=== PATIENT | female | born 1975 | race African-American/Black ===

== ENCOUNTER 2017-01-31 22:15 | Inpatient (IN) | payer BC ==
[~2017-01-31] VITALS: Ht 167.6 cm; Wt 82.6 kg
[~2017-01-31 22:15] MED LIST: FERR-36 PO; Hydrocodone/Acetaminophen PO
--- NOTE | 2017-01-31 22:29 | PHYS DOC ---
Past Medical History Past Medical History: GERD, Other Additional Past Medical Histor: multiple spontaneous pneumothoraxes Past Surgical History: Other Additional Past Surgical Histo: multiple chest tubes, PARTIAL HYSTERECTOMY Alcohol Use: Rarely Drug Use: None Adult General Chief Complaint Chief Complaint: SHORTNESS OF BREATH HPI HPI Patient is a 41 year old female who presents with 12 hr hx of right moderate chest discomfort with shortness of breath similar to previous collapsed lung. She's had several PTX before and had pleurodesis done by pulmonolgist Dr. Torres in 2013 and multiple VATS prior to this as well. Denies any leg pain or swelling. Review of Systems Review of Systems Constitutional: Denies fever or chills [] Eyes: Denies change in visual acuity, redness, or eye pain [] HENT: Denies nasal congestion or sore throat [] Respiratory: Denies cough or shortness of breath [] Cardiovascular: No additional information not addressed in HPI [] GI: Denies abdominal pain, nausea, vomiting, bloody stools or diarrhea [] : Denies dysuria or hematuria [] Musculoskeletal: Denies back pain or joint pain [] Integument: Denies rash or skin lesions [] Neurologic: Denies headache, focal weakness or sensory changes [] Endocrine: Denies polyuria or polydipsia [] Current Medications Current Medications Allergies Allergies Allergies Coded Allergies Type Severity Reaction Last Updated Verified Penicillins Allergy Intermediate "Swells" 11/04/13 Yes Physical Exam Physical Exam Constitutional: Well developed, well nourished, no acute distress, non-toxic appearance. [] HENT: Normocephalic, atraumatic, bilateral external ears normal, oropharynx moist, no oral exudates, nose normal. [] Eyes: PERRLA, EOMI, conjunctiva normal, no discharge. [] Neck: Normal range of motion, no tenderness, supple, no stridor. [] Cardiovascular:Heart rate regular rhythm, no murmur [] Lungs & Thorax: Bilateral breath sounds clear to auscultation [] Abdomen: Bowel sounds normal, soft, no tenderness, no masses, no pulsatile masses. [] Skin: Warm, dry, no erythema, no rash. [] Back: No tenderness, no CVA tenderness. [] Extremities: No tenderness, no cyanosis, no clubbing, ROM intact, no edema. [] Neurologic: Alert and oriented X 3, normal motor function, normal sensory function, no focal deficits noted. [] Psychologic: Affect normal, judgement normal, mood normal. [] Current Patient Data Vital Signs Vital Signs Date Time Temp Pulse Resp B/P (MAP) Pulse Ox O2 Delivery O2 Flow Rate FiO2 01/31/17 22:50 77 20 152/100 (117) 98 Room Air 01/31/17 22:20 97.8 97.8 Lab Values Laboratory Tests Test 01/31/17 22:35 White Blood Count 6.5 x10^3/uL (4.0-11.0) Red Blood Count 4.66 x10^6/uL (3.50-5.40) Hemoglobin 13.8 g/dL (12.0-15.5) Hematocrit 40.5 % (36.0-47.0) Mean Corpuscular Volume 87 fL (79-100) Mean Corpuscular Hemoglobin 30 pg (25-35) Mean Corpuscular Hemoglobin Concent 34 g/dL (31-37) Red Cell Distribution Width 14.2 % (11.5-14.5) Platelet Count 279 x10^3/uL (140-400) Neutrophils (%) (Auto) 50 % (31-73) Lymphocytes (%) (Auto) 43 % (24-48) Monocytes (%) (Auto) 5 % (0-9) Eosinophils (%) (Auto) 1 % (0-3) Basophils (%) (Auto) 1 % (0-3) Neutrophils # (Auto) 3.3 x10^3uL (1.8-7.7) Lymphocytes # (Auto) 2.8 x10^3/uL (1.0-4.8) Monocytes # (Auto) 0.3 x10^3/uL (0.0-1.1) Eosinophils # (Auto) 0.1 x10^3/uL (0.0-0.7) Basophils # (Auto) 0.0 x10^3/uL (0.0-0.2) Sodium Level 139 mmol/L (136-145) Potassium Level 4.2 mmol/L (3.5-5.1) Chloride Level 103 mmol/L (98-107) Carbon Dioxide Level 25 mmol/L (21-32) Anion Gap 11 (6-14) Blood Urea Nitrogen 11 mg/dL (7-20) Creatinine 0.6 mg/dL (0.6-1.0) Estimated GFR (Cockcroft-Gault) 134.0 BUN/Creatinine Ratio 18 (6-20) Glucose Level 107 mg/dL (70-99) H Calcium Level 9.3 mg/dL (8.5-10.1) Total Bilirubin 0.3 mg/dL (0.2-1.0) Aspartate Amino Transferase (AST) 18 U/L (15-37) Alanine Aminotransferase (ALT) 23 U/L (14-59) Alkaline Phosphatase 49 U/L (46-116) Total Protein 7.9 g/dL (6.4-8.2) Albumin 4.0 g/dL (3.4-5.0) Albumin/Globulin Ratio 1.0 (1.0-1.7) Laboratory Tests 01/31/17 22:35 Laboratory Tests 01/31/17 22:35 EKG EKG EKG [sinus rhythm rate of 76 no [facility]I [facility] normal interpretation by me] Radiology/Procedures Radiology/Procedures Chest x-ray [30-40% pneumothorax on the right] Course & Med Decision Making Course & Med Decision Making Pertinent Labs and Imaging studies reviewed. (See chart for details) The patient is admitted in stable pulse ox 95-96% on room air pulse rate in the 80s. Discussed case with pulmonology who asked that I place a chest tube. Discussed case with Dr. Mallory hospitalist covering for Dr. Camarena; agrees to admit the patient. No CT surgeon promotional marketing analyst tonight. Procedure right thoracostomy tube placement: consent obtained, time out done by me, 1% lido local 15-20 ml, betadine prep w usual sterile prep, 11 blade scalpel used for skin incision, chest cavity penetrated with blunt curved hemostats hunt of air seen/felt, finger sweep done prior to placement of tube no obvious adhesions, 24 FR placed, suture 0-silk placed, thoracic placement confirmed with cxr and gush of air on entrance to chest cavity, tolerated well no complications, blood loss less than 5 cc. lung not fully inflated yet on initial post placement xray. [] Dragon Disclaimer Dragon Disclaimer This electronic medical record was generated, in whole or in part, using a voice recognition dictation system. Departure Departure Impression: Primary Impression: Spontaneous pneumothorax Additional Impression: chest pain associated with spontaneous pneumothorax Disposition: ADMITTED INPATIENT Condition: IMPROVED Referrals: JAMARCUS CAMARENA MD (PCP) Problem Qualifiers AGUS ATWOOD MD Jan 31, 2017 22:29
[2017-01-31] MEDS ORDERED: ONDANSETRON PF 4 MG/2 ML VIAL. IV ONE (23:00)
[2017-01-31] MEDS ORDERED: LIDOCAINE 1% / SOD BICARB 8.4% 20 ML VIAL. IJ ONE (23:00)
[2017-01-31] MEDS ORDERED: HYDROmorphone 2 MG/ML VIAL IV ONE (23:00)
[2017-01-31] MEDS ORDERED: MIDAZOLAM HCL/PF 5 MG/5 ML VIAL. ONE (23:02)
[2017-01-31 23:12] LABS: BASO % 1 % (0-3); EOS % 1 % (0-3); HEMATOCRIT 40.5 % (36.0-47.0); HEMOGLOBIN 13.8 g/dL (12.0-15.5); LYMPH # 2.8 x10^3/uL (1.0-4.8); LYMPH % 43 % (24-48); MEAN CORPUSCULAR HEMOGLOBIN 30 pg (25-35); MEAN CORPUSCULAR HGB CONC 34 g/dL (31-37); MEAN CORPUSCULAR VOLUME 87 fL (79-100); MONO % 5 % (0-9); NEUT % 50 % (31-73); PLATELET COUNT 279 x10^3/uL (140-400); RED BLOOD COUNT 4.66 x10^6/uL (3.50-5.40); RED CELL DISTRIBUTION WIDTH 14.2 % (11.5-14.5); WHITE BLOOD COUNT 6.5 x10^3/uL (4.0-11.0)
[2017-01-31] MEDS ORDERED: ONDANSETRON PF 4 MG/2 ML VIAL. IV PRN (23:15)
[2017-01-31] MEDS ORDERED: fentaNYL PF VIAL 100 MCG/2 ML VIAL IV ONE (23:15)
[2017-01-31] MEDS ORDERED: ACETAMINOPHEN 325 MG TABLET. PO PRN (23:15)
[2017-01-31 23:20] LABS: CALCIUM 9.3 mg/dL (8.5-10.1); CREATININE 0.6 mg/dL (0.6-1.0); POTASSIUM 4.2 mmol/L (3.5-5.1)
[2017-01-31 23:26] LABS: TOTAL BILIRUBIN 0.3 mg/dL (0.2-1.0); TOTAL PROTEIN 7.9 g/dL (6.4-8.2)
[2017-01-31] MEDS: fentaNYL PF VIAL 100 MCG/2 ML VIAL IV PRN (23:30)
[2017-02-01] VITALS (27 sets, daily range): BP systolic 106–166; BP diastolic 5–88
[2017-02-01] MEDS ORDERED: MIDAZOLAM HCL/PF 2 MG/2 ML VIAL. IV ONE ×2
[2017-02-01] MEDS: fentaNYL PF VIAL 100 MCG/2 ML VIAL IV PRN ×5 (00:24→16:26)
[2017-02-01] MEDS ORDERED: FAMO40TA4 PO (01:51)
[2017-02-01] MEDS: KETOROLAC TROMETHAMINE 10 MG TABLET PO PRN ×3 (02:28→21:43)
[2017-02-01] MEDS ORDERED: ACETAMINOPHEN 325 MG TABLET. PO PRN (06:00)
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
[2017-02-01] MEDS: PANTOPRAZOLE 40 MG TABLET.DR. PO SCH (07:52)
--- NOTE | 2017-02-01 08:17 | RAD ---
AP chest radiograph 01/31/2017. Clinical indication: Shortness of breath with history of a pneumothorax on the right. Comparison: CTA chest 05/29/2016, chest radiograph 05/29/2016. Findings: There is a moderate right pneumothorax most prominent in the apex. Cardiac and mediastinal silhouettes are within normal limits. There is mild bibasilar atelectasis. Impression: Moderate right pneumothorax. Evaluation of subsequent radiographs demonstrates placement of a right chest tube.
--- NOTE | 2017-02-01 08:50 | RAD ---
AP chest radiograph January 31, 2017. Clinical indication: Confirm chest tube placement. Comparison: AP chest radiograph January 31, 2017 Findings: Interval placement of a right-sided thoracostomy tube with slight improvement in small to moderate right pneumothorax. Development of subcutaneous emphysema overlying the right hemithorax. Cardiac and mediastinal silhouettes are within normal limits. There is mild bibasilar atelectasis. Impression: Slight improvement in small to moderate right pneumothorax status post right thoracostomy tube placement.
[2017-02-01] MEDS: oxyCODONE IR 5 MG TABLET PO PRN ×3 (09:37→23:04)
--- NOTE | 2017-02-01 11:21 | PDOC ---
Provider Note Provider Note [id number] dyspnea cp ptx ct ct of chest. PARISH AGARWAL MD Feb 01, 2017 11:21
--- NOTE | 2017-02-01 12:00 | CONS ---
DATE OF CONSULTATION: 02/01/2017 I was asked to see this 41-year-old lady for chest pain, shortness of breath, pneumothorax. HISTORY OF PRESENT ILLNESS: She is a lifelong nonsmoker. She has had multiple pneumothoraces. This one is her number 8. Three years ago, she had another one. She underwent talc pleurodesis by Dr. Adams. Before that, she underwent VATS and pleurodesis without success. She fell when she was in [place] earlier this month and she felt pain in chest area. Yesterday, by 3:00 p.m., she had sudden chest pain and shortness of breath. She presented to the Emergency Room, was found to have right pneumothorax. A chest tube was placed by ER physician. She has not felt well for the past few days. She has had more cough and sinus drainage. She has gastroesophageal reflux symptoms. PAST MEDICAL HISTORY: Multiple pneumothoraces as mentioned above, partial hysterectomy. ALLERGIES: No known drug allergies. SOCIAL HISTORY: She does not smoke. FAMILY HISTORY: There is no history of lung disease. MEDICATIONS: Currently, she is on oxycodone, Protonix, Zofran, and fentanyl. REVIEW OF SYSTEMS: As mentioned as above, other systems otherwise negative. PHYSICAL EXAMINATION: GENERAL: This is a well-developed lady. VITAL SIGNS: O2 saturation is 96% on 2 liters of oxygen, respiratory rate 18, heart rate 80, blood pressure of 106/74, temperature 97.9. HEENT: Normocephalic, atraumatic. Pupils equal, round, reactive to light. Throat is clear. Nose is clear. NECK: There is no JVD, lymphadenopathy or thyromegaly. CARDIOVASCULAR: Regular rate and rhythm. PMI is nondisplaced. CHEST: Inspection is normal. LUNGS: There are diminished breath sounds on the left. There is a chest tube on the right side. ABDOMEN: Soft. Bowel sounds are good. There is no mass. EXTREMITIES: There is no edema. LYMPHATICS: There is no lymphadenopathy. NEUROLOGIC: Alert and oriented x 3. SKIN: Warm. I reviewed the following lab data: Chest x-ray done yesterday showed a moderate right pneumothorax. A chest tube was placed. Post chest tube placement, it shows improvement of pneumothorax. This morning, chest x-rays shows chest tube in place. There might be 20% pneumothorax. LABORATORY DATA: WBC 6.5, hemoglobin 13.8, platelets 279, sodium 139, potassium 4.2, chloride 103, CO2 of 25, glucose 107, BUN 11, creatinine 0.6, total bilirubin 0.3, AST 18, ALT 23, alkaline phosphatase 49. IMPRESSION: 1. Dyspnea and chest pain secondary to pneumothorax. 2. Spontaneous pneumothorax. 3. Abnormal chest x-ray. 4. Gastroesophageal reflux disease. PLAN AND RECOMMENDATIONS: 1. Titrate FiO2 to keep O2 saturation 92%. 2. Start bronchodilator. 3. I increased the suction to minus 40. 4. I will do a CT of the chest to have a better look at lung parenchyma and pneumothorax and CT. 5. She may require Thoracic Surgery consultation. 6. Protonix for gastroesophageal reflux disease. 7. Stress ulcer prophylaxis. 8. Start Lovenox for DVT prophylaxis. 9. Monitor respiratory status very closely. 10. Pain control. The findings and recommendations were discussed with the patient and RN. I have answered all of the patient's questions. She understood and agreed to proceed with the plan. Thank you very much for allowing me to participate in care of this very nice lady. PARISH AGARWAL M.D. DR: Marie JOB#: [id number] / [id number] CAMELIA
[2017-02-01] MEDS ORDERED: CONTRAST GIVEN MC PRN (12:15)
[2017-02-01] MEDS ORDERED: IOHEXOL 300 MG/ML 75 ML VIAL IV ONE (12:15)
--- NOTE | 2017-02-01 12:55 | EKG ---
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
--- NOTE | 2017-02-01 15:03 | RAD ---
CTA chest 02/01/2017 Clinical indication: Shortness of breath, pneumothorax and chest pain. Comparison: CTA chest 05/29/2016, chest radiograph 02/01/2017. Technique: Multiple CTA images of the chest were obtained with contrast to standard protocol. Coronal and sagittal reformations were obtained. MIPS were obtained. 70 mL Omnipaque 300 was administered intravenously. PQRS Compliance Statement: One or more of the following individualized dose reduction techniques were utilized for this examination: 1. Automated exposure control 2. Adjustment of the mA and/or kV according to patient size 3. Use of iterative reconstruction technique Findings: CTA chest: Heart size is normal without a pericardial effusion. No central or major segmental pulmonary artery filling defect to suggest pulmonary embolism. Examination is not optimized for evaluation of distal subsegmental pulmonary arterial branches. The thoracic aorta is normal in caliber. No axillary, mediastinal or hilar lymphadenopathy. The right thoracostomy tube courses along the posterior aspect of the right hemithorax posterior to multiple ribs and is not within the pleural space. There is a moderate right pneumothorax with patchy consolidation throughout the right lung, likely atelectasis. There is a trace right pleural effusion. There is an unchanged lentiform calcified structure in the posterior right lower lobe pleura. Stable 4 mm noncalcified nodule in the left lower lobe, unchanged since at least November 17, 2013 compatible with benign noncalcified granuloma or nodular scar. There are no destructive osseous lesions. Limited images of the upper abdomen: Grossly unremarkable. Impression: 1. No CT evidence of pulmonary embolism. 2. Moderate right pneumothorax with right thoracostomy tube malpositioned outside of the pleural space in the posterior right hemithorax. This result was discussed with patient's nurse, Alexus De Luna, by telephone at 3:00 PM 02/01/[address] Elías Shepherd. 3. Patchy consolidation in the right lung, likely atelectasis. 4. Trace right pleural effusion. 5. Stable partially calcified pleural structure posterior right lower lobe, may be sequela of prior infection or inflammation or pleurodesis.
[2017-02-01] MEDS: ENOXAPARIN 40 MG/0.4 ML SYRINGE. SQ SCH (16:00)
[2017-02-01] MEDS: ONDANSETRON PF 4 MG/2 ML VIAL. IV PRN (17:59)
--- NOTE | 2017-02-01 19:54 | PDOC2 ---
CONSULT Date of Consult Date of Consult DATE: 02/01/17 TIME: 19:35 Reason for Consult Reason for Consult: Spontaneous right pneumothorax Referring Physician Referring Physician: Blanquita Milton MD Identification/Chief Complaint Chief Complaint Chest pain and SOB Problems: Source Source: Chart review, Patient History of Present Illness Reason for Visit: The patient is a 41 year old female, who has had recurrent right sided pneumothoraces. She underwent a R VATS pleurodesis 3 years ago. She presented yesterday to the ER with chest pain and SOB. CXR showed an apical PTX. A chest tube was placed by the ER, without resolution of the PTX. Subsequent CT showed that the chest tube was not in the pleural space. There was a persistent mild to moderate apical/anterior PTX. The lateral lung is pleurodesed to the lateral chest wall pleura. I was consulted for further management. Past Medical History Pulmonary: Other Renal/: Other Current Medications Current Medications Current Medications Hydromorphone HCl (Dilaudid) 1 mg 1X ONCE IV ; Start 01/31/17 at 23:00; Stop at 23:02; Status DC Ondansetron HCl (Zofran) 4 mg 1X ONCE IV Last administered on 01/31/17 23:13 ; Start 01/31/17 at 23:00; Stop 01/31/17 at 23:01; Status DC Lidocaine/Sodium Bicarbonate (Buffered Lidocaine 1%) 20 ml 1X ONCE IJ Last administered on 01/31/17 23:25; Start 01/31/17 at 23:00; Stop 01/31/17 at 23:01 ; Status DC Fentanyl Citrate (Fentanyl 2ml Vial) 75 mcg 1X ONCE IV Last administered on 23:13; Start 01/31/17 at 23:15; Stop 01/31/17 at 23:16; Status DC Midazolam HCl (Versed) 5 mg STK-MED ONCE .ROUTE ; Start 01/31/17 at 23:02; Stop 01/31/17 at 23:03; Status DC Ondansetron HCl (Zofran) 4 mg PRN Q8HRS PRN IV NAUSEA/VOMITING; Start 01/31/17 at 23:15; Stop 02/01/17 at 06:01; Status DC Fentanyl Citrate (Fentanyl 2ml Vial) 50 mcg PRN Q1HR PRN IV PAIN Last administered on 02/01/17 02:51; Start 01/31/17 at 23:15; Stop 02/01/17 at 06:01 ; Status DC Acetaminophen (Tylenol) 650 mg PRN Q4HRS PRN PO FEVER; Start 01/31/17 at 23:15 ; Stop 02/01/17 at 06:01; Status DC Midazolam HCl (Versed) 1 mg 1X ONCE IV Last administered on 01/31/17 23:31; Start 02/01/17 at 00:00; Stop 02/01/17 at 00:17; Status DC Midazolam HCl (Versed) 1 mg 1X ONCE IV Last administered on 01/31/17 23:31; Start 02/01/17 at 00:00; Stop 02/01/17 at 00:17; Status DC Ketorolac Tromethamine (Toradol) 10 mg PRN Q8HRS PRN PO MILD PAIN Last administered on 02/01/17 11:40; Start 02/01/17 at 02:00; Stop 02/06/17 at 01:59 Fentanyl Citrate (Fentanyl 2ml Vial) 50 mcg PRN Q1HR PRN IV PAIN Last administered on 02/01/17 16:26; Start 02/01/17 at 06:00 Ondansetron HCl (Zofran) 4 mg PRN Q8HRS PRN IV NAUSEA/VOMITING Last administered on 02/01/17 17:59; Start 02/01/17 at 06:00 Acetaminophen (Tylenol) 650 mg PRN Q4HRS PRN PO FEVER; Start 02/01/17 at 06:00 Pantoprazole Sodium (Protonix) 40 mg DAILYAC PO Last administered on 02/01/17 07:52; Start 02/01/17 at 07:30 Oxycodone HCl (Roxicodone) 10 mg PRN Q4HRS PRN PO PAIN Last administered on 16:07; Start 02/01/17 at 09:15 Enoxaparin Sodium (Lovenox 40mg Syringe) 40 mg DAILY16 SQ ; Start 02/01/17 at 16 :00 Iohexol (Omnipaque 300 Mg/ml) 75 ml 1X ONCE IV Last administered on 02/01/17 12:50; Start 02/01/17 at 12:15; Stop 02/01/17 at 12:16; Status DC Info (Do NOT chart on this entry -- for MONITORING) 1 each PRN DAILY PRN MC SEE COMMENTS; Start 02/01/17 at 12:15; Stop 02/03/17 at 12:14 Active Scripts Active Reported Famotidine 40 Mg Tablet 40 Mg PO HS Allergies Allergies: Coded Allergies: Penicillins (Verified Allergy, Intermediate, "Swells", 11/04/13) ROS General: No: Chills, Night Sweats, Fatigue, Malaise, Appetite PSYCHOLOGICAL ROS: No: Anxiety, Behavioral Disorder, Concentration difficultie , Decreased libido, Depression, Disorientation, Hallucinations, Hostility, Irritablity, Memory difficulties, Mood Swings, Obsessive thoughts, Physical abuse, Sexual abuse, Sleep disturbances, Suicidal ideation Eyes: No Blurry vision, No Decreased vision, No Double vision, No Dry eyes, No Excessive tearing, No Eye Pain, No Itchy Eyes, No Loss of vision, No Photophobia , No Scotomata, No Uses contacts, No Uses glasses HEENT: No: Heacaches, Visual Changes, Hearing change, Nasal congestion, Nasal discharge, Oral lesions, Sinus pain, Sore Throat, Epistaxis, Sneezing, Snoring, Tinnitus, Vertigo, Vocal changes ALLERGY AND IMMUNOLOGY: No: Hives, Insect Bite Sensitivity, Itchy/Watery Eyes, Nasal Congestion, Post Nasal Drip, Seasonal Allergies Hematological and Lymphatic: No: Bleeding Problems, Blood Clots, Blood Transfusions, Brusing, Night Sweats, Pallor, Swollen Lymph Nodes, Other ENDOCRINE: No: Breast Changes, Galactorrhea, Hair Pattern Changes, Hot Flashes , Malaise/lethargy, Mood Swings, Palpitations, Polydipsia/polyuria, Skin Changes , Temperature Intolerance, Unexpected Weight Changes Breast: No New/Changing Breast Lumps, No Nipple changes, No Nipple discharge Respiratory: YES: Pleuritic Pain, Shortness of breath, No: Cough, Hemoptysis, Orthopnea, SOB with excertion, Sputum Changes, Stridor , Tachypnea, Wheezing Cardiovascular: No Chest Pain, No Palpitations, No Orthopnea, No Paroxysmal Noc. Dyspnea, No Edema, No Lt Headedness Gastrointestinal: No Nausea, No Vomiting, No Abdominal Pain, No Diarrhea, No Constipation, No Melena, No Hematochezia Genitourinary: No Dysuria, No Frequency, No Incontinence, No Hematuria, No Retention, No Discharge, No Urgency, No Pain, No Flank Pain Musculoskeletal: No Gait Disturbance, No Joint Pain, No Joint Stiffness, No Joint Swelling, No Muscle Pain, No Muscular Weakness, No Pain In:, No Swelling In: Neurological: No Behavorial Changes, No Bowel/Bladder ControlChng, No Confusion , No Dizziness, No Gait Disturbance, No Headaches, No Impaired Coord/balance, No Memory Loss, No Numbness/Tingling, No Seizures, No Speech Problems, No Tremors, No Visual Changes, No Weakness Skin: No Dry Skin, No Eczema, No Hair Changes, No Lumps, No Mole Changes, No Mottling, No Nail Changes, No Pruritus, No Rash, No Skin Lesion Changes, No Acne Physical Exam General: Alert, Oriented X3, No acute distress HEENT: Atraumatic, PERRLA Lungs: Other (reduced air entry) Heart: Regular rate, Normal S1, Normal S2 Abdomen: Soft, No tenderness Extremities: No edema Skin: No significant lesion Neuro: Normal gait, Normal speech, Strength at 5/5 X4 ext, Normal tone, Sensation intact, Cranial nerves 3-12 NL Psych/Mental Status: Mental status NL MUSCULOSKELETAL: No deformity Vitals VITALS Vital Signs Date Time Temp Pulse Resp B/P (MAP) Pulse Ox O2 Delivery O2 Flow Rate FiO2 02/01/17 18:00 68 18 136/83 (100) 98 Nasal Cannula 4.0 02/01/17 16:00 98.2 98.2 Labs Labs Laboratory Tests Test 01/31/17 22:35 White Blood Count 6.5 x10^3/uL (4.0-11.0) Red Blood Count 4.66 x10^6/uL (3.50-5.40) Hemoglobin 13.8 g/dL (12.0-15.5) Hematocrit 40.5 % (36.0-47.0) Mean Corpuscular Volume 87 fL (79-100) Mean Corpuscular Hemoglobin 30 pg (25-35) Mean Corpuscular Hemoglobin Concent 34 g/dL (31-37) Red Cell Distribution Width 14.2 % (11.5-14.5) Platelet Count 279 x10^3/uL (140-400) Neutrophils (%) (Auto) 50 % (31-73) Lymphocytes (%) (Auto) 43 % (24-48) Monocytes (%) (Auto) 5 % (0-9) Eosinophils (%) (Auto) 1 % (0-3) Basophils (%) (Auto) 1 % (0-3) Neutrophils # (Auto) 3.3 x10^3uL (1.8-7.7) Lymphocytes # (Auto) 2.8 x10^3/uL (1.0-4.8) Monocytes # (Auto) 0.3 x10^3/uL (0.0-1.1) Eosinophils # (Auto) 0.1 x10^3/uL (0.0-0.7) Basophils # (Auto) 0.0 x10^3/uL (0.0-0.2) Sodium Level 139 mmol/L (136-145) Potassium Level 4.2 mmol/L (3.5-5.1) Chloride Level 103 mmol/L (98-107) Carbon Dioxide Level 25 mmol/L (21-32) Anion Gap 11 (6-14) Blood Urea Nitrogen 11 mg/dL (7-20) Creatinine 0.6 mg/dL (0.6-1.0) Estimated GFR (Cockcroft-Gault) 134.0 BUN/Creatinine Ratio 18 (6-20) Glucose Level 107 mg/dL (70-99) Calcium Level 9.3 mg/dL (8.5-10.1) Total Bilirubin 0.3 mg/dL (0.2-1.0) Aspartate Amino Transf (AST/SGOT) 18 U/L (15-37) Alanine Aminotransferase (ALT/SGPT) 23 U/L (14-59) Alkaline Phosphatase 49 U/L (46-116) Total Protein 7.9 g/dL (6.4-8.2) Albumin 4.0 g/dL (3.4-5.0) Albumin/Globulin Ratio 1.0 (1.0-1.7) Laboratory Tests Test 01/31/17 22:35 White Blood Count 6.5 x10^3/uL (4.0-11.0) Red Blood Count 4.66 x10^6/uL (3.50-5.40) Hemoglobin 13.8 g/dL (12.0-15.5) Hematocrit 40.5 % (36.0-47.0) Mean Corpuscular Volume 87 fL (79-100) Mean Corpuscular Hemoglobin 30 pg (25-35) Mean Corpuscular Hemoglobin Concent 34 g/dL (31-37) Red Cell Distribution Width 14.2 % (11.5-14.5) Platelet Count 279 x10^3/uL (140-400) Neutrophils (%) (Auto) 50 % (31-73) Lymphocytes (%) (Auto) 43 % (24-48) Monocytes (%) (Auto) 5 % (0-9) Eosinophils (%) (Auto) 1 % (0-3) Basophils (%) (Auto) 1 % (0-3) Neutrophils # (Auto) 3.3 x10^3uL (1.8-7.7) Lymphocytes # (Auto) 2.8 x10^3/uL (1.0-4.8) Monocytes # (Auto) 0.3 x10^3/uL (0.0-1.1) Eosinophils # (Auto) 0.1 x10^3/uL (0.0-0.7) Basophils # (Auto) 0.0 x10^3/uL (0.0-0.2) Sodium Level 139 mmol/L (136-145) Potassium Level 4.2 mmol/L (3.5-5.1) Chloride Level 103 mmol/L (98-107) Carbon Dioxide Level 25 mmol/L (21-32) Anion Gap 11 (6-14) Blood Urea Nitrogen 11 mg/dL (7-20) Creatinine 0.6 mg/dL (0.6-1.0) Estimated GFR (Cockcroft-Gault) 134.0 BUN/Creatinine Ratio 18 (6-20) Glucose Level 107 mg/dL (70-99) Calcium Level 9.3 mg/dL (8.5-10.1) Total Bilirubin 0.3 mg/dL (0.2-1.0) Aspartate Amino Transf (AST/SGOT) 18 U/L (15-37) Alanine Aminotransferase (ALT/SGPT) 23 U/L (14-59) Alkaline Phosphatase 49 U/L (46-116) Total Protein 7.9 g/dL (6.4-8.2) Albumin 4.0 g/dL (3.4-5.0) Albumin/Globulin Ratio 1.0 (1.0-1.7) Images Images CTA chest: Heart size is normal without a pericardial effusion. No central or major segmental pulmonary artery filling defect to suggest pulmonary embolism. Examination is not optimized for evaluation of distal subsegmental pulmonary arterial branches. The thoracic aorta is normal in caliber. No axillary, mediastinal or hilar lymphadenopathy. The right thoracostomy tube courses along the posterior aspect of the right hemithorax posterior to multiple ribs and is not within the pleural space. There is a moderate right pneumothorax with patchy consolidation throughout the right lung, likely atelectasis. There is a trace right pleural effusion. There is an unchanged lentiform calcified structure in the posterior right lower lobe pleura. Stable 4 mm noncalcified nodule in the left lower lobe, unchanged since at least November 17, 2013 compatible with benign noncalcified granuloma or nodular scar. There are no destructive osseous lesions. Limited images of the upper abdomen: Grossly unremarkable. Assessment/Plan Assessment/Plan 41 year old female, who has had recurrent right sided pneumothoraces for several years. She underwent a R VATS pleurodesis 3 years ago. She presented yesterday to the ER with chest pain and SOB. CXR showed an apical PTX. A chest tube was placed by the ER, without resolution of the PTX. Subsequent CT showed that the chest tube was not in the pleural space. There was a persistent mild to moderate apical/anterior PTX. The lateral lung is pleurodesed to the lateral chest wall pleura. Once a patient has had a pleurodesis, a blind chest tube insertion should never be attempted. This is very dangerous, unless there is complete collapse of the lung, which is very unlikely in the context of a previous pleurodesis. Although the patient presents with a recurrent PTX, despite having undergone a VATS pleurodesis, the pleurodesis is partially successful, considering that the lateral lung is fully expanded and stuck up against the chest wall. This prevents the development of large pneumothoraces and tension PTX. I recommend placement of an apical pleural pigtail tube under CT guidance. This will fully expand the anterior/apical lung. Subsequently, we can attempt a bedside pleurodesis, best using Doxycycline (500mg Doxycycline in 30 mls of normal saline)-(would not use talc with a small pigtail, as it will clog the tube). Remove ER chest tube, which is in the subcutaneous tissue. The IR tube can be safely done tomorrow. The patient is stable. The PTX is also stable, and will not expand considering her pervious partial pleurodesis. No role for redo VATS, with previous partial pleurodesis. This is very dangerous and contraindicated. Patient needs to be educated, that nobody should attempt blind chest tube placement on the right SANDEE STUART MD Feb 01, 2017 19:54
[2017-02-02] VITALS (20 sets, daily range): BP systolic 108–144; BP diastolic 65–93
[2017-02-02 05:39] LABS: BASO % 0 % (0-3); EOS % 1 % (0-3); HEMATOCRIT 35.1 % (36.0-47.0); LYMPH # 2.1 x10^3/uL (1.0-4.8); LYMPH % 40 % (24-48); MEAN CORPUSCULAR HEMOGLOBIN 30 pg (25-35); MEAN CORPUSCULAR HGB CONC 34 g/dL (31-37); MEAN CORPUSCULAR VOLUME 86 fL (79-100); MONO % 7 % (0-9); NEUT % 52 % (31-73); PLATELET COUNT 190 x10^3/uL (140-400); RED BLOOD COUNT 4.07 x10^6/uL (3.50-5.40); RED CELL DISTRIBUTION WIDTH 14.3 % (11.5-14.5); WHITE BLOOD COUNT 5.4 x10^3/uL (4.0-11.0)
[2017-02-02 05:59] LABS: CALCIUM 8.9 mg/dL (8.5-10.1); CREATININE 0.7 mg/dL (0.6-1.0); GFR 112.1; POTASSIUM 4.1 mmol/L (3.5-5.1)
[2017-02-02] MEDS: PANTOPRAZOLE 40 MG TABLET.DR. PO SCH (08:11)
[2017-02-02] MEDS: fentaNYL PF VIAL 100 MCG/2 ML VIAL IV PRN ×4 (08:11→21:25)
--- NOTE | 2017-02-02 08:53 | RAD ---
AP portable chest radiograph 02/01/2017 Clinical History: Right pneumothorax with chest tube. An AP portable erect digital radiograph of the chest was obtained. Comparison study is dated 01/31/2017. The right-sided chest tube has been retracted, laterally and overlies the lateral aspect of the right mid pleural space. The cardiac silhouette is normal in size. The thoracic aorta is mildly tortuous. There is a small sized right pneumothorax which appears slightly decreased in size. Right basilar subsegmental atelectasis is noted. No pleural effusion is seen. The osseous structures are unchanged. Impression: The right-sided chest tube has been retracted, laterally. There is a small right pneumothorax which appears slightly decreased in size.
--- NOTE | 2017-02-02 09:06 | PDOC ---
IM PROGRESS NOTES- Subjective Subjective Chest pain is improving. Objective Vitals Vital Signs Date Time Temp Pulse Resp B/P (MAP) Pulse Ox O2 Delivery O2 Flow Rate FiO2 02/02/17 08:11 22 100 Nasal Cannula 4.0 02/02/17 08:00 68 131/72 (91) 02/02/17 07:00 98.2 98.2 Input & Output Intake and Output 02/02/17 07:00 Intake Total 1430 ml Output Total 500 ml Balance 930 ml Intake Oral 1430 ml Output Urine Total 500 ml # Voids 4 Physical Exam Physical Exam General appearance - alert,well appearing, and in no distress and oriented to person, place, and time Mental Status - alert, oriented to person, place, and time, affect appropriate to mood Head - normal Chest - decreased BS r lung. Heart - S1 and S2 normal Abdomen - soft, nontender, nondistended, no masses or organomegaly Neurological - alert and oriented Musculoskeletal - no muscular tenderness noted Extremities - no pedal edema Skin - warm and dry Labs Laboratory Tests Test 01/31/17 22:35 02/01/17 00:25 02/02/17 05:17 02/02/17 08:05 White Blood Count 6.5 x10^3/uL (4.0-11.0) 5.4 x10^3/uL (4.0-11.0) Red Blood Count 4.66 x10^6/uL (3.50-5.40) 4.07 x10^6/uL (3.50-5.40) Hemoglobin 13.8 g/dL (12.0-15.5) 12.0 g/dL (12.0-15.5) Hematocrit 40.5 % (36.0-47.0) 35.1 % (36.0-47.0) Mean Corpuscular Volume 87 fL (79-100) 86 fL (79-100) Mean Corpuscular Hemoglobin 30 pg (25-35) 30 pg (25-35) Mean Corpuscular Hemoglobin Concent 34 g/dL (31-37) 34 g/dL (31-37) Red Cell Distribution Width 14.2 % (11.5-14.5) 14.3 % (11.5-14.5) Platelet Count 279 x10^3/uL (140-400) 190 x10^3/uL (140-400) Neutrophils (%) (Auto) 50 % (31-73) 52 % (31-73) Lymphocytes (%) (Auto) 43 % (24-48) 40 % (24-48) Monocytes (%) (Auto) 5 % (0-9) 7 % (0-9) Eosinophils (%) (Auto) 1 % (0-3) 1 % (0-3) Basophils (%) (Auto) 1 % (0-3) 0 % (0-3) Neutrophils # (Auto) 3.3 x10^3uL (1.8-7.7) 2.8 x10^3uL (1.8-7.7) Lymphocytes # (Auto) 2.8 x10^3/uL (1.0-4.8) 2.1 x10^3/uL (1.0-4.8) Monocytes # (Auto) 0.3 x10^3/uL (0.0-1.1) 0.4 x10^3/uL (0.0-1.1) Eosinophils # (Auto) 0.1 x10^3/uL (0.0-0.7) 0.1 x10^3/uL (0.0-0.7) Basophils # (Auto) 0.0 x10^3/uL (0.0-0.2) 0.0 x10^3/uL (0.0-0.2) Sodium Level 139 mmol/L (136-145) 139 mmol/L (136-145) Potassium Level 4.2 mmol/L (3.5-5.1) 4.1 mmol/L (3.5-5.1) Chloride Level 103 mmol/L (98-107) 102 mmol/L (98-107) Carbon Dioxide Level 25 mmol/L (21-32) 31 mmol/L (21-32) Anion Gap 11 (6-14) 6 (6-14) Blood Urea Nitrogen 11 mg/dL (7-20) 9 mg/dL (7-20) Creatinine 0.6 mg/dL (0.6-1.0) 0.7 mg/dL (0.6-1.0) Estimated GFR (Cockcroft-Gault) 134.0 112.1 BUN/Creatinine Ratio 18 (6-20) Glucose Level 107 mg/dL (70-99) 102 mg/dL (70-99) Calcium Level 9.3 mg/dL (8.5-10.1) 8.9 mg/dL (8.5-10.1) Total Bilirubin 0.3 mg/dL (0.2-1.0) Aspartate Amino Transf (AST/SGOT) 18 U/L (15-37) Alanine Aminotransferase (ALT/SGPT) 23 U/L (14-59) Alkaline Phosphatase 49 U/L (46-116) Total Protein 7.9 g/dL (6.4-8.2) Albumin 4.0 g/dL (3.4-5.0) Albumin/Globulin Ratio 1.0 (1.0-1.7) Nasal Screen MRSA (PCR) Negative (Negative) Prothrombin Time 13.0 SEC (11.7-14.0) Prothromb Time International Ratio 1.0 (0.8-1.1) Laboratory Tests Test 02/02/17 05:17 02/02/17 08:05 White Blood Count 5.4 x10^3/uL (4.0-11.0) Red Blood Count 4.07 x10^6/uL (3.50-5.40) Hemoglobin 12.0 g/dL (12.0-15.5) Hematocrit 35.1 % (36.0-47.0) Mean Corpuscular Volume 86 fL (79-100) Mean Corpuscular Hemoglobin 30 pg (25-35) Mean Corpuscular Hemoglobin Concent 34 g/dL (31-37) Red Cell Distribution Width 14.3 % (11.5-14.5) Platelet Count 190 x10^3/uL (140-400) Neutrophils (%) (Auto) 52 % (31-73) Lymphocytes (%) (Auto) 40 % (24-48) Monocytes (%) (Auto) 7 % (0-9) Eosinophils (%) (Auto) 1 % (0-3) Basophils (%) (Auto) 0 % (0-3) Neutrophils # (Auto) 2.8 x10^3uL (1.8-7.7) Lymphocytes # (Auto) 2.1 x10^3/uL (1.0-4.8) Monocytes # (Auto) 0.4 x10^3/uL (0.0-1.1) Eosinophils # (Auto) 0.1 x10^3/uL (0.0-0.7) Basophils # (Auto) 0.0 x10^3/uL (0.0-0.2) Sodium Level 139 mmol/L (136-145) Potassium Level 4.1 mmol/L (3.5-5.1) Chloride Level 102 mmol/L (98-107) Carbon Dioxide Level 31 mmol/L (21-32) Anion Gap 6 (6-14) Blood Urea Nitrogen 9 mg/dL (7-20) Creatinine 0.7 mg/dL (0.6-1.0) Estimated GFR (Cockcroft-Gault) 112.1 Glucose Level 102 mg/dL (70-99) Calcium Level 8.9 mg/dL (8.5-10.1) Prothrombin Time 13.0 SEC (11.7-14.0) Prothromb Time International Ratio 1.0 (0.8-1.1) Meds Current Medications Enoxaparin Sodium (Lovenox 40mg Syringe) 40 mg DAILY16 SQ ; Start 02/01/17 at 16 :00 Info (Do NOT chart on this entry -- for MONITORING) 1 each PRN DAILY PRN MC SEE COMMENTS; Start 02/01/17 at 12:15; Stop 02/03/17 at 12:14 Iohexol (Omnipaque 300 Mg/ml) 75 ml 1X ONCE IV Last administered on 02/01/17t 12:50; Start 02/01/17 at 12:15; Stop 02/01/17 at 12:16; Status DC Oxycodone HCl (Roxicodone) 10 mg PRN Q4HRS PRN PO PAIN Last administered on t 23:04; Start 02/01/17 at 09:15 Assessment Assessment Recurrent right Pneumothorax. CTA chest shows that the chest tube is not in the pleural space. Chest tube to be removed and then placed again by IR. Pain is better controlled with Oxycodone. Plan Plan Has lot of pain. Add Oxycodone. The patient was seen and examined by me. Chart reviewed and plan of care formulated. Discussed with, reviewed and agree with BRIM SETTER's notes, plan of care and orders with modifications as necessary. For more details regarding further plans, please refer to the orders. JAMARCUS CRISOSTOMO MD Feb 02, 2017 09:06
--- NOTE | 2017-02-02 09:21 | PDOC ---
PULMONARY PROGRESS NOTES Subjective PT STILL IN PAIN MOSTLY ON LEFT SIDE NO INCREASE SOA Vitals Vital Signs Date Time Temp Pulse Resp B/P (MAP) Pulse Ox O2 Delivery O2 Flow Rate FiO2 02/02/17 08:11 22 100 Nasal Cannula 4.0 02/02/17 08:00 68 131/72 (91) 02/02/17 07:00 98.2 98.2 ROS: No Nausea, No Increase Cough General: Alert, No acute distress Lungs: Other (DECREASE BS ON LEFT) Cardiovascular: S1, S2 Abdomen: Soft, Non-tender Neuro Exam: Alert Extremities: No Edema Skin: Warm Labs Laboratory Tests Test 01/31/17 22:35 02/01/17 00:25 02/02/17 05:17 02/02/17 08:05 White Blood Count 6.5 x10^3/uL (4.0-11.0) 5.4 x10^3/uL (4.0-11.0) Red Blood Count 4.66 x10^6/uL (3.50-5.40) 4.07 x10^6/uL (3.50-5.40) Hemoglobin 13.8 g/dL (12.0-15.5) 12.0 g/dL (12.0-15.5) Hematocrit 40.5 % (36.0-47.0) 35.1 % (36.0-47.0) Mean Corpuscular Volume 87 fL (79-100) 86 fL (79-100) Mean Corpuscular Hemoglobin 30 pg (25-35) 30 pg (25-35) Mean Corpuscular Hemoglobin Concent 34 g/dL (31-37) 34 g/dL (31-37) Red Cell Distribution Width 14.2 % (11.5-14.5) 14.3 % (11.5-14.5) Platelet Count 279 x10^3/uL (140-400) 190 x10^3/uL (140-400) Neutrophils (%) (Auto) 50 % (31-73) 52 % (31-73) Lymphocytes (%) (Auto) 43 % (24-48) 40 % (24-48) Monocytes (%) (Auto) 5 % (0-9) 7 % (0-9) Eosinophils (%) (Auto) 1 % (0-3) 1 % (0-3) Basophils (%) (Auto) 1 % (0-3) 0 % (0-3) Neutrophils # (Auto) 3.3 x10^3uL (1.8-7.7) 2.8 x10^3uL (1.8-7.7) Lymphocytes # (Auto) 2.8 x10^3/uL (1.0-4.8) 2.1 x10^3/uL (1.0-4.8) Monocytes # (Auto) 0.3 x10^3/uL (0.0-1.1) 0.4 x10^3/uL (0.0-1.1) Eosinophils # (Auto) 0.1 x10^3/uL (0.0-0.7) 0.1 x10^3/uL (0.0-0.7) Basophils # (Auto) 0.0 x10^3/uL (0.0-0.2) 0.0 x10^3/uL (0.0-0.2) Sodium Level 139 mmol/L (136-145) 139 mmol/L (136-145) Potassium Level 4.2 mmol/L (3.5-5.1) 4.1 mmol/L (3.5-5.1) Chloride Level 103 mmol/L (98-107) 102 mmol/L (98-107) Carbon Dioxide Level 25 mmol/L (21-32) 31 mmol/L (21-32) Anion Gap 11 (6-14) 6 (6-14) Blood Urea Nitrogen 11 mg/dL (7-20) 9 mg/dL (7-20) Creatinine 0.6 mg/dL (0.6-1.0) 0.7 mg/dL (0.6-1.0) Estimated GFR (Cockcroft-Gault) 134.0 112.1 BUN/Creatinine Ratio 18 (6-20) Glucose Level 107 mg/dL (70-99) 102 mg/dL (70-99) Calcium Level 9.3 mg/dL (8.5-10.1) 8.9 mg/dL (8.5-10.1) Total Bilirubin 0.3 mg/dL (0.2-1.0) Aspartate Amino Transf (AST/SGOT) 18 U/L (15-37) Alanine Aminotransferase (ALT/SGPT) 23 U/L (14-59) Alkaline Phosphatase 49 U/L (46-116) Total Protein 7.9 g/dL (6.4-8.2) Albumin 4.0 g/dL (3.4-5.0) Albumin/Globulin Ratio 1.0 (1.0-1.7) Nasal Screen MRSA (PCR) Negative (Negative) Prothrombin Time 13.0 SEC (11.7-14.0) Prothromb Time International Ratio 1.0 (0.8-1.1) Laboratory Tests Test 02/02/17 05:17 02/02/17 08:05 White Blood Count 5.4 x10^3/uL (4.0-11.0) Red Blood Count 4.07 x10^6/uL (3.50-5.40) Hemoglobin 12.0 g/dL (12.0-15.5) Hematocrit 35.1 % (36.0-47.0) Mean Corpuscular Volume 86 fL (79-100) Mean Corpuscular Hemoglobin 30 pg (25-35) Mean Corpuscular Hemoglobin Concent 34 g/dL (31-37) Red Cell Distribution Width 14.3 % (11.5-14.5) Platelet Count 190 x10^3/uL (140-400) Neutrophils (%) (Auto) 52 % (31-73) Lymphocytes (%) (Auto) 40 % (24-48) Monocytes (%) (Auto) 7 % (0-9) Eosinophils (%) (Auto) 1 % (0-3) Basophils (%) (Auto) 0 % (0-3) Neutrophils # (Auto) 2.8 x10^3uL (1.8-7.7) Lymphocytes # (Auto) 2.1 x10^3/uL (1.0-4.8) Monocytes # (Auto) 0.4 x10^3/uL (0.0-1.1) Eosinophils # (Auto) 0.1 x10^3/uL (0.0-0.7) Basophils # (Auto) 0.0 x10^3/uL (0.0-0.2) Sodium Level 139 mmol/L (136-145) Potassium Level 4.1 mmol/L (3.5-5.1) Chloride Level 102 mmol/L (98-107) Carbon Dioxide Level 31 mmol/L (21-32) Anion Gap 6 (6-14) Blood Urea Nitrogen 9 mg/dL (7-20) Creatinine 0.7 mg/dL (0.6-1.0) Estimated GFR (Cockcroft-Gault) 112.1 Glucose Level 102 mg/dL (70-99) Calcium Level 8.9 mg/dL (8.5-10.1) Prothrombin Time 13.0 SEC (11.7-14.0) Prothromb Time International Ratio 1.0 (0.8-1.1) Medications Active Scripts Medications Dose Route/Sig Max Daily Dose Days Date Category Famotidine 40 Mg Tablet 40 Mg PO HS 02/01/[address] OF CHEST REVIEWED Impression: 1. No CT evidence of pulmonary embolism. 2. Moderate right pneumothorax with right thoracostomy tube malpositioned outside of the pleural space in the posterior right hemithorax. This result was discussed with patient's nurse, Alexus De Luna, by telephone at 3:00 PM 02/01/[address] Elías Shepherd. 3. Patchy consolidation in the right lung, likely atelectasis. 4. Trace right pleural effusion. 5. Stable partially calcified pleural structure posterior right lower lobe, may be sequela of prior infection or inflammation or pleurodesis. Impression . IMPRESSION: 1. Dyspnea and chest pain secondary to pneumothorax. 2. Spontaneous pneumothorax, LEFT 3. Abnormal chest x-ray. 4. Gastroesophageal reflux disease. Plan . CHEST TUBE PER IR APPRECIATE CT SURGEON INPUT 1. Titrate FiO2 to keep O2 saturation 92%. 2. Start bronchodilator. 3. DAILY CXR 4. I will do a CT of the chest REVIEWED SEE REPORT. 5. ORAL DIET 6. Protonix for gastroesophageal reflux disease. 7. Stress ulcer prophylaxis. 8. Start Lovenox for DVT prophylaxis. GERRY PANDYA MD Feb 02, 2017 09:21
[2017-02-02] MEDS ORDERED: fentaNYL PF VIAL 100 MCG/2 ML VIAL ONE (10:44)
[2017-02-02] MEDS ORDERED: MIDAZOLAM HCL/PF 2 MG/2 ML VIAL. ONE (10:44)
[2017-02-02] MEDS ORDERED: fentaNYL PF VIAL 100 MCG/2 ML VIAL IV ONE (11:00)
[2017-02-02] MEDS ORDERED: LIDOCAINE 1% / SOD BICARB 8.4% 20 ML VIAL. IJ ONE (11:00)
[2017-02-02] MEDS ORDERED: MIDAZOLAM HCL/PF 2 MG/2 ML VIAL. IV ONE (11:00)
--- NOTE | 2017-02-02 11:17 | PDOC ---
MODERATE SEDATION ASSESSMENT RISKS/ALTERNATIVES Risks/Alternatives Risks and alternatives of this type of sedation and procedure discussed with: RISK/ALTERNATIVES: Patient H & P ON CHART H & P H & P on chart and reviewed for co-morbid conditions and appropriate labs. H&P ON CHART: Yes STATUS PREG STATUS ASSESSED: Yes MEDS/ALLERGIES REVIEWED Meds/Allergies Reviewed Medications and Allergies including time and route of recently administered narcotics and sedatives. MEDS/ALLERGIES REVIEWED: Yes ASA RATING ASA RATING: II AIRWAY ASSESSMENT Airway Assessment Airway patency, oral function limitations, presence of caps, crowns, dentures, partials, and ability to extend neck assessed. AIRWAY ASSESSMENT: Yes MALLAMPATI SCORE MALLAMPATI SCORE: II PRE-SEDATION ASSESSMENT PRE-SEDATION ASSESSMENT: Yes OSMIN MAK MD Feb 02, 2017 11:17
--- NOTE | 2017-02-02 11:18 | PDOC ---
BRIEF OPERATIVE NOTE Pre-Op Diagnosis right pneumothorax Post-Op Diagnosis same Procedure Performed CT chest tube Surgeon Dorothy Anesthesia Type: Conscious Sedation Findings 8F chest tube Complications No immediate OSMIN MAK MD Feb 02, 2017 11:18
[2017-02-02] MEDS: ONDANSETRON PF 4 MG/2 ML VIAL. IV PRN (12:21)
[2017-02-02] MEDS: oxyCODONE IR 5 MG TABLET PO PRN ×2 (13:19→20:08)
--- NOTE | 2017-02-02 15:00 | RAD ---
Procedure: CT-guided right chest tube placement Clinical Indication: 41-year-old female with spontaneous pneumothorax Sedation: Conscious sedation was administered for 19 minutes. The patient was monitored by a qualified independent observer throughout the time of sedation. Please refer to the medical record for exact doses of medications utilized to achieve moderate sedation. Antibiotics: None Contrast: None Sterility: All elements of maximal sterile barrier technique including the use of a cap, mask, sterile gown, sterile gloves, large sterile sheet, appropriate hand hygiene, and 2% chlorhexidine for cutaneous antisepsis (or acceptable alternative antiseptic per current guidelines) were followed for this procedure. Consent: The procedure was explained in its entirety to the patient or the patients designated school admissions representative by a member of the treatment team, including a discussion of the risks, benefits and commonly accepted alternatives to the procedure, as well as the expected consequences of no therapy whatsoever. Discussion of the risks included, but was not limited to, those that are most frequent and those that are rare but possibly severe or life-threatening, as well as the possibility of unforeseen complications. Technique and Findings: Following informed consent, the patient was prepped and draped in usual sterile fashion. Preliminary CT scan of the area of interest was performed. 1% lidocaine was used to achieve local anesthesia over the area of interest. A small dermatotomy was made. Under periodic CT surveillance, a 21-gauge micropuncture needle was advanced into the pleural space until air was aspirated. This needle was then exchanged for 4 Ugandan sheath which was used to place an 0.035 wire into the pleural space. The 4 Ugandan sheath was then exchanged for an 8 Ugandan pigtail catheter. The catheter was sutured to the skin and placed to Pleur-evac drainage. Complications: None Impression: 1. CT-guided chest tube placement as described PQRS Compliance Statement: One or more of the following individualized dose reduction techniques were utilized for this examination: 1. Automated exposure control 2. Adjustment of the mA and/or kV according to patient size 3. Use of iterative reconstruction technique
[2017-02-02] MEDS: ENOXAPARIN 40 MG/0.4 ML SYRINGE. SQ SCH (15:03)
[2017-02-03] MEDS: oxyCODONE IR 5 MG TABLET PO PRN ×4 (00:49→20:54)
--- NOTE | 2017-02-03 01:46 | ACF ---
Admission Forms Criteria PNEUMOTHORAX Clinical Indications for Admission to Inpatient Care (Place 'X' for any and all applicable criteria): Admission to inpatient status for two mid-nights or more is indicated for ANY ONE of the following (1),(2): [ ]I. Pneumothorax caused by associated lung disease (eg, COPD, cystic fibrosis, lung cancer, AIDS)(6): [ ]II. Recurrent episode of pneumothorax9 [ ]III. Traumatic pneumothorax (10)(11)(12) [ ]IV. Tension pneumothorax [ ]V. Hypotension [ ]. Respiratory distress [ ]VII. Pneumothorax exacerbating significant comorbidity (eg, heart failure) [X]VIII. Inpatient admission required rather than observation care (see Pneumothorax: Observation Care guideline as appropriate) because of 1 or more of the following (13)(14) [ ]1) Symptomatic pneumothorax (eg, dyspnea, Tachypnea ) insufficiently responsive to outpatient or observation care treatment (eg, needle aspiration) [ ]2) Infection identified (eg, pneumonia) that requires inpatient management [ ]3) Severe pain requiring acute inpatient management [ ]4) Supplemental oxygen or respiratory treatments for over 24 hours that are performable only in acute inpatient settingOther significant finding or clinical cond judged not to be within the scope of observation care [X]5) Chest tube placement with active evacuation (eg, suction, drainage) [ ]6) Epidural analgesia [ ]7) Other condition, treatment, or monitoring requiring inpatient admission Extended stay beyond goal length of stay may be needed for (24) [ ]a) Comorbid pneumonia, or acute exacerbation of COPD [ ]b) Acute respiratory failure (eg, pulmonary collapse) [ ]c) Pneumothorax associated with trauma (eg, multiple fractured ribs) [ ]d) Persistent air leak(2)(5)(8)(30) [ ]e) Tension pneumothorax [ ]f) Pulmonary edema The original [employer] content created by [employer] has been revised. The portions of the content which have been revised are identified through the use of italic text, and [facility] has neither reviewed nor approved the modified material. All other unmodified content is copyright [employer]. Please see references footnoted in the original [facility] edition 2014 Admission Criteria Met?: Yes ANGEL HAMILTON Feb 03, 2017 01:46
[2017-02-03 03:05] VITALS: BP 110/72
[2017-02-03] MEDS: fentaNYL PF VIAL 100 MCG/2 ML VIAL IV PRN ×3 (04:11→22:57)
[2017-02-03 07:00] VITALS: BP 137/80
[2017-02-03] MEDS: PANTOPRAZOLE 40 MG TABLET.DR. PO SCH (07:30)
[2017-02-03] MEDS ORDERED: MAGNESIUM HYDROXIDE 2,400 MG/30 ML ORAL.SUSP. PO PRN (08:15)
--- NOTE | 2017-02-03 09:17 | PDOC ---
RAISA MCNAMARA VEHICLE MODIFICATION TECHNICIAN 02/03/17 0917: IM PROGRESS NOTES- Subjective Subjective Chest pain is improving. Objective Objective less distress r/t pain Vitals Vital Signs Date Time Temp Pulse Resp B/P (MAP) Pulse Ox O2 Delivery O2 Flow Rate FiO2 02/03/17 08:00 Nasal Cannula 2.0 02/03/17 07:00 98.7 82 22 137/80 (99) 96 98.7 Physical Exam Physical Exam Physical Exam: General appearance - alert, ill appearing, and in no distress Mental Status - alert, oriented to person, place, and time, affect appropriate to mood Head - normal Chest - decreased BS r lung., PCT R sided to suction Heart - S1 and S2 normal Abdomen - soft, nontender, nondistended, no masses or organomegaly Neurological - no acute focal neurological deficits noted. Musculoskeletal - no muscular tenderness noted Extremities - no pedal edema Skin - warm and dry Labs Laboratory Tests Test 02/02/17 05:17 02/02/17 08:05 White Blood Count 5.4 x10^3/uL (4.0-11.0) Red Blood Count 4.07 x10^6/uL (3.50-5.40) Hemoglobin 12.0 g/dL (12.0-15.5) Hematocrit 35.1 % (36.0-47.0) Mean Corpuscular Volume 86 fL (79-100) Mean Corpuscular Hemoglobin 30 pg (25-35) Mean Corpuscular Hemoglobin Concent 34 g/dL (31-37) Red Cell Distribution Width 14.3 % (11.5-14.5) Platelet Count 190 x10^3/uL (140-400) Neutrophils (%) (Auto) 52 % (31-73) Lymphocytes (%) (Auto) 40 % (24-48) Monocytes (%) (Auto) 7 % (0-9) Eosinophils (%) (Auto) 1 % (0-3) Basophils (%) (Auto) 0 % (0-3) Neutrophils # (Auto) 2.8 x10^3uL (1.8-7.7) Lymphocytes # (Auto) 2.1 x10^3/uL (1.0-4.8) Monocytes # (Auto) 0.4 x10^3/uL (0.0-1.1) Eosinophils # (Auto) 0.1 x10^3/uL (0.0-0.7) Basophils # (Auto) 0.0 x10^3/uL (0.0-0.2) Sodium Level 139 mmol/L (136-145) Potassium Level 4.1 mmol/L (3.5-5.1) Chloride Level 102 mmol/L (98-107) Carbon Dioxide Level 31 mmol/L (21-32) Anion Gap 6 (6-14) Blood Urea Nitrogen 9 mg/dL (7-20) Creatinine 0.7 mg/dL (0.6-1.0) Estimated GFR (Cockcroft-Gault) 112.1 Glucose Level 102 mg/dL (70-99) Calcium Level 8.9 mg/dL (8.5-10.1) Prothrombin Time 13.0 SEC (11.7-14.0) Prothromb Time International Ratio 1.0 (0.8-1.1) Meds Current Medications Fentanyl Citrate (Fentanyl 2ml Vial) 100 mcg 1X ONCE IV Last administered on 11:19; Start 02/02/17 at 11:00; Stop 02/02/17 at 11:01; Status DC Fentanyl Citrate (Fentanyl 2ml Vial) 100 mcg STK-MED ONCE .ROUTE ; Start at 10:44; Stop 02/02/17 at 10:45; Status DC Lidocaine/Sodium Bicarbonate (Buffered Lidocaine 1%) 20 ml 1X ONCE IJ Last administered on 02/02/17 11:18; Start 02/02/17 at 11:00; Stop 02/02/17 at 11:01 ; Status DC Magnesium Hydroxide (Milk Of Magnesia) 2,400 mg PRN DAILY PRN PO CONSTIPATION; Start 02/03/17 at 08:15 Midazolam HCl (Versed) 2 mg 1X ONCE IV Last administered on 02/02/17 11:19; Start 02/02/17 at 11:00; Stop 02/02/17 at 11:01; Status DC Midazolam HCl (Versed) 2 mg STK-MED ONCE .ROUTE ; Start 02/02/17 at 10:44; Stop 02/02/17 at 10:45; Status DC Assessment Assessment Plan 1. Spontaneous pneumothorax R sided #8 with h/o VATs, pleurodesis x2, and hysterectomy/oophorectomy for pulmonary endometriosis 2. dyspnea secondary to pneumothorax PLAN: pulmonary consult PCT-incorrect placement CTA chest report -DC 02/02 and new PCT reinserted. DVT/GI prophylaxis SCD/ZORAIDA PPI For more details regarding further plans, please refer to the orders. Plan Plan For more details regarding further plans, please refer to the orders. JAMARCUS CRISOSTOMO MD 02/03/17 0922: IM PROGRESS NOTES- Assessment Assessment c/o pain.Dyspnea better. The patient was seen and examined by me. Chart reviewed and plan of care formulated. Discussed with, reviewed and agree with MICROSTRATEGY ARCHITECT DEVELOPER's notes, plan of care and orders with modifications as necessary. For more details regarding further plans, please refer to the orders. RAISA MCNAMARA APRN Feb 03, 2017 09:17 JAMARCUS CRISOSTOMO MD Feb 03, 2017 09:22
--- NOTE | 2017-02-03 10:00 | PDOC ---
PULMONARY PROGRESS NOTES Subjective pt feels better less soa Vitals Vital Signs Date Time Temp Pulse Resp B/P (MAP) Pulse Ox O2 Delivery O2 Flow Rate FiO2 02/03/17 09:27 Nasal Cannula 2.0 02/03/17 07:00 98.7 82 22 137/80 (99) 96 98.7 ROS: No Nausea, No Increase Cough General: Alert, No acute distress Lungs: Clear Cardiovascular: S1, S2 Abdomen: Soft, Non-tender Neuro Exam: Alert Extremities: No Edema Skin: Warm Labs Laboratory Tests Test 02/02/17 05:17 02/02/17 08:05 White Blood Count 5.4 x10^3/uL (4.0-11.0) Red Blood Count 4.07 x10^6/uL (3.50-5.40) Hemoglobin 12.0 g/dL (12.0-15.5) Hematocrit 35.1 % (36.0-47.0) Mean Corpuscular Volume 86 fL (79-100) Mean Corpuscular Hemoglobin 30 pg (25-35) Mean Corpuscular Hemoglobin Concent 34 g/dL (31-37) Red Cell Distribution Width 14.3 % (11.5-14.5) Platelet Count 190 x10^3/uL (140-400) Neutrophils (%) (Auto) 52 % (31-73) Lymphocytes (%) (Auto) 40 % (24-48) Monocytes (%) (Auto) 7 % (0-9) Eosinophils (%) (Auto) 1 % (0-3) Basophils (%) (Auto) 0 % (0-3) Neutrophils # (Auto) 2.8 x10^3uL (1.8-7.7) Lymphocytes # (Auto) 2.1 x10^3/uL (1.0-4.8) Monocytes # (Auto) 0.4 x10^3/uL (0.0-1.1) Eosinophils # (Auto) 0.1 x10^3/uL (0.0-0.7) Basophils # (Auto) 0.0 x10^3/uL (0.0-0.2) Sodium Level 139 mmol/L (136-145) Potassium Level 4.1 mmol/L (3.5-5.1) Chloride Level 102 mmol/L (98-107) Carbon Dioxide Level 31 mmol/L (21-32) Anion Gap 6 (6-14) Blood Urea Nitrogen 9 mg/dL (7-20) Creatinine 0.7 mg/dL (0.6-1.0) Estimated GFR (Cockcroft-Gault) 112.1 Glucose Level 102 mg/dL (70-99) Calcium Level 8.9 mg/dL (8.5-10.1) Prothrombin Time 13.0 SEC (11.7-14.0) Prothromb Time International Ratio 1.0 (0.8-1.1) Medications Active Scripts Medications Dose Route/Sig Max Daily Dose Days Date Category Famotidine 40 Mg Tablet 40 Mg PO HS 02/01/[address] OF CHEST REVIEWED Impression: 1. No CT evidence of pulmonary embolism. 2. Moderate right pneumothorax with right thoracostomy tube malpositioned outside of the pleural space in the posterior right hemithorax. This result was discussed with patient's nurse, Alexus De Luna, by telephone at 3:00 PM 02/01/[address] Elías Shepherd. 3. Patchy consolidation in the right lung, likely atelectasis. 4. Trace right pleural effusion. 5. Stable partially calcified pleural structure posterior right lower lobe, may be sequela of prior infection or inflammation or pleurodesis. Impression . IMPRESSION: 1. Dyspnea and chest pain secondary to pneumothorax. 2. Spontaneous pneumothorax, LEFT 3. Abnormal chest x-ray. 4. Gastroesophageal reflux disease. Plan . CHEST TUBE PLACED BY IR NO AIRLEAK WILL D/C WALL SUCTION REPEAT CXR IN AM POSSIBLE PLEURODESIS IN AM . GERRY PANDYA MD Feb 03, 2017 10:00
[2017-02-03 11:00] VITALS: BP 116/71
--- NOTE | 2017-02-03 14:44 | RAD ---
Portable chest x-ray compared to similar exam dated 02/01/2017 for pneumothorax, chest tube placement. Findings: Pigtail chest tube is seen on the right side. There is a small pleural effusion on the left side. There is no definite residual apical pneumothorax on the right. Heart size within normal limits. No significant osseous abnormalities. Impression: 1. No discernible pneumothorax on the right, status post pigtail catheter placement. 2. Small left pleural effusion.
[2017-02-03 15:00] VITALS: BP 123/80
[2017-02-03] MEDS: ENOXAPARIN 40 MG/0.4 ML SYRINGE. SQ SCH (15:41)
[2017-02-03] MEDS: POLYETHYLENE GLYCOL 3350 17 GM PACKET. PO SCH (16:30)
[2017-02-03 20:00] VITALS: BP 124/72
[2017-02-03] MEDS: SENNOSIDES/DOCUSATE 8.6/50MG TABLET. PO SCH (20:54)
[2017-02-03 23:05] VITALS: BP 119/87
[2017-02-04 03:05] VITALS: BP 118/78
[2017-02-04] MEDS: oxyCODONE IR 5 MG TABLET PO PRN ×4 (03:52→22:37)
[2017-02-04 04:40] LABS: BASO % 0 % (0-3); EOS % 2 % (0-3); HEMATOCRIT 37.1 % (36.0-47.0); HEMOGLOBIN 12.4 g/dL (12.0-15.5); LYMPH # 2.1 x10^3/uL (1.0-4.8); LYMPH % 39 % (24-48); MEAN CORPUSCULAR HEMOGLOBIN 29 pg (25-35); MEAN CORPUSCULAR HGB CONC 33 g/dL (31-37); MEAN CORPUSCULAR VOLUME 88 fL (79-100); MONO % 7 % (0-9); NEUT % 52 % (31-73); PLATELET COUNT 196 x10^3/uL (140-400); RED BLOOD COUNT 4.23 x10^6/uL (3.50-5.40); RED CELL DISTRIBUTION WIDTH 13.8 % (11.5-14.5); WHITE BLOOD COUNT 5.4 x10^3/uL (4.0-11.0)
[2017-02-04 07:05] VITALS: BP 121/76
[2017-02-04] MEDS: PANTOPRAZOLE 40 MG TABLET.DR. PO SCH (08:22)
[2017-02-04] MEDS: POLYETHYLENE GLYCOL 3350 17 GM PACKET. PO SCH (08:23)
[2017-02-04] MEDS: SENNOSIDES/DOCUSATE 8.6/50MG TABLET. PO SCH ×2 (08:23→21:00)
--- NOTE | 2017-02-04 09:02 | PDOC ---
PULMONARY PROGRESS NOTES Subjective pt feels better less soa Vitals Vital Signs Date Time Temp Pulse Resp B/P (MAP) Pulse Ox O2 Delivery O2 Flow Rate FiO2 02/04/17 08:23 Nasal Cannula 2.0 02/04/17 07:05 98.2 76 16 121/76 (91) 100 98.2 ROS: No Nausea, No Increase Cough General: Alert, No acute distress Lungs: Clear Cardiovascular: S1, S2 Abdomen: Soft, Non-tender Neuro Exam: Alert Extremities: No Edema Skin: Warm Labs Laboratory Tests Test 02/04/17 03:00 White Blood Count 5.4 x10^3/uL (4.0-11.0) Red Blood Count 4.23 x10^6/uL (3.50-5.40) Hemoglobin 12.4 g/dL (12.0-15.5) Hematocrit 37.1 % (36.0-47.0) Mean Corpuscular Volume 88 fL (79-100) Mean Corpuscular Hemoglobin 29 pg (25-35) Mean Corpuscular Hemoglobin Concent 33 g/dL (31-37) Red Cell Distribution Width 13.8 % (11.5-14.5) Platelet Count 196 x10^3/uL (140-400) Neutrophils (%) (Auto) 52 % (31-73) Lymphocytes (%) (Auto) 39 % (24-48) Monocytes (%) (Auto) 7 % (0-9) Eosinophils (%) (Auto) 2 % (0-3) Basophils (%) (Auto) 0 % (0-3) Neutrophils # (Auto) 2.8 x10^3uL (1.8-7.7) Lymphocytes # (Auto) 2.1 x10^3/uL (1.0-4.8) Monocytes # (Auto) 0.4 x10^3/uL (0.0-1.1) Eosinophils # (Auto) 0.1 x10^3/uL (0.0-0.7) Basophils # (Auto) 0.0 x10^3/uL (0.0-0.2) Laboratory Tests Test 02/04/17 03:00 White Blood Count 5.4 x10^3/uL (4.0-11.0) Red Blood Count 4.23 x10^6/uL (3.50-5.40) Hemoglobin 12.4 g/dL (12.0-15.5) Hematocrit 37.1 % (36.0-47.0) Mean Corpuscular Volume 88 fL (79-100) Mean Corpuscular Hemoglobin 29 pg (25-35) Mean Corpuscular Hemoglobin Concent 33 g/dL (31-37) Red Cell Distribution Width 13.8 % (11.5-14.5) Platelet Count 196 x10^3/uL (140-400) Neutrophils (%) (Auto) 52 % (31-73) Lymphocytes (%) (Auto) 39 % (24-48) Monocytes (%) (Auto) 7 % (0-9) Eosinophils (%) (Auto) 2 % (0-3) Basophils (%) (Auto) 0 % (0-3) Neutrophils # (Auto) 2.8 x10^3uL (1.8-7.7) Lymphocytes # (Auto) 2.1 x10^3/uL (1.0-4.8) Monocytes # (Auto) 0.4 x10^3/uL (0.0-1.1) Eosinophils # (Auto) 0.1 x10^3/uL (0.0-0.7) Basophils # (Auto) 0.0 x10^3/uL (0.0-0.2) Medications Active Scripts Medications Dose Route/Sig Max Daily Dose Days Date Category Famotidine 40 Mg Tablet 40 Mg PO HS 02/01/[address] OF CHEST REVIEWED Impression: 1. No CT evidence of pulmonary embolism. 2. Moderate right pneumothorax with right thoracostomy tube malpositioned outside of the pleural space in the posterior right hemithorax. This result was discussed with patient's nurse, Alexus De Luna, by telephone at 3:00 PM 02/01/[address] Elías Shepherd. 3. Patchy consolidation in the right lung, likely atelectasis. 4. Trace right pleural effusion. 5. Stable partially calcified pleural structure posterior right lower lobe, may be sequela of prior infection or inflammation or pleurodesis. Impression . IMPRESSION: 1. Dyspnea and chest pain secondary to pneumothorax. 2. Spontaneous pneumothorax, LEFT 3. Abnormal chest x-ray. 4. Gastroesophageal reflux disease. Plan . CHEST TUBE PLACED BY IR NO AIRLEAK WILL D/C WALL SUCTION REPEAT CXR IN AM POSSIBLE PLEURODESIS IN AM . GERRY PANDYA MD Feb 04, 2017 09:02
--- NOTE | 2017-02-04 09:53 | PDOC ---
GIOVANNIJonelleRAISA MIN AUTO SEAT COVER INSTALLER 02/04/17 0953: IM PROGRESS NOTES- Subjective Subjective Chest pain is improving. Objective Objective less distress r/t pain Vitals Vital Signs Date Time Temp Pulse Resp B/P (MAP) Pulse Ox O2 Delivery O2 Flow Rate FiO2 02/04/17 08:23 Nasal Cannula 2.0 02/04/17 07:05 98.2 76 16 121/76 (91) 100 98.2 Input & Output Intake and Output 02/05/17 07:00 Intake Total 240 ml Balance 240 ml Intake Oral 240 ml # Voids 1 Physical Exam Physical Exam Physical Exam: General appearance - alert, ill appearing, and in no distress Mental Status - alert, oriented to person, place, and time, affect appropriate to mood Head - normal Chest - decreased BS r lung., PCT R sided to suction Heart - S1 and S2 normal Abdomen - soft, nontender, nondistended, no masses or organomegaly Neurological - no acute focal neurological deficits noted. Musculoskeletal - no muscular tenderness noted Extremities - no pedal edema Skin - warm and dry Labs Laboratory Tests Test 02/04/17 03:00 White Blood Count 5.4 x10^3/uL (4.0-11.0) Red Blood Count 4.23 x10^6/uL (3.50-5.40) Hemoglobin 12.4 g/dL (12.0-15.5) Hematocrit 37.1 % (36.0-47.0) Mean Corpuscular Volume 88 fL (79-100) Mean Corpuscular Hemoglobin 29 pg (25-35) Mean Corpuscular Hemoglobin Concent 33 g/dL (31-37) Red Cell Distribution Width 13.8 % (11.5-14.5) Platelet Count 196 x10^3/uL (140-400) Neutrophils (%) (Auto) 52 % (31-73) Lymphocytes (%) (Auto) 39 % (24-48) Monocytes (%) (Auto) 7 % (0-9) Eosinophils (%) (Auto) 2 % (0-3) Basophils (%) (Auto) 0 % (0-3) Neutrophils # (Auto) 2.8 x10^3uL (1.8-7.7) Lymphocytes # (Auto) 2.1 x10^3/uL (1.0-4.8) Monocytes # (Auto) 0.4 x10^3/uL (0.0-1.1) Eosinophils # (Auto) 0.1 x10^3/uL (0.0-0.7) Basophils # (Auto) 0.0 x10^3/uL (0.0-0.2) Laboratory Tests Test 02/04/17 03:00 White Blood Count 5.4 x10^3/uL (4.0-11.0) Red Blood Count 4.23 x10^6/uL (3.50-5.40) Hemoglobin 12.4 g/dL (12.0-15.5) Hematocrit 37.1 % (36.0-47.0) Mean Corpuscular Volume 88 fL (79-100) Mean Corpuscular Hemoglobin 29 pg (25-35) Mean Corpuscular Hemoglobin Concent 33 g/dL (31-37) Red Cell Distribution Width 13.8 % (11.5-14.5) Platelet Count 196 x10^3/uL (140-400) Neutrophils (%) (Auto) 52 % (31-73) Lymphocytes (%) (Auto) 39 % (24-48) Monocytes (%) (Auto) 7 % (0-9) Eosinophils (%) (Auto) 2 % (0-3) Basophils (%) (Auto) 0 % (0-3) Neutrophils # (Auto) 2.8 x10^3uL (1.8-7.7) Lymphocytes # (Auto) 2.1 x10^3/uL (1.0-4.8) Monocytes # (Auto) 0.4 x10^3/uL (0.0-1.1) Eosinophils # (Auto) 0.1 x10^3/uL (0.0-0.7) Basophils # (Auto) 0.0 x10^3/uL (0.0-0.2) Meds Current Medications Polyethylene Glycol (miraLAX PACKET) 17 gm DAILY PO Last administered on 08:23; Start 02/03/17 at 16:30 Senna/Docusate Sodium (Senna Plus) 2 tab BID PO Last administered on 02/04/17 08:23; Start 02/03/17 at 21:00 Assessment Assessment Assessment 1. Spontaneous pneumothorax R sided #8 with h/o VATs, pleurodesis x2, and hysterectomy/oophorectomy for pulmonary endometriosis 2. dyspnea secondary to pneumothorax PLAN: pulmonary consult PCT-incorrect placement CTA chest report -DC 02/02 and new PCT reinserted. DVT/GI prophylaxis SCD/ZORAIDA PPI For more details regarding further plans, please refer to the orders. Plan Plan For more details regarding further plans, please refer to the orders. JAMARCUS CRISOSTOMO MD 02/04/17 1011: IM PROGRESS NOTES- Assessment Assessment Chest pain and constipation is improving. Possible pleurodesis today. The patient was seen and examined by me. Chart reviewed and plan of care formulated. Discussed with, reviewed and agree with MANAGER PACKAGING's notes, plan of care and orders with modifications as necessary. For more details regarding further plans, please refer to the orders. RAISA MCNAMARA APRN Feb 04, 2017 09:53 JAMARCUS CRISOSTOMO MD Feb 04, 2017 10:11
[2017-02-04] MEDS: fentaNYL PF VIAL 100 MCG/2 ML VIAL IV PRN ×4 (10:27→20:59)
[2017-02-04 10:37] VITALS: BP 117/80
[2017-02-04 14:26] VITALS: BP 128/75
[2017-02-04] MEDS: ENOXAPARIN 40 MG/0.4 ML SYRINGE. SQ SCH (15:16)
--- NOTE | 2017-02-04 15:45 | RAD ---
Exam performed: One view chest. History: Chest tube follow-up. Date of service: 02/04/17. Comparison: Single view chest from 02/03/17. Single AP upright portable view chest findings: Study somewhat limited due to poor inspiration. Heart size and mediastinal silhouette is within limits of normal. Lungs are well expanded and clear. There is a right-sided chest tube in place. No pneumothorax. Trace left pleural effusion. Impression: Right-sided pigtail catheter in place. No definite pneumothorax seen.
[2017-02-04] MEDS ORDERED: DOXYCYCLINE HYCLATE IV ONE ×4 (16:00)
[2017-02-04] MEDS ORDERED: LIDOCAINE 1% IV ONE ×4 (16:00)
[2017-02-04] MEDS ORDERED: [UNRECOGNIZED DRUG - OTHER] IV ONE ×4 (16:00)
[2017-02-04] MEDS ORDERED: TOTAL VOLUME IV ONE ×4 (16:00)
[2017-02-04] MEDS ORDERED: KETOROLAC TROMETHAMINE 30 MG/ML INJ. IM ONE (16:30)
[2017-02-04] MEDS ORDERED: HYDROmorphone 2 MG/ML VIAL IVP ONE (17:15)
--- NOTE | 2017-02-04 17:59 | RAD ---
EXAM: Chest, single view. HISTORY: Chest pain. COMPARISON: 02/04/2017 FINDINGS: A frontal view of the chest obtained. There has been minimal interval increase in a small right pneumothorax. There is stable positioning of the right thoracostomy tube. There are small bilateral pleural effusions. There is diffuse lower lobe predominant interstitial infiltrate. The heart is normal in size. IMPRESSION: 1. Minimal interval increase in a small right pneumothorax. There is stable positioning of a right thoracostomy tube. 2. Stable small pleural effusions with diffuse lower lobe predominant interstitial infiltrate. Electronically signed by: Aura Horowitz MD (02/04/2017 5:56 PM) [facility]
[2017-02-04 19:44] VITALS: BP 111/63
[2017-02-04 23:38] VITALS: BP 120/78
[2017-02-05] MEDS: fentaNYL PF VIAL 100 MCG/2 ML VIAL IV PRN ×6 (00:58→22:34)
[2017-02-05 03:20] VITALS: BP 107/78
[2017-02-05 05:16] LABS: BASO % 0 % (0-3); EOS % 1 % (0-3); HEMATOCRIT 37.1 % (36.0-47.0); HEMOGLOBIN 12.6 g/dL (12.0-15.5); LYMPH # 1.5 x10^3/uL (1.0-4.8); LYMPH % 23 % (24-48); MEAN CORPUSCULAR HEMOGLOBIN 29 pg (25-35); MEAN CORPUSCULAR HGB CONC 34 g/dL (31-37); MEAN CORPUSCULAR VOLUME 86 fL (79-100); MONO % 6 % (0-9); NEUT % 70 % (31-73); PLATELET COUNT 208 x10^3/uL (140-400); RED BLOOD COUNT 4.32 x10^6/uL (3.50-5.40); RED CELL DISTRIBUTION WIDTH 13.7 % (11.5-14.5); WHITE BLOOD COUNT 6.8 x10^3/uL (4.0-11.0)
[2017-02-05 05:44] LABS: CALCIUM 8.9 mg/dL (8.5-10.1); CREATININE 0.6 mg/dL (0.6-1.0); POTASSIUM 4.1 mmol/L (3.5-5.1)
[2017-02-05 07:28] VITALS: BP 125/90
[2017-02-05] MEDS: oxyCODONE IR 5 MG TABLET PO PRN ×2 (07:44→18:29)
[2017-02-05] MEDS: SENNOSIDES/DOCUSATE 8.6/50MG TABLET. PO SCH ×2 (07:45→21:07)
[2017-02-05] MEDS: PANTOPRAZOLE 40 MG TABLET.DR. PO SCH (07:45)
[2017-02-05] MEDS: POLYETHYLENE GLYCOL 3350 17 GM PACKET. PO SCH (07:45)
--- NOTE | 2017-02-05 08:55 | PDOC ---
RAISA MCNAMARA EQUIPMENT MECHANIC 02/05/17 0855: IM PROGRESS NOTES- Subjective Subjective Chest pain is improving. Objective Objective less distress r/t pain Vitals Vital Signs Date Time Temp Pulse Resp B/P (MAP) Pulse Ox O2 Delivery O2 Flow Rate FiO2 02/05/17 08:46 94 Room Air 2.0 02/05/17 07:28 98.6 72 17 125/90 (102) 98.6 Physical Exam Physical Exam Physical Exam: General appearance - alert, ill appearing, and in no distress Mental Status - alert, oriented to person, place, and time, affect appropriate to mood Head - normal Chest - decreased BS r lung., PCT R sided water seal-bloody drainage collection chamber, yellow fluid per tubing Heart - S1 and S2 normal Abdomen - soft, nontender, nondistended, no masses or organomegaly Neurological - no acute focal neurological deficits noted. Musculoskeletal - no muscular tenderness noted Extremities - no pedal edema Skin - warm and dry Labs Laboratory Tests Test 02/04/17 03:00 02/05/17 03:40 White Blood Count 5.4 x10^3/uL (4.0-11.0) 6.8 x10^3/uL (4.0-11.0) Red Blood Count 4.23 x10^6/uL (3.50-5.40) 4.32 x10^6/uL (3.50-5.40) Hemoglobin 12.4 g/dL (12.0-15.5) 12.6 g/dL (12.0-15.5) Hematocrit 37.1 % (36.0-47.0) 37.1 % (36.0-47.0) Mean Corpuscular Volume 88 fL (79-100) 86 fL (79-100) Mean Corpuscular Hemoglobin 29 pg (25-35) 29 pg (25-35) Mean Corpuscular Hemoglobin Concent 33 g/dL (31-37) 34 g/dL (31-37) Red Cell Distribution Width 13.8 % (11.5-14.5) 13.7 % (11.5-14.5) Platelet Count 196 x10^3/uL (140-400) 208 x10^3/uL (140-400) Neutrophils (%) (Auto) 52 % (31-73) 70 % (31-73) Lymphocytes (%) (Auto) 39 % (24-48) 23 % (24-48) Monocytes (%) (Auto) 7 % (0-9) 6 % (0-9) Eosinophils (%) (Auto) 2 % (0-3) 1 % (0-3) Basophils (%) (Auto) 0 % (0-3) 0 % (0-3) Neutrophils # (Auto) 2.8 x10^3uL (1.8-7.7) 4.8 x10^3uL (1.8-7.7) Lymphocytes # (Auto) 2.1 x10^3/uL (1.0-4.8) 1.5 x10^3/uL (1.0-4.8) Monocytes # (Auto) 0.4 x10^3/uL (0.0-1.1) 0.4 x10^3/uL (0.0-1.1) Eosinophils # (Auto) 0.1 x10^3/uL (0.0-0.7) 0.0 x10^3/uL (0.0-0.7) Basophils # (Auto) 0.0 x10^3/uL (0.0-0.2) 0.0 x10^3/uL (0.0-0.2) Sodium Level 139 mmol/L (136-145) Potassium Level 4.1 mmol/L (3.5-5.1) Chloride Level 100 mmol/L (98-107) Carbon Dioxide Level 34 mmol/L (21-32) Anion Gap 5 (6-14) Blood Urea Nitrogen 8 mg/dL (7-20) Creatinine 0.6 mg/dL (0.6-1.0) Estimated GFR (Cockcroft-Gault) 134.0 Glucose Level 98 mg/dL (70-99) Calcium Level 8.9 mg/dL (8.5-10.1) Laboratory Tests Test 02/05/17 03:40 White Blood Count 6.8 x10^3/uL (4.0-11.0) Red Blood Count 4.32 x10^6/uL (3.50-5.40) Hemoglobin 12.6 g/dL (12.0-15.5) Hematocrit 37.1 % (36.0-47.0) Mean Corpuscular Volume 86 fL (79-100) Mean Corpuscular Hemoglobin 29 pg (25-35) Mean Corpuscular Hemoglobin Concent 34 g/dL (31-37) Red Cell Distribution Width 13.7 % (11.5-14.5) Platelet Count 208 x10^3/uL (140-400) Neutrophils (%) (Auto) 70 % (31-73) Lymphocytes (%) (Auto) 23 % (24-48) Monocytes (%) (Auto) 6 % (0-9) Eosinophils (%) (Auto) 1 % (0-3) Basophils (%) (Auto) 0 % (0-3) Neutrophils # (Auto) 4.8 x10^3uL (1.8-7.7) Lymphocytes # (Auto) 1.5 x10^3/uL (1.0-4.8) Monocytes # (Auto) 0.4 x10^3/uL (0.0-1.1) Eosinophils # (Auto) 0.0 x10^3/uL (0.0-0.7) Basophils # (Auto) 0.0 x10^3/uL (0.0-0.2) Sodium Level 139 mmol/L (136-145) Potassium Level 4.1 mmol/L (3.5-5.1) Chloride Level 100 mmol/L (98-107) Carbon Dioxide Level 34 mmol/L (21-32) Anion Gap 5 (6-14) Blood Urea Nitrogen 8 mg/dL (7-20) Creatinine 0.6 mg/dL (0.6-1.0) Estimated GFR (Cockcroft-Gault) 134.0 Glucose Level 98 mg/dL (70-99) Calcium Level 8.9 mg/dL (8.5-10.1) Meds Current Medications Doxycycline Hyclate 500 mg/ Lidocaine HCl 25 ml/Miscellaneous/ Sodium Chloride 76 ml @ 152 mls/hr 1X ONCE IV Last administered on 02/04/17 16:00; Start at 16:00; Stop 02/04/17 at 16:29; Status DC Hydromorphone HCl (Dilaudid) 1 mg 1X ONCE IVP Last administered on 02/04/17 17:18; Start 02/04/17 at 17:15; Stop 02/04/17 at 17:16; Status DC Ketorolac Tromethamine (Toradol) 30 mg 1X ONCE IM Last administered on t 16:36; Start 02/04/17 at 16:30; Stop 02/04/17 at 16:31; Status DC Assessment Assessment Assessment 1. Spontaneous pneumothorax R sided #8 with h/o VATs, pleurodesis x2, and hysterectomy/oophorectomy for pulmonary endometriosis 2. chest pain with dyspnea secondary to #1 3. constipation secondary to narcotics 4. GERD PLAN: pulmonary consult PCT-incorrect placement CTA chest report -DC 02/02 and new PCT reinserted. 02/04 PCT suction DC 02/05 CXR pending 02/05 pleurodeses planned DVT/GI prophylaxis SCD/ZORAIDA PPI constipation improving For more details regarding further plans, please refer to the orders. Plan Plan For more details regarding further plans, please refer to the orders. JAMARCUS CRISOSTOMO MD 02/05/17 0940: IM PROGRESS NOTES- Assessment Assessment Had pleurodesis yesterday.She is in lot more pain. she may need more pleurodesis today. The patient was seen and examined by me. Chart reviewed and plan of care formulated. Discussed with, reviewed and agree with CONTRACT CLERK's notes, plan of care and orders with modifications as necessary. For more details regarding further plans, please refer to the orders. RAISA MCNAMARA APRN Feb 05, 2017 08:55 JAMARCUS CRISOSTOMO MD Feb 05, 2017 09:40
--- NOTE | 2017-02-05 09:13 | RAD ---
Exam performed: One view chest. History: Follow-up pneumothorax. Date of service: 02/05/17. Comparison: Single view chest from 02/04/17 at 10:17 AM and 1723 hours and 02/03/17. Single AP upright portable view chest findings: Tiny right apical pneumothorax is unchanged. There is a right-sided pigtail catheter in place. Increasing right basilar atelectasis and small right pleural effusion. Ongoing small left basilar atelectasis. No pneumothorax seen on the left. Impression: Unchanged appearance of a tiny right apical pneumothorax with increasing right basilar atelectasis and small right pleural effusion. Left basilar atelectasis.
[2017-02-05 10:25] VITALS: BP 136/81
[2017-02-05] MEDS ORDERED: BISACODYL 10 MG SUPP.RECT. PR ONE (12:30)
[2017-02-05] MEDS ORDERED: MAGNESIUM CITRATE 296 ML SOLUTION. PO ONE (12:30)
--- NOTE | 2017-02-05 12:38 | PDOC ---
PULMONARY PROGRESS NOTES Subjective STILL IN PAIN FROM PLEURODESIS Vitals Vital Signs Date Time Temp Pulse Resp B/P (MAP) Pulse Ox O2 Delivery O2 Flow Rate FiO2 02/05/17 12:26 94 Room Air 2.0 02/05/17 10:25 98.1 66 18 136/81 (99) 98.1 ROS: No Nausea, No Abdominal Pain, No Increase Cough General: Alert, No acute distress Lungs: Clear Cardiovascular: S1, S2 Abdomen: Soft, Non-tender Neuro Exam: Alert Extremities: No Edema Skin: Warm Labs Laboratory Tests Test 02/04/17 03:00 02/05/17 03:40 White Blood Count 5.4 x10^3/uL (4.0-11.0) 6.8 x10^3/uL (4.0-11.0) Red Blood Count 4.23 x10^6/uL (3.50-5.40) 4.32 x10^6/uL (3.50-5.40) Hemoglobin 12.4 g/dL (12.0-15.5) 12.6 g/dL (12.0-15.5) Hematocrit 37.1 % (36.0-47.0) 37.1 % (36.0-47.0) Mean Corpuscular Volume 88 fL (79-100) 86 fL (79-100) Mean Corpuscular Hemoglobin 29 pg (25-35) 29 pg (25-35) Mean Corpuscular Hemoglobin Concent 33 g/dL (31-37) 34 g/dL (31-37) Red Cell Distribution Width 13.8 % (11.5-14.5) 13.7 % (11.5-14.5) Platelet Count 196 x10^3/uL (140-400) 208 x10^3/uL (140-400) Neutrophils (%) (Auto) 52 % (31-73) 70 % (31-73) Lymphocytes (%) (Auto) 39 % (24-48) 23 % (24-48) Monocytes (%) (Auto) 7 % (0-9) 6 % (0-9) Eosinophils (%) (Auto) 2 % (0-3) 1 % (0-3) Basophils (%) (Auto) 0 % (0-3) 0 % (0-3) Neutrophils # (Auto) 2.8 x10^3uL (1.8-7.7) 4.8 x10^3uL (1.8-7.7) Lymphocytes # (Auto) 2.1 x10^3/uL (1.0-4.8) 1.5 x10^3/uL (1.0-4.8) Monocytes # (Auto) 0.4 x10^3/uL (0.0-1.1) 0.4 x10^3/uL (0.0-1.1) Eosinophils # (Auto) 0.1 x10^3/uL (0.0-0.7) 0.0 x10^3/uL (0.0-0.7) Basophils # (Auto) 0.0 x10^3/uL (0.0-0.2) 0.0 x10^3/uL (0.0-0.2) Sodium Level 139 mmol/L (136-145) Potassium Level 4.1 mmol/L (3.5-5.1) Chloride Level 100 mmol/L (98-107) Carbon Dioxide Level 34 mmol/L (21-32) Anion Gap 5 (6-14) Blood Urea Nitrogen 8 mg/dL (7-20) Creatinine 0.6 mg/dL (0.6-1.0) Estimated GFR (Cockcroft-Gault) 134.0 Glucose Level 98 mg/dL (70-99) Calcium Level 8.9 mg/dL (8.5-10.1) Laboratory Tests Test 02/05/17 03:40 White Blood Count 6.8 x10^3/uL (4.0-11.0) Red Blood Count 4.32 x10^6/uL (3.50-5.40) Hemoglobin 12.6 g/dL (12.0-15.5) Hematocrit 37.1 % (36.0-47.0) Mean Corpuscular Volume 86 fL (79-100) Mean Corpuscular Hemoglobin 29 pg (25-35) Mean Corpuscular Hemoglobin Concent 34 g/dL (31-37) Red Cell Distribution Width 13.7 % (11.5-14.5) Platelet Count 208 x10^3/uL (140-400) Neutrophils (%) (Auto) 70 % (31-73) Lymphocytes (%) (Auto) 23 % (24-48) Monocytes (%) (Auto) 6 % (0-9) Eosinophils (%) (Auto) 1 % (0-3) Basophils (%) (Auto) 0 % (0-3) Neutrophils # (Auto) 4.8 x10^3uL (1.8-7.7) Lymphocytes # (Auto) 1.5 x10^3/uL (1.0-4.8) Monocytes # (Auto) 0.4 x10^3/uL (0.0-1.1) Eosinophils # (Auto) 0.0 x10^3/uL (0.0-0.7) Basophils # (Auto) 0.0 x10^3/uL (0.0-0.2) Sodium Level 139 mmol/L (136-145) Potassium Level 4.1 mmol/L (3.5-5.1) Chloride Level 100 mmol/L (98-107) Carbon Dioxide Level 34 mmol/L (21-32) Anion Gap 5 (6-14) Blood Urea Nitrogen 8 mg/dL (7-20) Creatinine 0.6 mg/dL (0.6-1.0) Estimated GFR (Cockcroft-Gault) 134.0 Glucose Level 98 mg/dL (70-99) Calcium Level 8.9 mg/dL (8.5-10.1) Medications Active Scripts Medications Dose Route/Sig Max Daily Dose Days Date Category Famotidine 40 Mg Tablet 40 Mg PO HS 02/01/[address] OF CHEST REVIEWED Impression: 1. No CT evidence of pulmonary embolism. 2. Moderate right pneumothorax with right thoracostomy tube malpositioned outside of the pleural space in the posterior right hemithorax. This result was discussed with patient's nurse, Alexus De Luna, by telephone at 3:00 PM 02/01/[address] Elías Shepherd. 3. Patchy consolidation in the right lung, likely atelectasis. 4. Trace right pleural effusion. 5. Stable partially calcified pleural structure posterior right lower lobe, may be sequela of prior infection or inflammation or pleurodesis. Impression . IMPRESSION: 1. Dyspnea and chest pain secondary to pneumothorax. 2. Spontaneous pneumothorax, LEFT 3. Abnormal chest x-ray. 4. Gastroesophageal reflux disease. Plan . CHEST TUBE PLACED BY IR/ PLEURODESIS YESTERDAY WILL D/C CHEST TUBE TODAY CXR NO [facility] HOME OK BY ME . GERRY PANDYA MD Feb 05, 2017 12:38
--- NOTE | 2017-02-05 12:56 | PDOC4 ---
PROCEDURE Procedure DOXYCYCLINE PLEURODESIS PERFORMED ON 02/04 LATE ENTRY I COULD NOT GET COMPUTER TO SIGN ON YESTERDAY SEE DICTATION GERRY PANDYA MD Feb 05, 2017 12:55
[2017-02-05] MEDS ORDERED: BISACODYL 10 MG SUPP.RECT. PR PRN (13:00)
--- NOTE | 2017-02-05 13:21 | OP ---
DATE OF SURGERY: 02/04/2017 ATTENDING PHYSICIAN: Noemí Camarena MD. PROCEDURE: Doxycycline pleurodesis. INDICATION: The patient with recurrent spontaneous pneumothorax with previous video-assisted thorascopic surgical intervention and previous talc pleurodesis presented with recurrent right-sided spontaneous pneumothorax. Chest tube was inserted by interventional radiologist. She has had no air leak for well over 24 hours. Chest x-ray shows no significant pneumothorax. I reviewed the risks, benefits and alternatives of doxycycline pleurodesis, she accepted. DESCRIPTION OF PROCEDURE: The was prepped in sterile fashion. I was able to instill a half of the dosage of doxycycline. Doxycycline was premixed. A total of 500 mg dissolved in a total volume of 50 mL. There was also lidocaine added 25 mL of a 1% solution. I was able to instill half the dosage a total of 25 mL of the doxycycline, the patient started to experience severe excruciating chest discomfort. The chest tube was clamped for 2 hours. PLAN: We will clamp tube for 2 hours. Repeat chest x-ray in the a.m. GERRY PANDYA MD DR: SAIMA/cristian JOB#: [id number] / [id number]
[2017-02-05 14:21] VITALS: BP 129/91
[2017-02-05] MEDS: ENOXAPARIN 40 MG/0.4 ML SYRINGE. SQ SCH (17:17)
[2017-02-05 19:00] VITALS: BP 146/88
[2017-02-05 22:41] VITALS: BP 135/93
[2017-02-06 02:51] VITALS: BP 133/84
[2017-02-06 07:00] VITALS: BP 108/70
[2017-02-06] MEDS: SENNOSIDES/DOCUSATE 8.6/50MG TABLET. PO SCH (07:38)
[2017-02-06] MEDS: POLYETHYLENE GLYCOL 3350 17 GM PACKET. PO SCH (07:38)
[2017-02-06] MEDS: PANTOPRAZOLE 40 MG TABLET.DR. PO SCH (07:38)
[2017-02-06] MEDS: oxyCODONE IR 5 MG TABLET PO PRN ×2 (07:52→11:53)
--- NOTE | 2017-02-06 09:00 | DISCH ---
DISCHARGE INSTRUCTIONS Condition on Discharge Condition on Discharge: Stable Activity After Discharge Activity Instructions for Disc: Activity as tolerated Diet after Discharge Diet after Discharge: Regular Contacting the DRLianne after DC Call your doctor for: Concerns you may have Follow-Up Follow up with: Dr.Pratip Crisostomo in 6 days on 02/12/17 JAMARCUS CRISOSTOMO MD Feb 06, 2017 09:00
[2017-02-06] MEDS ORDERED: SENN-22 PO (09:03)
[2017-02-06] MEDS ORDERED: OXYC5TAB PO (09:03)
--- NOTE | 2017-02-06 09:09 | PDOC ---
IM PROGRESS NOTES- Subjective Subjective Chest pain is improving. Objective Vitals Vital Signs Date Time Temp Pulse Resp B/P (MAP) Pulse Ox O2 Delivery O2 Flow Rate FiO2 02/06/17 07:52 96 Nasal Cannula 2.0 02/06/17 07:00 98.1 81 18 108/70 (83) 98.1 Physical Exam Physical Exam Physical Exam: General appearance - alert and in no distress Mental Status - alert, oriented to person, place, and time, affect appropriate to mood Head - normal Chest - decreased BS r lung Heart - S1 and S2 normal Abdomen - soft, nontender, nondistended, no masses or organomegaly Neurological - no acute focal neurological deficits noted. Musculoskeletal - no muscular tenderness noted Extremities - no pedal edema Skin - warm and dry Labs Laboratory Tests Test 02/05/17 03:40 White Blood Count 6.8 x10^3/uL (4.0-11.0) Red Blood Count 4.32 x10^6/uL (3.50-5.40) Hemoglobin 12.6 g/dL (12.0-15.5) Hematocrit 37.1 % (36.0-47.0) Mean Corpuscular Volume 86 fL (79-100) Mean Corpuscular Hemoglobin 29 pg (25-35) Mean Corpuscular Hemoglobin Concent 34 g/dL (31-37) Red Cell Distribution Width 13.7 % (11.5-14.5) Platelet Count 208 x10^3/uL (140-400) Neutrophils (%) (Auto) 70 % (31-73) Lymphocytes (%) (Auto) 23 % (24-48) Monocytes (%) (Auto) 6 % (0-9) Eosinophils (%) (Auto) 1 % (0-3) Basophils (%) (Auto) 0 % (0-3) Neutrophils # (Auto) 4.8 x10^3uL (1.8-7.7) Lymphocytes # (Auto) 1.5 x10^3/uL (1.0-4.8) Monocytes # (Auto) 0.4 x10^3/uL (0.0-1.1) Eosinophils # (Auto) 0.0 x10^3/uL (0.0-0.7) Basophils # (Auto) 0.0 x10^3/uL (0.0-0.2) Sodium Level 139 mmol/L (136-145) Potassium Level 4.1 mmol/L (3.5-5.1) Chloride Level 100 mmol/L (98-107) Carbon Dioxide Level 34 mmol/L (21-32) Anion Gap 5 (6-14) Blood Urea Nitrogen 8 mg/dL (7-20) Creatinine 0.6 mg/dL (0.6-1.0) Estimated GFR (Cockcroft-Gault) 134.0 Glucose Level 98 mg/dL (70-99) Calcium Level 8.9 mg/dL (8.5-10.1) Meds Current Medications Bisacodyl (Dulcolax Supp) 10 mg 1X ONCE NH ; Start 02/05/17 at 12:30; Stop at 12:31; Status Cancel Bisacodyl (Dulcolax Supp) 10 mg PRN 1X PRN NH IF NO RESPONSE FROM OTHER AGEN; Start 02/05/17 at 13:00 Fentanyl Citrate (Fentanyl 2ml Vial) 50 mcg PRN Q2HR PRN IV PAIN Last administered on 02/05/17 22:34; Start 02/05/17 at 09:30 Magnesium Citrate (Citroma) 296 ml 1X ONCE PO Last administered on 02/05/17 13:41; Start 02/05/17 at 12:30; Stop 02/05/17 at 12:35; Status DC Assessment Assessment Right Pneumothorax- resolved.s/p Pleurodesis. Constipation- better. Discharge today. see in office in 6 days. Had chest tube removed yesterday.Pain is better. Plan Plan For more details regarding further plans, please refer to the orders. JAMARCUS CRISOSTOMO MD Feb 06, 2017 09:09
[2017-02-06 11:00] VITALS: BP 124/79
--- NOTE | 2017-02-06 14:28 | RAD ---
Exam performed: One view chest. History: Pneumothorax, chest tube removal. Date of service: 02/06/17. Comparison: Single view chest from 817. Single AP upright portable view chest findings: Interval removal of right-sided chest tube. Right apical pneumothorax is redemonstrated however perhaps slightly smaller. Ongoing hazy right basilar opacity and pleural effusion likely a combination of atelectasis and effusion. Left lung is clear. Impression: Interval removal of a right-sided pigtail catheter with somewhat decreased right pneumothorax. Ongoing right basilar atelectasis/effusion
== END 2017-02-06 12:05 | disposition home or self-care (01) | DRG 201 ==
LOC: ER 22:15 → 1 WEST ICU 22:52 → 6 SOUTH 02-02 13:45
PROVIDERS: ADMIT Internal Medicine; ATTEND Internal Medicine
PROC: 3E0L3GC Introduction of Other Therapeutic Substance into Pleural Cavity, Percutaneous Approach (ICD-10-PCS; principal; 2017-02-04)
PROC: 0W9930Z Drainage of Right Pleural Cavity with Drainage Device, Percutaneous Approach (ICD-10-PCS; 2017-02-04)
DX: J93.83 Other pneumothorax (principal); K21.9 Gastro-esophageal reflux disease without esophagitis; W19.XXXA Unspecified fall, initial encounter; K59.00 Constipation, unspecified; Z82.3 Family history of stroke; Z82.49 Family history of ischemic heart disease and other diseases of the circulatory system; Z83.3 Family history of diabetes mellitus; K59.03 Drug induced constipation; N80.9 Endometriosis, unspecified; T40.605A Adverse effect of unspecified narcotics, initial encounter; Z88.0 Allergy status to penicillin; Z90.710 Acquired absence of both cervix and uterus
CPT/HCPCS: 32551; 32557; 36415; 71010; 71275; 80048; 80053; 85025; 85610; 87641; 93005; 96374; 96375; 96376; 99152; A4215; C1729; C1892; J1170; J1650; J1885; J2250; J2405; J3010; J3490; Q9967; 99285-25

== ENCOUNTER 2017-05-25 18:55 | Emergency (ER) | payer BC ==
[~2017-05-25] VITALS: Ht 167.6 cm; Wt 80.7 kg
[~2017-05-25 18:55] MED LIST changes: +FAMO40TA4 PO; +OXYC5TAB95 PO; +SENN-22 PO
--- NOTE | 2017-05-25 19:46 | PHYS DOC ---
Past Medical History Past Medical History: GERD, Other Additional Past Medical Histor: multiple spontaneous pneumothoraxes Past Surgical History: Other Additional Past Surgical Histo: multiple chest tubes, PARTIAL HYSTERECTOMY, PLEURODESIS Alcohol Use: Rarely Drug Use: None Adult General Chief Complaint Chief Complaint: SHORTNESS OF BREATH HPI HPI Patient is a 42 year old female who presents with complaint of shortness of breath. Patient states her symptoms started approximately 3 days ago and have been gradually worsening since onset. Patient denies any associated fever or cough with her symptoms. Patient states that she has had history of multiple pneumothoraces, last having a pneumothorax in January of this year. Patient follows with Dr. Adams of pulmonology. The patient denies any pain currently but states that she has had a pneumothorax that did not cause pain in the past. Patient denies any nausea, vomiting. Patient states that she had cold symptoms last month which lasted approximately 3 weeks and resolved spontaneously. Patient states that she had been feeling well since resolution of her cough until the last 3 days. Symptoms worsen with exertion. Review of Systems Review of Systems Constitutional: Denies fever or chills [] Eyes: Denies change in visual acuity, redness, or eye pain [] HENT: Denies nasal congestion or sore throat [] Respiratory: Shortness of breath, denies cough[] Cardiovascular: Denies chest pain or edema[] GI: Denies abdominal pain, nausea, vomiting, bloody stools or diarrhea [] : Denies dysuria or hematuria [] Musculoskeletal: Denies back pain or joint pain [] Integument: Denies rash or skin lesions [] Neurologic: Denies headache, focal weakness or sensory changes [] All other systems were reviewed and found to be within normal limits, except as documented in this note. Allergies Allergies Allergies Coded Allergies Type Severity Reaction Last Updated Verified Penicillins Allergy Intermediate "Swells" 11/04/13 Yes Physical Exam Physical Exam Constitutional: Alert, afebrile, appears in [id number] respiratory distress. [] HENT: Normocephalic, atraumatic, bilateral external ears normal, oropharynx moist, no oral exudates, nose normal. [] Eyes: PERRLA, EOMI, conjunctiva normal, no discharge. [] Neck: Normal range of motion, no tenderness, supple, no stridor. [] Cardiovascular:Heart rate regular rhythm, no murmur [] Lungs & Thorax: Diminished breath sounds in right upper and lower thorax, no rales, no wheezes[] Abdomen: Bowel sounds normal, soft, no tenderness, no masses, no pulsatile masses. [] Skin: Warm, dry, no erythema, no rash. [] Back: No tenderness, no CVA tenderness. [] Extremities: No tenderness, no cyanosis, no clubbing, ROM intact, no edema. [] Neurologic: Alert and oriented X 3, normal motor function, normal sensory function, no focal deficits noted. [] Current Patient Data Vital Signs Vital Signs Date Time Temp Pulse Resp B/P (MAP) Pulse Ox O2 Delivery O2 Flow Rate FiO2 05/25/17 19:00 97.9 76 18 163/95 (117) 99 Room Air 97.9 Lab Values Laboratory Tests Test 05/25/17 19:50 05/25/17 20:25 Sodium Level 142 mmol/L (136-145) Potassium Level 3.4 mmol/L (3.5-5.1) L Chloride Level 103 mmol/L (98-107) Carbon Dioxide Level 29 mmol/L (21-32) Anion Gap 10 (6-14) Blood Urea Nitrogen 9 mg/dL (7-20) Creatinine 0.8 mg/dL (0.6-1.0) Estimated GFR (Cockcroft-Gault) 95.6 BUN/Creatinine Ratio 11 (6-20) Glucose Level 116 mg/dL (70-99) H Calcium Level 8.8 mg/dL (8.5-10.1) Total Bilirubin 0.3 mg/dL (0.2-1.0) Aspartate Amino Transferase (AST) 13 U/L (15-37) L Alanine Aminotransferase (ALT) 18 U/L (14-59) Alkaline Phosphatase 47 U/L (46-116) Total Protein 7.2 g/dL (6.4-8.2) Albumin 3.7 g/dL (3.4-5.0) Albumin/Globulin Ratio 1.1 (1.0-1.7) White Blood Count 6.1 x10^3/uL (4.0-11.0) Red Blood Count 4.42 x10^6/uL (3.50-5.40) Hemoglobin 12.8 g/dL (12.0-15.5) Hematocrit 38.3 % (36.0-47.0) Mean Corpuscular Volume 87 fL (79-100) Mean Corpuscular Hemoglobin 29 pg (25-35) Mean Corpuscular Hemoglobin Concent 33 g/dL (31-37) Red Cell Distribution Width 14.2 % (11.5-14.5) Platelet Count 202 x10^3/uL (140-400) Neutrophils (%) (Auto) 58 % (31-73) Lymphocytes (%) (Auto) 33 % (24-48) Monocytes (%) (Auto) 7 % (0-9) Eosinophils (%) (Auto) 1 % (0-3) Basophils (%) (Auto) 1 % (0-3) Neutrophils # (Auto) 3.5 x10^3uL (1.8-7.7) Lymphocytes # (Auto) 2.0 x10^3/uL (1.0-4.8) Monocytes # (Auto) 0.4 x10^3/uL (0.0-1.1) Eosinophils # (Auto) 0.1 x10^3/uL (0.0-0.7) Basophils # (Auto) 0.0 x10^3/uL (0.0-0.2) Laboratory Tests 05/25/17 20:25 Laboratory Tests 05/25/17 19:50 EKG EKG Not performed[] Radiology/Procedures Radiology/Procedures Two-view chest x-ray interpreted by me: No evidence of acute pneumothorax, no pulmonary infiltrates or effusions, normal cardiac silhouette[] Course & Med Decision Making Course & Med Decision Making Pertinent Labs and Imaging studies reviewed. (See chart for details) Patient's chest x-ray and blood work show no acute life-threatening causes for the patient's shortness of breath. The patient's vital signs are stable. Patient does not meet Wells criteria for DVT or pulmonary embolism. I spoke with the patient regarding her test results. I did inform the patient that although her chest x-ray appears normal today, we cannot fully rule out a possible small pneumothorax. The patient however has had multiple chest CTs in the past and I am hesitant to conduct another CT at this time due to additional radiation exposure to the patient. I offered the patient admission to the hospital for continued monitoring and repeat a chest x-ray tomorrow to rule out pneumothorax. The patient carefully consider this and stated that she did not want to be admitted to the hospital at this time and that she would rather go home. The patient voices understanding of her current condition and does voice understanding that if she had a worsening pneumothorax this could present a potential life-threatening situation. 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 She also agreed to return immediately to the emergency department if her symptoms worsened in any way. Patient discharged and understands her discharge instructions. Dragon Disclaimer Dragon Disclaimer This electronic medical record was generated, in whole or in part, using a voice recognition dictation system. Departure Departure Impression: Primary Impression: Shortness of breath Disposition: 01 HOME, SELF-CARE Condition: IMPROVED Referrals: JAMARCUS CRISOSTOMO MD (PCP) Patient Instructions: Shortness of Breath Additional Instructions: Your chest x-ray did not show an obvious pneumothorax on today's visit. The source of your shortness of breath was not clearly identified today, however it does not appear to be life-threatening at this time. It is recommended however that you follow-up tomorrow with your museum security chief as she will need a repeat x- ray to make sure that you do not have evidence of pneumothorax. Please return immediately to the emergency department for any worsening symptoms. AGUS BELTRAN MD May 25, 2017 19:46
--- NOTE | 2017-05-25 20:04 | EKG ---
[facility] [address] [place] [address] Test Date: 2017-05-25 Test Time: 19:46:26 Pat Name: NATE ERIC Department: Room: Gender: F [employer] Supervisor: : 1975 Requested By: AGUS BELTRAN Order Number: [id number] Reading MD: Measurements Intervals [place] Rate: 60 P: 26 MO: 128 QRS: 17 QRSD: 88 T: -20 QT: 392 QTc: 395 Interpretive Statements SINUS RHYTHM MODERATE AMPLITUDE CRITERIA FOR LVH T ABNORMALITY IN ANTERIOR LEADS INFERIOR LEADS ABNORMAL ECG No previous ECG available for comparison
[2017-05-25 20:33] LABS: BASO % 1 % (0-3); EOS % 1 % (0-3); HEMATOCRIT 38.3 % (36.0-47.0); HEMOGLOBIN 12.8 g/dL (12.0-15.5); LYMPH % 33 % (24-48); MEAN CORPUSCULAR HEMOGLOBIN 29 pg (25-35); MEAN CORPUSCULAR HGB CONC 33 g/dL (31-37); MEAN CORPUSCULAR VOLUME 87 fL (79-100); MONO % 7 % (0-9); NEUT % 58 % (31-73); PLATELET COUNT 202 x10^3/uL (140-400); RED BLOOD COUNT 4.42 x10^6/uL (3.50-5.40); RED CELL DISTRIBUTION WIDTH 14.2 % (11.5-14.5); WHITE BLOOD COUNT 6.1 x10^3/uL (4.0-11.0)
[2017-05-25 20:41] LABS: CALCIUM 8.8 mg/dL (8.5-10.1); CREATININE 0.8 mg/dL (0.6-1.0); GFR 95.6; POTASSIUM 3.4 mmol/L (3.5-5.1)
[2017-05-25 20:46] LABS: ALBUMIN 3.7 g/dL (3.4-5.0); ALBUMIN/GLOBULIN RATIO 1.1 (1.0-1.7); TOTAL BILIRUBIN 0.3 mg/dL (0.2-1.0); TOTAL PROTEIN 7.2 g/dL (6.4-8.2)
[2017-05-25 22:54] VITALS: BP 166/82
--- NOTE | 2017-05-26 07:57 | RAD ---
Indication: History of stroke spontaneous pneumothorax on the right side. Shortness of breath Technique: AP and lateral views of the chest Comparison: Previous study from 04/14/2017 Findings: Heart is normal in size. Stable blunting of the right costophrenic angle. No focal consolidation the lungs. No pneumothorax or pleural effusion. Visualized bony thorax is within normal limits. Impression: No pneumothorax.
== END 2017-05-25 22:46 | disposition home or self-care (01) ==
LOC: ER 18:55
DX: R06.02 Shortness of breath (principal); K21.9 Gastro-esophageal reflux disease without esophagitis; Z90.711 Acquired absence of uterus with remaining cervical stump; Z88.0 Allergy status to penicillin
CPT/HCPCS: 36415; 71020; 80053; 85025; 93005; 99285-25

== ENCOUNTER → 2018-02-16 | Outpatient (CLI) | payer BC ==
--- NOTE | 2018-02-16 17:13 | RAD ---
Chest radiograph 02/16/2018 12:00 AM INDICATION: Shortness of breath with history of pneumothorax COMPARISON: Chest radiograph May 25, 2017 TECHNIQUE: Frontal and lateral views of the chest are provided. FINDINGS: The cardiomediastinal silhouette is within normal limits. There are no pleural effusions. There is no pulmonary vascular congestion. There is no pneumothorax. The lungs are clear. There is elevation the right hemidiaphragm which appears chronic. Mild interstitial changes appear chronic. No significant osseous abnormality is identified. IMPRESSION: No acute cardiopulmonary process. Electronically signed by: Apryl Kc MD (02/16/2018 5:10 PM) [id number]
== END | disposition home or self-care (01) ==
LOC: RAD 16:32
PROVIDERS: ATTEND Internal Medicine Pulmonary Disease
DX: R06.02 Shortness of breath (principal); K21.9 Gastro-esophageal reflux disease without esophagitis; Z88.0 Allergy status to penicillin; Z90.711 Acquired absence of uterus with remaining cervical stump; Z90.710 Acquired absence of both cervix and uterus; Z83.3 Family history of diabetes mellitus; Z82.3 Family history of stroke; Z82.49 Family history of ischemic heart disease and other diseases of the circulatory system
CPT/HCPCS: 71046

== ENCOUNTER → 2018-10-05 | Outpatient (CLI) | payer BC ==
[~2018-10-05] MED LIST changes: +OXYC5TAB4 PO; -OXYC5TAB95 PO
--- NOTE | 2018-10-06 10:21 | KCIC ---
Chest, PA and Lateral: Technique: PA and lateral views of the chest were obtained. History: Asthma, cough. Comparison: 02/17/2080. Findings: The heart and pulmonary vasculature appear within normal limits. The lungs are clear. The pleural margins are clear. Minimal evaluation of the right hemidiaphragm similar to prior exam. Impression: No acute chest process is seen. Electronically signed by: Shahid Walker MD (10/06/2018 10:18 AM) [facility]-[email or web address]
== END | disposition home or self-care (01) ==
LOC: KCIC 15:53
PROVIDERS: ATTEND Internal Medicine
DX: J45.909 Unspecified asthma, uncomplicated (principal)
CPT/HCPCS: 71046

== ENCOUNTER → 2019-02-02 | Outpatient (CLI) | payer BC ==
--- NOTE | 2019-02-02 15:54 | KCIC ---
Chest radiograph 02/02/2019 12:00 AM INDICATION: Cough and shortness of breath for 2 days COMPARISON: 10/05/2018 TECHNIQUE: Frontal and lateral views of the chest are provided. FINDINGS: The cardiomediastinal silhouette is within normal limits. There are no pleural effusions. There is no pulmonary vascular congestion. There is no pneumothorax. The lungs are clear. Minimal persistent elevation right hemidiaphragm with blunting of the right costophrenic angle suggestive of pleural thickening. No significant osseous abnormality is identified. IMPRESSION: No acute cardiopulmonary process. Minimal persistent elevation right hemidiaphragm with blunting of the right costophrenic angle suggestive of pleural thickening. Electronically signed by: Apryl Kc MD (02/02/2019 3:51 PM) [facility]-KCIC1
== END | disposition home or self-care (01) ==
LOC: KCIC 13:08
PROVIDERS: ATTEND Internal Medicine Critical Care Medicine
DX: R06.02 Shortness of breath (principal)
CPT/HCPCS: 71046

== ENCOUNTER 2019-06-01 10:16 | Emergency (ER) | payer BC ==
[~2019-06-01] VITALS: Ht 167.6 cm; Wt 80.7 kg
[2019-06-01] MEDS ORDERED: HYDROcodone/APAP 5/325MG 1 TAB TABLET PO ONE (11:00)
[2019-06-01] MEDS ORDERED: CYCLOBENZAPRINE 10 MG TABLET. PO ONE (11:00)
[2019-06-01 11:05] LABS: BILIRUBIN,URINE NEGATIVE (NEG); CLARITY,URINE CLEAR; COLOR,URINE YELLOW; NITRITE,URINE NEGATIVE (NEG); PROTEIN,URINE NEGATIVE (NEG-TRACE)
[2019-06-01 11:12] LABS: SQUAMOUS EPITHELIAL CELL,UR MANY /LPF
[2019-06-01 11:14] LABS: BACTERIA,URINE FEW /HPF (0-FEW); WBC,URINE OCC /HPF (0-4)
--- NOTE | 2019-06-01 11:15 | RAD ---
CHEST PA LATERAL History: Flank pain. History of pneumothorax. Comparison: February 02, 2019 Findings: No consolidation or pleural effusion. Normal heart size. No pneumothorax. Mild elevation of the right hemidiaphragm, unchanged. Right midlung linear atelectasis or scarring. Impression: 1. No acute cardiopulmonary process. Electronically signed by: Saad Victoria DO (06/01/2019 11:12 AM) [facility] [place]
[2019-06-01] MEDS ORDERED: CYCL10TA2 PO (11:47)
[2019-06-01] MEDS ORDERED: HYDR-3164 PO (11:47)
--- NOTE | 2019-06-01 11:47 | PHYS DOC ---
Past Medical History Past Medical History: GERD, Hypertension, Other Additional Past Medical Histor: multiple spontaneous pneumothoraxes Past Surgical History: Hysterectomy, Other Additional Past Surgical Histo: multiple chest tubes, PARTIAL HYSTERECTOMY, PLEURODESIS Alcohol Use: Rarely Drug Use: None Adult General Chief Complaint Chief Complaint: FLANK PAIN HPI HPI Patient is a 44 year old female patient with history of hypertension, GERD, frequent spontaneous pneumothorax who presents with complaining of right flank pain. Patient states she felt a pop in right lower back/flank after coughing about 30 minutes ago and developed severe pain that getting worse with movement. Patient denies shortness of breath, focal neuro deficit, dizziness, palpitation. Patient states she had the same symptoms with previous episodes of spontaneous pneumothorax and wants to make sure she doesn't have the same problem again. Patient rated her pain 8/10 but does not want to have pain medication at arrival to ER. Patient states she is currently getting treatment for UTI. Review of Systems Review of Systems Constitutional: Denies fever or chills [] Eyes: Denies change in visual acuity, redness, or eye pain [] HENT: Denies nasal congestion or sore throat [] Respiratory: Denies cough or shortness of breath [] Cardiovascular: No additional information not addressed in HPI [] GI: Denies abdominal pain, nausea, vomiting, bloody stools or diarrhea [] : Denies dysuria or hematuria [] Musculoskeletal: Reports back pain Integument: Denies rash or skin lesions [] Neurologic: Denies headache, focal weakness or sensory changes [] Endocrine: Denies polyuria or polydipsia [] All other systems were reviewed and found to be within normal limits, except as documented in this note. Current Medications Current Medications Current Medications Medications (Trade) Dose Ordered Sig/Ollie Start Time Stop Time Status Last Admin Dose Admin Acetaminophen/ Hydrocodone Bitart (Lortab 5/325) 1 tab 1X ONCE 06/01/19 11:00 06/01/19 11:01 DC 06/01/19 11:00 1 TAB Cyclobenzaprine HCl (Flexeril) 10 mg 1X ONCE 06/01/19 11:00 06/01/19 11:01 DC 06/01/19 11:00 10 MG Allergies Allergies Allergies Coded Allergies Type Severity Reaction Last Updated Verified Penicillins Allergy Intermediate "Swells" 11/04/13 Yes Physical Exam Physical Exam Constitutional: Well developed, well nourished, mild distress, non-toxic appearance. [] HENT: Normocephalic, atraumatic. Eyes: PERRLA, EOMI, conjunctiva normal, no discharge. [] Neck: Normal range of motion, no tenderness, supple, no stridor. [] Cardiovascular:Heart rate regular rhythm, no murmur [] Lungs & Thorax: Bilateral breath sounds clear to auscultation [] Abdomen: Bowel sounds normal, soft, no tenderness, no masses, no pulsatile masses. [] Skin: Warm, dry, no erythema, no rash. [] Back: Right lower prior spinal muscle tenderness and spasm without deformity , no CVA tenderness. [] Extremities: No tenderness, no cyanosis, no clubbing, ROM intact, no edema. [] Neurologic: Alert and oriented X 3, no focal deficits noted. [] Psychologic: Affect normal, judgement normal, mood normal. [] Current Patient Data Vital Signs Vital Signs Date Time Temp Pulse Resp B/P (MAP) Pulse Ox O2 Delivery O2 Flow Rate FiO2 06/01/19 11:00 15 99 Room Air 06/01/19 10:18 98.2 83 139/64 (89) 98.2 Lab Values Laboratory Tests Test 06/01/19 10:40 Urine Collection Type Void Urine Color Yellow Urine Clarity Clear Urine pH 6.0 Urine Specific [place] 1.015 Urine Protein Negative mg/dL (NEG-TRACE) Urine Glucose (UA) Negative mg/dL (NEG) Urine Ketones (Stick) Negative mg/dL (NEG) Urine Blood Negative (NEG) Urine Nitrite Negative (NEG) Urine Bilirubin Negative (NEG) Urine Urobilinogen Dipstick 1.0 mg/dL (0.2 mg/dL) Urine Leukocyte Esterase Negative (NEG) Urine RBC 1-2 /HPF (0-2) Urine WBC Occ /HPF (0-4) Urine Squamous Epithelial Cells Many /LPF Urine Bacteria Few /HPF (0-FEW) Urine Mucus Mod /LPF EKG EKG [] Radiology/Procedures Radiology/Procedures [][facility] [address] [place], [place] [id number] IMAGING REPORT Signed PATIENT: NATE ERIC ACCOUNT: [id number] : 1975 LOCATION: ER AGE: 44 SEX: F EXAM STATUS: REG ER ORD. PHYSICIAN: LES MCKENZIE MD REASON: flank pain, history of a spontaneous pneumothorax PROCEDURE: CHEST PA & LATERAL CHEST PA LATERAL History: Flank pain. History of pneumothorax. Comparison: February 02, 2019 Findings: No consolidation or pleural effusion. Normal heart size. No pneumothorax. Mild elevation of the right hemidiaphragm, unchanged. Right midlung linear atelectasis or scarring. Impression: 1. No acute cardiopulmonary process. Electronically signed by: Saad Victoria DO (06/01/2019 11:12 AM) [facility] [place] DICTATED and SIGNED BY: SAAD VICTORIA DO DATE: 06/01/191111 Course & Med Decision Making Course & Med Decision Making Pertinent Labs and Imaging studies reviewed. (See chart for details) Personal patient in ER showed 44-year-old female patient complaining of sudden onset of right lower back pain after coughing and concern for pneumothorax because of history of spontaneous pneumothorax. Patient had unremarkable physical exam except for muscle spasm of right lower back. Chest x-ray did not show pneumothorax. UA was normal. Patient treated with Flexeril and [place] with improvement of her pain. I've spoken with the patient and/or caregivers. I've explained the patient's condition, diagnosis and treatment plan based on information available to me at this time. I've answered the patient's and/or caregivers questions and addressed any concerns. The patient and/or caregivers have a good understanding the patient's diagnosis, condition and treatment plan as can be expected at this point. Vital signs have been stabilized. The patient's condition is stable for discharge from the emergency department. The patient will pursue further outpatient evaluation with her primary care provider or other designated consulting physician as outlined in the discharge instructions. Patient and/or caregivers are agreeable to this plan of care and follow-up instructions have been explained in detail. The patient and/or caregivers have received these instructions in written format and expressed understanding of these discharge instructions. The patient and her caregivers are aware that if any significant change in condition or worsening of symptoms should prompt him to immediately return to this of the closest emergency department. If an emergent department is not readily available I would encourage him to call 911. Rasta Disclaimer Rasta Disclaimer This electronic medical record was generated, in whole or in part, using a voice recognition dictation system. Departure Departure Impression: Primary Impression: Acute lumbosacral myofascial strain Disposition: 01 HOME, SELF-CARE (at 1142) Condition: IMPROVED Referrals: JAMARCUS CRISOSTOMO MD (PCP) Patient Instructions: Lumbosacral Strain Additional Instructions: Drink plenty of liquids Follow-up with your primary care physician in 3-5 days Return to ER if not getting better Apply ice on the affected area Thank you for visiting [facility]. We appreciate you trusting us with your care. If any additional problems come up don't hesitate to return to visit us. Please follow up with your primary care provider so they can plan additional care if needed and know about the problem that you had. If symptoms worsen come back to the Emergency Department. Any concerning symptoms that start such as chest pain, shortness of air, weakness or numbness on one side of the body, running high fevers or any other concerning symptoms return to the ER. Scripts Hydrocodone/Apap 5-325 (NORCO 5-325 TABLET) 1 Each Tablet 1 TAB PO PRN Q6HRS PRN for PAIN, #10 TAB 0 Refills Prov: LES MCKENZIE MD 06/01/19 Cyclobenzaprine Hcl (CYCLOBENZAPRINE HCL) 10 Mg Tablet 1 TAB PO TID, #21 TAB Prov: LES MCKENZIE MD 06/01/19 Problem Qualifiers Primary Impression: Acute lumbosacral myofascial strain Encounter type: initial encounter Qualified Codes: S39.012A - Strain of muscle, fascia and tendon of lower back, initial encounter LES MCKENZIE MD Jun 01, 2019 11:47
[2019-06-01 11:52] VITALS: BP 132/78
== END 2019-06-01 12:09 | disposition home or self-care (01) ==
LOC: ER 10:16
DX: S39.012A Strain of muscle, fascia and tendon of lower back, initial encounter (principal); K21.9 Gastro-esophageal reflux disease without esophagitis; I10 Essential (primary) hypertension; Z90.710 Acquired absence of both cervix and uterus; Z98.890 Other specified postprocedural states; Z88.0 Allergy status to penicillin; X58.XXXA Exposure to other specified factors, initial encounter; Y93.89 Activity, other specified; Y92.89 Other specified places as the place of occurrence of the external cause; Y99.8 Other external cause status
CPT/HCPCS: 71046; 81001; 99285

== ENCOUNTER → 2019-12-15 | Outpatient (CLI) | payer BC ==
[~2019-12-15] MED LIST changes: +CYCL10TA2 PO; +HYDR-3164 PO
--- NOTE | 2019-12-15 14:01 | KCIC ---
5 views of the lumbar spine 12/15/2019 INDICATION: Low back pain. Fall 2 months ago. Severe back pain beginning 4-5 days ago. COMPARISON STUDY: None available. FINDINGS: At the L3-L4 disc space there is a curvilinear calcification projecting posteriorly. This likely represents a partially calcified, disc bulge or herniation. No fracture or acute alignment abnormality is identified. Vertebral body heights and disc spaces are otherwise preserved. Facet joints remain aligned. No evidence of spondylolysis or spondylolisthesis is seen. IMPRESSION: 1.Possible partially calcified, mild disc bulge or herniation at L3-L4. If clinical concern persists, consider MRI evaluation. 2. No other acute radiographic abnormalities are identified Electronically signed by: Pedro Rascon MD (12/15/2019 1:58 PM) [id number]
== END | disposition home or self-care (01) ==
LOC: KCIC 10:15
PROVIDERS: ATTEND Internal Medicine
DX: M54.5 Low back pain (principal); W19.XXXA Unspecified fall, initial encounter; Y93.89 Activity, other specified; Y92.89 Other specified places as the place of occurrence of the external cause; Y99.8 Other external cause status; M51.86 Other intervertebral disc disorders, lumbar region
CPT/HCPCS: 72110

== ENCOUNTER 2020-01-12 02:41 | Emergency (ER) | payer BC ==
[~2020-01-12] VITALS: Ht 167.6 cm; Wt 80.9 kg
--- NOTE | 2020-01-12 03:12 | PHYS DOC ---
Past Medical History Past Medical History: GERD, Hypertension, Other Additional Past Medical Histor: multiple spontaneous pneumothoraxes (YUNG ART MD) Past Surgical History: Hysterectomy, Other Additional Past Surgical Histo: multiple chest tubes, PARTIAL HYSTERECTOMY, PLEURODESIS (YUNG ART MD) Smoking Status: Never Smoker Alcohol Use: Rarely Drug Use: None (YUNG ART MD) General Adult EDM: Chief Complaint: SHORTNESS OF BREATH HPI: HPI: Patient is a 44 year old female who presents with chief complaint of pain in the posterior right thorax. Patient states that she woke up coughing and after the coughing fit noticed that she had some pain in her right side. The pain is been persistent and consistent. It is worse with certain movements or coughing. Patient denies any shortness of breath reporting that she is able to breathe without difficulty but it is her it has hurt to breathe. Patient denies any chest pain, any change in cough and sputum production, fever or chills, and change in smell or taste, diarrhea, melena hematochezia or hematemesis. Patient also denied any rashes. Patient reports a history of spontaneous pneumothorax has had multiple right-sided chest tubes. (YUNG ART MD) Review of Systems: Review of Systems: Constitutional: Denies fever or chills. [] Eyes: Denies change in visual acuity. [] HENT: Denies nasal congestion or sore throat. [] Respiratory: See HPI [] Cardiovascular: Denies chest pain or edema. [] GI: Denies abdominal pain, nausea, vomiting, bloody stools or diarrhea. [] : Denies dysuria. [] Musculoskeletal: Denies back pain or joint pain. [] Integument: Denies rash. [] Neurologic: Denies headache, focal weakness or sensory changes. [] Endocrine: Denies polyuria or polydipsia. [] Lymphatic: Denies swollen glands. [] Psychiatric: Denies depression or anxiety. [] (YUNG ART MD) Heart Score: Risk Factors: Risk Factors: DM, Current or recent (<one month) smoker, HTN, HLP, family history of CAD, obesity. Risk Scores: Score 0 - 3: 2.5% MACE over next 6 weeks - Discharge Home Score 4 - 6: 20.3% MACE over next 6 weeks - Admit for Clinical Observation Score 7 - 10: 72.7% MACE over next 6 weeks - Early Invasive Strategies (YUNG ART MD) Current Medications: Current Medications Medications (Trade) Dose Ordered Sig/Ollie Start Time Stop Time Status Last Admin Dose Admin Ketorolac Tromethamine (Toradol 15mg Vial) 30 mg 1X ONCE 01/12/20 03:15 01/12/20 03:16 UNV (YUNG ART MD) Allergies: Allergies: Allergies Coded Allergies Type Severity Reaction Last Updated Verified Penicillins Allergy Intermediate "Swells" 11/04/13 Yes (YUNG ART MD) Physical Exam: PE: Constitutional: Well developed, well nourished, no acute distress, non-toxic appearance. [] HENT: Normocephalic, atraumatic, bilateral external ears normal, oropharynx moist, no oral exudates, nose normal. [] Eyes: PERRLA, EOMI, conjunctiva normal, no discharge. [] Neck: Normal range of motion, no tenderness, supple, no stridor. [] Cardiovascular:Heart rate regular rhythm, no murmur [] Lungs & Thorax: Occasional rhonchi bilaterally, breath sounds appear greater in the left than on the right side, no change to percussion. Chest wall tender to palpation reproducing her pain. [] Abdomen: Bowel sounds normal, soft, no tenderness, no masses, negative Chauhan sign, negative Rovsing sign, no CVA tenderness, no pulsatile masses. [] Skin: Warm, dry, no erythema, no rash. [] Back: No tenderness, no CVA tenderness. [] Extremities: No tenderness, no cyanosis, no clubbing, ROM intact, no edema. [] Psychologic: Affect normal, judgement normal, mood normal. [] (YUNG ART MD) Current Patient Data: Vital Signs: Vital Signs Date Time Temp Pulse Resp B/P (MAP) Pulse Ox O2 Delivery O2 Flow Rate FiO2 01/12/20 02:48 97.6 83 18 111/81 (91) 99 Room Air 97.6 (YUNG ART MD) EKG: EK bpm, normal axes, normal intervals, sinus rhythm, abnormal ECG [] (YUNG ART MD) Radiology/Procedures: Radiology/Procedures: [] (YUNG ART MD) Course & Med Decision Making: Course & Med Decision Making Pertinent Labs and Imaging studies reviewed. (See chart for details) 0532-the patient was seen and reevaluated on multiple occasions throughout her hospitalization here in the emergency department. Patient's pain improved with the Toradol. Chest x-ray indicated no obvious pneumothorax but the radiologist was concerned that there could be one present. A CT scan of the chest without contrast is now ordered. I discussed the findings with the patient. The patient will be turned over to Dr. Monteiro at 6:00AM [] (YUNG ART MD) Course & Med Decision Making Assumed care of patient from overnight physician. CT shows a very small pneumothorax. Patient was placed on oxygen and observed here in the emergency room. Pain has resolved and patient's oxygen is 100% on room air she would like to go home. I did offer his admission and she declined. 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 Patient's test results and vitals while in the ED were fully reviewed and discussed with the patient. Patient is stable and at this time does not need admission to the hospital. We have discussed strict return precautions and the importance of following up with their Primary Care Physician. Patient stated understanding and was given an opportunity to ask any questions. Patient is in agreement with plan. (SAADIA MONTEIRO MD) Dragon Disclaimer: Dragon Disclaimer: This electronic medical record was generated, in whole or in part, using a voice recognition dictation system. (YUNG ART MD) Departure Departure Impression: Primary Impression: Acute pneumothorax Disposition: 01 HOME, SELF-CARE Condition: STABLE Referrals: JAMARCUS CRISOSTOMO MD (PCP) Patient Instructions: Pneumothorax Justicifation of Admission Dx: Justifications for Admission: Justification of Admission Dx: N/A (YUNG ART MD) Justification of Admission Dx: Yes (SAADIA MONTEIRO MD) YUNG ART MD Jan 12, 2020 03:12 SAADIA MONTEIRO MD Jan 12, 2020 06:50
[2020-01-12 03:16] LABS: BASO % 1 % (0-3); EOS # 0.1 x10^3/uL (0.0-0.7); EOS % 2 % (0-3); HEMATOCRIT 38.8 % (36.0-47.0); HEMOGLOBIN 13.1 g/dL (12.0-15.5); LYMPH # 3.1 x10^3/uL (1.0-4.8); LYMPH % 50 % (24-48); MEAN CORPUSCULAR HEMOGLOBIN 29 pg (25-35); MEAN CORPUSCULAR HGB CONC 34 g/dL (31-37); MEAN CORPUSCULAR VOLUME 86 fL (79-100); MONO # 0.4 x10^3/uL (0.0-1.1); MONO % 6 % (0-9); NEUT # 2.6 x10^3/uL (1.8-7.7); NEUT % 41 % (31-73); PLATELET COUNT 248 x10^3/uL (140-400); RED BLOOD COUNT 4.49 x10^6/uL (3.50-5.40); RED CELL DISTRIBUTION WIDTH 13.9 % (11.5-14.5); WHITE BLOOD COUNT 6.3 x10^3/uL (4.0-11.0)
[2020-01-12] MEDS: KETOROLAC 15 MG/ML VIAL. IVP ONE (03:17)
[2020-01-12 03:22] LABS: CALCIUM 8.7 mg/dL (8.5-10.1); CREATININE 0.6 mg/dL (0.6-1.0); POTASSIUM 3.8 mmol/L (3.5-5.1)
[2020-01-12 03:28] LABS: ALBUMIN 3.6 g/dL (3.4-5.0); ALBUMIN/GLOBULIN RATIO 0.9 (1.0-1.7); TOTAL BILIRUBIN 0.3 mg/dL (0.2-1.0); TOTAL PROTEIN 7.5 g/dL (6.4-8.2)
--- NOTE | 2020-01-12 04:45 | RAD ---
INDICATION: Reason: back pain with a history of spont pneumothorax / Spl. Instructions: / History: COMPARISON: May 2019 FINDINGS: 2 view of chest obtained. No focal airspace consolidation. Elevation of the right hemidiaphragm. Cardiac silhouette is similar to prior. The right upper chest there is a curvilinear line seen approximately 9 mm from the costal margin. Along the right lateral chest there is a vertically oriented line seen approximately 2 mm from the costal margin seen only for a short distance. IMPRESSION: * No new region of airspace consolidation. * Within the right chest there is a faintly visualized obliquely oriented line near the right lung apex as well as along the right lateral chest. Questionable finding but a small pneumothorax is not excluded given this finding. Electronically signed by: Derrell Sung MD (01/12/2020 4:42 AM) [id number]
[2020-01-12 04:52] LABS: BILIRUBIN,URINE NEGATIVE (NEG); CLARITY,URINE CLEAR; COLOR,URINE YELLOW; NITRITE,URINE NEGATIVE (NEG); PROTEIN,URINE NEGATIVE (NEG-TRACE)
[2020-01-12 04:56] LABS: SQUAMOUS EPITHELIAL CELL,UR MANY /LPF
[2020-01-12 04:57] LABS: BACTERIA,URINE MODERATE /HPF (0-FEW); RBC,URINE RARE /HPF (0-2)
--- NOTE | 2020-01-12 06:09 | RAD ---
INDICATION: Reason: abn cxr / Spl. Instructions: / History: COMPARISON: Chest x-ray from earlier same day TECHNIQUE: Axial CT images obtained through the chest. No intravenous contrast. One or more of the following individualized dose reduction techniques were utilized for this examination: 1. Automated exposure control; 2. Adjustment of the mA and/or kV according to patient size; 3. Use of iterative reconstruction technique. FINDINGS: Small right-sided pneumothorax. There is some thickening of the pleura at the right chest base anteriorly. Repeat demonstration of dense calcifications of the right chest base posteriorly and medially along the pleura with surrounding opacity. This measures up to 44 x 20 mm. Linear opacity right chest base. Nonobstructive left renal stone and partially visualized upper abdomen. Calcified lymph nodes in the mediastinum could be sequela of old granulomatous disease. Limited evaluation of the mediastinum given lack of contrast but no aortic aneurysm is seen. Degenerative changes of the spine. IMPRESSION: Small right-sided pneumothorax. Repeat demonstration of dense calcifications at the right chest base. Electronically signed by: Derrell Sung MD (01/12/2020 6:05 AM) [id number]
[2020-01-12 07:30] VITALS: BP 119/67
--- NOTE | 2020-01-12 09:31 | EKG ---
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
== END 2020-01-12 07:32 | disposition home or self-care (01) ==
LOC: ER 02:41
DX: J93.9 Pneumothorax, unspecified (principal); M54.6 Pain in thoracic spine; R05 Cough; N20.0 Calculus of kidney; K21.9 Gastro-esophageal reflux disease without esophagitis; I10 Essential (primary) hypertension; Z88.0 Allergy status to penicillin
CPT/HCPCS: 36415; 71046; 71250; 80053; 81001; 83690; 85025; 87086; 93005; 96374; 99285; J1885

== ENCOUNTER → 2020-01-27 | Outpatient (CLI) | payer BC ==
[2020-01-12 07:30] VITALS: BP 119/67
--- NOTE | 2020-01-27 14:53 | KCIC ---
EXAMINATION: CHEST PA LATERAL CLINICAL HISTORY: Reason: FOLLOW UP CXR POST SPONTANEOUS PNEUMOTHORAX / Spl. Instructions: Pneumo 01/12/2020 / History: EXAM DATE/TIME: 01/27/2020 12:00 AM COMPARISON: Chest radiograph and CT chest 01/12/2020 FINDINGS: Lines, tubes, and devices: None. Cardiomediastinal silhouette: Within normal limits. Lungs and pleura: Increased size of the right pneumothorax. Calcified pleural plaques at the right lung base. No evidence of focal airspace consolidation or pleural effusion. Bones and soft tissues: No acute osseous abnormality. IMPRESSION: Mildly increased right pneumothorax. Electronically signed by: Hemant Blanco DO (01/27/2020 2:50 PM) [id number]
== END | disposition home or self-care (01) ==
LOC: KCIC 14:12
PROVIDERS: ATTEND Internal Medicine
DX: J93.83 Other pneumothorax (principal)
CPT/HCPCS: 71046

== ENCOUNTER → 2020-02-03 | Outpatient (CLI) | payer BC ==
[2020-01-12 07:30] VITALS: BP 119/67
--- NOTE | 2020-02-03 11:22 | KCIC ---
EXAM: CHEST PA LATERAL INDICATION: Reason: POST SPONTANEOUS PNEUMOTHORAX, PERSISTENT PAIN IN RT LOWER LUNG / Spl. Instructions: / History: . TECHNIQUE: Single view COMPARISON: Chest x-ray 01/27/2020 at 2:08 PM FINDINGS: The heart size is normal. The great vessels appear unremarkable. There is no hilar or mediastinal mass. The lungs are clear. Right apical pneumothorax and small pleural effusion are redemonstrated. This pneumothorax appears slightly smaller in the interval. There are no significant osseous abnormalities. IMPRESSION: Slightly smaller right apical pneumothorax. No evidence of tension. FOR INTERNAL CODING PURPOSES Critical result: Findings discussed with UVALDO DONNELLY at 02/03/2020 11:18 AM. RESULT CODE: (C) Electronically signed by: Cristo Ho MD (02/03/2020 11:19 AM) [id number]
== END ==
LOC: KCIC 10:40
PROVIDERS: ATTEND Internal Medicine Critical Care Medicine
DX: J93.83 Other pneumothorax (principal); J90 Pleural effusion, not elsewhere classified
CPT/HCPCS: 71046

== ENCOUNTER 2020-04-14 20:23 | Inpatient (IN) | payer BC ==
[~2020-04-14] VITALS: Ht 167.6 cm; Wt 79.0 kg
--- NOTE | 2020-04-14 22:54 | PHYS DOC ---
Past Medical History Past Medical History: GERD, Hypertension, Other Additional Past Medical Histor: multiple spontaneous pneumothoraxes Past Surgical History: Hysterectomy, Other Additional Past Surgical Histo: multiple chest tubes, PARTIAL HYSTERECTOMY, PLEURODESIS Smoking Status: Never Smoker Alcohol Use: Rarely Drug Use: None General Adult EDM: Chief Complaint: SHORTNESS OF BREATH HPI: HPI: Patient is a 45 year old female presents with right-sided chest discomfort that began today. Patient was diagnosed with COVID-19 10 days ago and has had a cough but never had fever. Patient had vomiting and diarrhea at the beginning but that has since resolved. Today patient began having increased shortness of breath and worse with deep breaths on the right side of her chest that is sharp in nature. Patient had some increased dyspnea as well. Review of Systems: Review of Systems: Constitutional: Denies fever or chills. [] Eyes: Denies change in visual acuity. [] HENT: Complains of congestion Respiratory: Complains of cough and shortness of breath Cardiovascular: Complains of right-sided chest pain GI: Denies abdominal pain, nausea, vomiting, bloody stools or diarrhea. [] : Denies dysuria. [] Musculoskeletal: Denies back pain or joint pain. [] Integument: Denies rash. [] Neurologic: Denies headache, focal weakness or sensory changes. [] Endocrine: Denies polyuria or polydipsia. [] Lymphatic: Denies swollen glands. [] Psychiatric: Denies depression or anxiety. [] Heart Score: Risk Factors: Risk Factors: DM, Current or recent (<one month) smoker, HTN, HLP, family history of CAD, obesity. Risk Scores: Score 0 - 3: 2.5% MACE over next 6 weeks - Discharge Home Score 4 - 6: 20.3% MACE over next 6 weeks - Admit for Clinical Observation Score 7 - 10: 72.7% MACE over next 6 weeks - Early Invasive Strategies Allergies: Allergies: Allergies Coded Allergies Type Severity Reaction Last Updated Verified Penicillins Allergy Intermediate "Swells" 11/04/13 Yes Physical Exam: PE: Constitutional: Well developed, well nourished, no acute distress, non-toxic appearance. [] HENT: Normocephalic, atraumatic, bilateral external ears normal, no trismus nose normal. [] Eyes: PERRLA, EOMI, conjunctiva normal, no discharge. [] Neck: Normal range of motion, no tenderness, supple, no stridor. [] Cardiovascular:Heart rate regular rhythm, peripheral pulses intact cap refill is brisk Lungs & Thorax: Diminished breath sounds bilaterally Abdomen: soft, no tenderness, no masses, no pulsatile masses. [] Skin: Warm, dry, no erythema, no rash. [] Back: No tenderness, no CVA tenderness. [] Extremities: No tenderness, no cyanosis, no clubbing, ROM intact, no edema. [] Neurologic: Alert and oriented X 3, normal motor function, normal sensory function, no focal deficits noted. [] Psychologic: Affect normal, judgement normal, mood normal. [] Current Patient Data: Vital Signs: Vital Signs Date Time Temp Pulse Resp B/P (MAP) Pulse Ox O2 Delivery O2 Flow Rate FiO2 04/14/20 22:30 98.4 94 16 132/86 (101) 96 Room Air 98.4 EKG: EKG: [] EKG interpreted by me normal sinus rhythm with rate 69 normal axis normal intervals normal ST segments Radiology/Procedures: Radiology/Procedures: [][facility] [address] [place] [address] IMAGING REPORT Signed PATIENT: NATE ERIC ACCOUNT: [id number] : 1975 LOCATION: ER AGE: 45 SEX: F EXAM STATUS: REG ER ORD. PHYSICIAN: CRISTO HUFF MD REASON: RIGHT SIDED CHEST PAIN, RECENT COVID, POSITIVE DDIMER PROCEDURE: CT ANGIOGRAPHY CHEST Study: CT CHEST WITH CONTRAST - PULMONARY ANGIOGRAM History: Right-sided chest pain. Positive d-dimer. COVID-19. Comparison: CT chest 01/12/2020 Technique: Helical CT of the chest performed after the administration of 100 cc Omnipaque 350 intravenous contrast and timed for angiographic evaluation of the pulmonary arteries per PE protocol. Coronal and sagittal 3D MIP reformations were obtained. One or more of the following individualized dose reduction techniques were utilized for this examination: 1. Automated exposure control 2. Adjustment of the mA and/or kV according to patient size 3. Use of iterative reconstruction technique. Findings: Pulmonary Arteries: No main, lobar or segmental pulmonary embolism. Heart/Systemic Vasculature: Nonaneurysmal aorta. The visualized great vessels are unremarkable. No CT manifestations of overt right heart strain. Mediastinum: Small hiatal hernia. Scattered granulomas. No pathologically enlarged noncalcified lymph nodes identified. Lungs: Small right pneumothorax involving approximately 10% right hemithoracic volume. Pleural-based foci at the right lung base with mineralization were present previously. Several millimetric pulmonary nodules have not significantly changed such as at the left lower lobe laterally on image 76 series 3 measuring 3.5 mm. Mild volume loss on the right. No confluent infiltrate on either side. Neck/Axilla/Body Wall: No significant interval change. Upper Abdomen: Nonobstructing 3 mm stone at the upper left kidney. Bones: No acute or aggressive osseous process. Miscellaneous: None. IMPRESSION: 1. Small right-sided pneumothorax involving approximately 10% hemithoracic volume. A pneumothorax was present on the right on the 01/12/2020 comparison but was smaller in size at that time. 2. No main, lobar or segmental pulmonary embolism. 3. Mineralized pleural-based masses at the medial right lower lung were present previously as were scattered small pulmonary nodules. No newly seen suspicious pulmonary nodule. 4. Mild right-sided volume loss. No definitive manifestations of an atypical/viral pneumonia in the setting of reported COVID-19 positivity. Electronically signed by: FREDRICK FOLEY MD (04/15/2020 1:45 AM) [id number] DICTATED and SIGNED BY: FREDRICK FOLEY MD DATE: 04/15/20 0145 [facility] [address] [place] [address] IMAGING REPORT Signed PATIENT: NATE ERIC ACCOUNT: [id number] : 1975 LOCATION: ER AGE: 45 SEX: F EXAM STATUS: REG ER ORD. PHYSICIAN: CRISTO HUFF MD REASON: SOA, RIGHT SIDED CHEST PAIN ER#[id number] PROCEDURE: PORTABLE CHEST 1V Study: CR PORTABLE CHEST 1V Indication: Shortness of air. Right-sided chest pain. Comparison: 01/14/2020 Findings: The cardiomediastinal silhouette is within normal limits for size. Unremarkable sergio. Small right pneumothorax. Slightly greater lung markings on both sides relative to the comparison. Findings at the right lung base suggestive of atelectasis. Trace blunting of the right costophrenic angle. No dense consolidation. Impression: 1. Small pneumothorax on the right appearing similar in size to be 02/03/2020 comparison. 2. Mildly increased lung markings bilaterally without a dense consolidation. Findings at the right lung base most likely on account of atelectasis. Potential trace pleural effusion on the right. Attention on the forthcoming CT. FOR INTERNAL CODING PURPOSES Critical result: Findings discussed with CRISTO HUFF on 04/15/2020 at 12:53 AM. RESULT CODE: (C) Electronically signed by: FREDRICK FOLEY MD (04/15/2020 12:53 AM) [id number] DICTATED and SIGNED BY: FREDRICK FOLEY MD DATE: 04/15/20 0053 Course & Med Decision Making: Course & Med Decision Making Pertinent Labs and Imaging studies reviewed. (See chart for details) [] 45-year-old female presents with COVID-19 and then recurrent right-sided chest pain. Patient has a history of pneumothoraces and elevated D-dimer therefore she went a CT angiogram to rule PE as well as to evaluate the size of her pneumothorax on the right. Patient has a 10% pneumothorax and has been placed on a nonrebreather. Patient will need to be admitted, I spoke with Dr. Camarena who admit. Patient does not need a chest tube at this time. Patient is otherwise stable. Patient's pain is better after medications in ER. Dragon Disclaimer: Rasta Disclaimer: This electronic medical record was generated, in whole or in part, using a voice recognition dictation system. Departure Departure Impression: Primary Impression: Spontaneous pneumothorax Additional Impressions: COVID-19 Dyspnea Disposition: ADMITTED INPT THIS HOSP Admitting Physician: Jamarcus Camarena Condition: STABLE Referrals: JAMARCUS CAMARENA MD (PCP) CRISTO HUFF MD Apr 14, 2020 22:54
[2020-04-14] MEDS ORDERED: KETOROLAC 15 MG/ML VIAL. IVP ONE (23:30)
[2020-04-14 23:42] LABS: BASO % 1 % (0-3); EOS # 0.1 x10^3/uL (0.0-0.7); EOS % 2 % (0-3); HEMATOCRIT 39.1 % (36.0-47.0); HEMOGLOBIN 13.4 g/dL (12.0-15.5); LYMPH % 47 % (24-48); MEAN CORPUSCULAR HEMOGLOBIN 29 pg (25-35); MEAN CORPUSCULAR HGB CONC 34 g/dL (31-37); MEAN CORPUSCULAR VOLUME 86 fL (79-100); MONO # 0.4 x10^3/uL (0.0-1.1); MONO % 6 % (0-9); NEUT # 2.9 x10^3/uL (1.8-7.7); NEUT % 45 % (31-73); PLATELET COUNT 253 x10^3/uL (140-400); RED BLOOD COUNT 4.56 x10^6/uL (3.50-5.40); WHITE BLOOD COUNT 6.4 x10^3/uL (4.0-11.0)
[2020-04-15 00:26] LABS: CALCIUM 8.9 mg/dL (8.5-10.1); CREATININE 0.7 mg/dL (0.6-1.0); POTASSIUM 3.4 mmol/L (3.5-5.1)
[2020-04-15 00:32] LABS: ALBUMIN 3.6 g/dL (3.4-5.0); ALBUMIN/GLOBULIN RATIO 0.9 (1.0-1.7); TOTAL BILIRUBIN 0.3 mg/dL (0.2-1.0); TOTAL PROTEIN 7.8 g/dL (6.4-8.2)
--- NOTE | 2020-04-15 00:56 | RAD ---
Study: CR PORTABLE CHEST 1V Indication: Shortness of air. Right-sided chest pain. Comparison: 01/14/2020 Findings: The cardiomediastinal silhouette is within normal limits for size. Unremarkable sergio. Small right pneumothorax. Slightly greater lung markings on both sides relative to the comparison. Findings at the right lung base suggestive of atelectasis. Trace blunting of the right costophrenic angle. No dense consolidation. Impression: 1. Small pneumothorax on the right appearing similar in size to be 02/03/2020 comparison. 2. Mildly increased lung markings bilaterally without a dense consolidation. Findings at the right lung base most likely on account of atelectasis. Potential trace pleural effusion on the right. Attention on the forthcoming CT. FOR INTERNAL CODING PURPOSES Critical result: Findings discussed with CRISTO HUFF on 04/15/2020 at 12:53 AM. RESULT CODE: (C) Electronically signed by: FREDRICK FOLEY MD (04/15/2020 12:53 AM) [id number]
[2020-04-15] MEDS ORDERED: IOHEXOL 350 MG/ML 100 ML VIAL. IV ONE (01:00)
[2020-04-15] MEDS ORDERED: CONTRAST GIVEN. MC PRN (01:00)
--- NOTE | 2020-04-15 01:48 | RAD ---
Study: CT CHEST WITH CONTRAST - PULMONARY ANGIOGRAM History: Right-sided chest pain. Positive d-dimer. COVID-19. Comparison: CT chest 01/12/2020 Technique: Helical CT of the chest performed after the administration of 100 cc Omnipaque 350 intravenous contrast and timed for angiographic evaluation of the pulmonary arteries per PE protocol. Coronal and sagittal 3D MIP reformations were obtained. One or more of the following individualized dose reduction techniques were utilized for this examination: 1. Automated exposure control 2. Adjustment of the mA and/or kV according to patient size 3. Use of iterative reconstruction technique. Findings: Pulmonary Arteries: No main, lobar or segmental pulmonary embolism. Heart/Systemic Vasculature: Nonaneurysmal aorta. The visualized great vessels are unremarkable. No CT manifestations of overt right heart strain. Mediastinum: Small hiatal hernia. Scattered granulomas. No pathologically enlarged noncalcified lymph nodes identified. Lungs: Small right pneumothorax involving approximately 10% right hemithoracic volume. Pleural-based foci at the right lung base with mineralization were present previously. Several millimetric pulmonary nodules have not significantly changed such as at the left lower lobe laterally on image 76 series 3 measuring 3.5 mm. Mild volume loss on the right. No confluent infiltrate on either side. Neck/Axilla/Body Wall: No significant interval change. Upper Abdomen: Nonobstructing 3 mm stone at the upper left kidney. Bones: No acute or aggressive osseous process. Miscellaneous: None. IMPRESSION: 1. Small right-sided pneumothorax involving approximately 10% hemithoracic volume. A pneumothorax was present on the right on the 01/12/2020 comparison but was smaller in size at that time. 2. No main, lobar or segmental pulmonary embolism. 3. Mineralized pleural-based masses at the medial right lower lung were present previously as were scattered small pulmonary nodules. No newly seen suspicious pulmonary nodule. 4. Mild right-sided volume loss. No definitive manifestations of an atypical/viral pneumonia in the setting of reported COVID-19 positivity. Electronically signed by: FREDRICK FOLEY MD (04/15/2020 1:45 AM) [id number]
[2020-04-15] MEDS ORDERED: MORPHINE SULFATE 4 MG/ML VIAL. IV ONE (02:00)
[2020-04-15] MEDS ORDERED: ONDANSETRON PF 4 MG/2 ML VIAL. IV PRN (02:00)
[2020-04-15] MEDS ORDERED: ONDANSETRON PF 4 MG/2 ML VIAL. IVP ONE (02:00)
--- NOTE | 2020-04-15 04:35 | EKG ---
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
[2020-04-15] MEDS: MORPHINE SULFATE 4 MG/ML VIAL. IV PRN ×2 (07:44→11:18)
[2020-04-15] MEDS ORDERED: ACETAMINOPHEN 325 MG TABLET. PO PRN (09:15)
--- NOTE | 2020-04-15 10:25 | PDOC ---
Provider Note Date of Service: DATE: 04/15/20 TIME: 10:24 Provider Note H&P [id number] Justifications for Admission Other Justification JAMARCUS CRISOSTOMO MD Apr 15, 2020 10:24
[2020-04-15] MEDS: PANTOPRAZOLE 40 MG TABLET.DR. PO SCH (11:17)
--- NOTE | 2020-04-15 12:31 | CONS ---
DATE OF CONSULTATION: 04/15/2020 I was asked to see this 45-year-old lady for shortness of breath, recurrent pneumothorax, acute respiratory failure. HISTORY OF PRESENT ILLNESS: She is a lifelong nonsmoker. She has history of multiple pneumothoraces. This one is her number 9 or 10. She underwent VATS pleurodesis in 2017 when she was in [place]. Then, she developed another pneumothorax, underwent talc pleurodesis by Dr. Adams in 2016. She had shortness of breath and chest pain in January of this year, presented to the Emergency Room, had a small right pneumothorax, was sent home. Ten days ago, she was diagnosed with COVID-19. She did have diarrhea and vomiting resolved now. She presented again to the Emergency Room with shortness of breath and chest pain. She had a CT of the chest done, which did show pneumothorax is bigger than the CT done in January of this year, but is still only 10%. His CT did not show pulmonary embolism. It also showed pleural based masses in the medial right lower lung, which was seen previously. No new suspicious pulmonary nodule noted. She is on 100% nonrebreather mask. She denies shortness of breath. Her oxygen saturation is 100%. She has had some cough. She denies fever or chills. PAST MEDICAL HISTORY: Multiple pneumothoraces as mentioned as above, gastroesophageal reflux disease, partial hysterectomy. ALLERGIES: No known drug allergies. SOCIAL HISTORY: She does not smoke. FAMILY HISTORY: There is no history of lung disease. MEDICATIONS: Currently, she is on morphine p.r.n. REVIEW OF SYSTEMS: As mentioned as above, other systems otherwise negative. PHYSICAL EXAMINATION: GENERAL: This is a well-developed lady. VITAL SIGNS: O2 saturation on 100% nonrebreather mask is 100%, respiratory rate 20, heart rate 62, blood pressure 116/56. HEENT: Normocephalic, atraumatic. CARDIOVASCULAR: Regular rate and rhythm. CHEST: On inspection, there are no accessory muscle use. ABDOMEN: Obese. There is no paradoxical abdominal motion. EXTREMITIES: There is no edema. SKIN: There is no rash. NEUROLOGIC: She is alert and oriented. LABORATORY DATA: CT angiogram of the chest as mentioned as above. WBC 6.4, hemoglobin 13.4, platelets 253. Sodium 140, potassium 3.4, chloride 104, CO2 of 27, BUN 10, creatinine 0.7. D-dimer 0.81. IMPRESSION: 1. Acute respiratory failure. 2. Abnormal CT of the chest. 3. Recurrent pneumothoraces. 4. Gastroesophageal reflux disease. 5. COVID-19. PLAN AND RECOMMENDATIONS: 1. Keep the patient on 100% nonrebreather mask that will help with absorption of her pneumothoraces. 2. I will do chest x-ray in the morning. Monitor her pneumothorax very closely. If her pneumothorax is significantly enlarged, she would need a chest tube placement by IR. I am sure she has multiple adhesions secondary to her VATS pleurodesis and doxycycline pleurodesis, so she should not have blind chest tube placement. 3. Start Lovenox for DVT prophylaxis. 4. Start Pepcid for stress ulcer prophylaxis. 5. Follow up COVID-19 testing. 6. The findings and recommendations were discussed with the patient and RN. I have answered all of the patient's questions. Thank you very much for allowing me to participate in care of this very nice lady. PARISH AGARWAL M.D. DR: Marie JOB#: [id number] / [id number] CAMELIA
--- NOTE | 2020-04-15 13:18 | HP ---
ADMIT DATE: 04/15/2020 HISTORY OF PRESENT ILLNESS: This 45-year-old female with a history of asthma and recurrent pneumothorax recently was diagnosed to have COVID-19 infection about 10 days ago. She has had cough that is dry. She denied any fever or chills. She had nausea, vomiting, diarrhea, but that has been improving. At the outset of the infection, I had called in Medrol Dosepak for her, but she did not take it at that time. This morning, she started having right-sided chest discomfort. Her cough has not changed. Because of the increased dyspnea and pain on the right side of the chest, the patient came to the Emergency Room. She was diagnosed to have a 10% pneumothorax in her right chest on CAT scan and it was slightly worse than her previous x-rays. She has had pneumothorax eight times and this is her ninth time. She has had pleurodesis previously. Because of the recurrent pneumothorax, the patient was admitted for further evaluation and management. REVIEW OF SYSTEMS: The patient does admit to some pain in the right chest. Denies any fever. Does have dry cough. No complaints of nausea and vomiting. Other systems reviewed and are negative. PAST MEDICAL HISTORY: History of asthma, uses inhalers occasionally, has a history of recurrent right pneumothorax, a history of endometriosis. The patient also has history of hypertension and is on lisinopril. PAST SURGICAL HISTORY: Includes VATS, hysterectomy with oophorectomy bilateral for endometriosis, has had pleurodesis x 2 for the right lung including treatment with doxycycline for pleurodesis. FAMILY HISTORY: Mother, congestive heart failure, stroke and diabetes mellitus. Father, diabetes mellitus. Brother, diabetes mellitus. SOCIAL HISTORY: No history of smoking, alcoholism or drug abuse. ALLERGIES: THE PATIENT IS ALLERGIC TO PENICILLIN. MEDICATIONS: Reviewed and reconciled. PHYSICAL EXAMINATION: GENERAL: The patient is a middle-aged female who is alert, oriented x 3 and not in acute distress. VITAL SIGNS: Temperature 98.4, pulse 94 per minute, respirations 16 per minute, blood pressure 132/86 mmHg. The patient is alert, oriented and not in acute distress. EYES: Pupils reacting to light. Conjunctivae pink. Sclerae white. HEENT: Partial exam unremarkable. She is on nonrebreathing mask with oxygen. NECK: Supple. JVP normal. No thyromegaly. LUNGS: Decreased breath sounds at bases, more in the right lung, no wheezing. CARDIOVASCULAR: S1, S2 regular. ABDOMEN: Soft, nontender, no guarding, no rigidity. Bowel sounds present. EXTREMITIES: Edema present. CENTRAL NERVOUS SYSTEM: Alert and oriented. LABORATORY FINDINGS: WBC count 6.4, hemoglobin 13.4. Sodium 140, potassium 3.4, BUN 10, creatinine 0.7, glucose 117. AST 15, ALT 27, total protein 7.8, albumin 3.6. D-dimer is 0.81. CT chest shows small right-sided pneumothorax involving approximately 10% hemithoracic volume. Compared to the films on 01/12/2020, this is slightly larger. No evidence of PE. Pleural based mass is unchanged. IMPRESSION: 1. Spontaneous right-sided pneumothorax, recurrent, this is #9. 2. Coronavirus disease-19 infection. 3. Asthma. 4. Gastroesophageal reflux disease. 5. Hypertension. PLAN: Consult Dr. Yoan Juares for pulmonary evaluation and management. I discussed the case with her and the patient may need IR to place a chest tube tomorrow if the pneumothorax gets worse. Repeat x-rays tomorrow. Otherwise, the patient is clinically stable. Continue present treatment. Restart home medications as needed. Asbestos Worker Helper is giving her high flow oxygen to see if this would help the pneumothorax. For details, please refer to the orders. JAMARCUS CRISOSTOMO MD DR: HAYES/cristian JOB#: [id number] / [id number]
[2020-04-15] MEDS: fentaNYL PF VIAL 100 MCG/2 ML VIAL IV PRN ×2 (13:21→20:40)
[2020-04-15 20:39] VITALS: BP 108/60
[2020-04-15] MEDS: ENOXAPARIN 40 MG/0.4 ML SYRINGE. SQ SCH (20:40)
[2020-04-15] MEDS: FAMOTIDINE 20 MG TABLET. PO SCH (20:40)
[2020-04-15 23:26] VITALS: BP 107/59
[2020-04-16] MEDS: fentaNYL PF VIAL 100 MCG/2 ML VIAL IV PRN ×4 (02:57→21:22)
[2020-04-16 03:04] VITALS: BP 116/60
[2020-04-16 05:19] LABS: BASO % 0 % (0-3); EOS # 0.1 x10^3/uL (0.0-0.7); EOS % 3 % (0-3); HEMATOCRIT 35.6 % (36.0-47.0); LYMPH # 1.8 x10^3/uL (1.0-4.8); LYMPH % 42 % (24-48); MEAN CORPUSCULAR HEMOGLOBIN 29 pg (25-35); MEAN CORPUSCULAR HGB CONC 34 g/dL (31-37); MEAN CORPUSCULAR VOLUME 86 fL (79-100); MONO # 0.2 x10^3/uL (0.0-1.1); MONO % 5 % (0-9); NEUT # 2.2 x10^3/uL (1.8-7.7); NEUT % 50 % (31-73); PLATELET COUNT 208 x10^3/uL (140-400); RED BLOOD COUNT 4.15 x10^6/uL (3.50-5.40); RED CELL DISTRIBUTION WIDTH 13.6 % (11.5-14.5); WHITE BLOOD COUNT 4.3 x10^3/uL (4.0-11.0)
[2020-04-16 06:08] LABS: ALBUMIN 3.2 g/dL (3.4-5.0); ALBUMIN/GLOBULIN RATIO 0.9 (1.0-1.7); CALCIUM 8.6 mg/dL (8.5-10.1); CREATININE 0.7 mg/dL (0.6-1.0); POTASSIUM 3.8 mmol/L (3.5-5.1); TOTAL BILIRUBIN 0.3 mg/dL (0.2-1.0); TOTAL PROTEIN 6.8 g/dL (6.4-8.2)
--- NOTE | 2020-04-16 06:57 | PDOC ---
IM PROGRESS NOTES- Subjective Subjective Has right-sided chest pain. Requiring IV fentanyl. Morphine was not helping. Objective Vitals/I&O Vital Signs Date Time Temp Pulse Resp B/P (MAP) Pulse Ox O2 Delivery O2 Flow Rate FiO2 04/16/20 03:27 Nasal Cannula 04/16/20 03:04 97.8 68 14 116/60 (78) 99 2.0 97.8 I & O 04/15/20 04/15/20 04/16/20 15:00 23:00 07:00 Intake Total 480 ml Balance 480 ml Physical Exam Physical Exam General appearance -sleepy,ill appearing, and in no distress and oriented to person, place, and time Mental Status -sleepy Chest -decreased breath sounds worse on the right side. Heart - S1 and S2 normal Abdomen - soft, non tender Extremities - no pedal edema Labs Laboratory Tests Test 04/16/20 04:45 White Blood Count 4.3 x10^3/uL (4.0-11.0) Red Blood Count 4.15 x10^6/uL (3.50-5.40) Hemoglobin 12.0 g/dL (12.0-15.5) Hematocrit 35.6 % (36.0-47.0) L Mean Corpuscular Volume 86 fL (79-100) Mean Corpuscular Hemoglobin 29 pg (25-35) Mean Corpuscular Hemoglobin Concent 34 g/dL (31-37) Red Cell Distribution Width 13.6 % (11.5-14.5) Platelet Count 208 x10^3/uL (140-400) Neutrophils (%) (Auto) 50 % (31-73) Lymphocytes (%) (Auto) 42 % (24-48) Monocytes (%) (Auto) 5 % (0-9) Eosinophils (%) (Auto) 3 % (0-3) Basophils (%) (Auto) 0 % (0-3) Neutrophils # (Auto) 2.2 x10^3/uL (1.8-7.7) Lymphocytes # (Auto) 1.8 x10^3/uL (1.0-4.8) Monocytes # (Auto) 0.2 x10^3/uL (0.0-1.1) Eosinophils # (Auto) 0.1 x10^3/uL (0.0-0.7) Basophils # (Auto) 0.0 x10^3/uL (0.0-0.2) Sodium Level 138 mmol/L (136-145) Potassium Level 3.8 mmol/L (3.5-5.1) Chloride Level 103 mmol/L (98-107) Carbon Dioxide Level 26 mmol/L (21-32) Anion Gap 9 (6-14) Blood Urea Nitrogen 17 mg/dL (7-20) Creatinine 0.7 mg/dL (0.6-1.0) Estimated GFR (Cockcroft-Gault) 110.0 BUN/Creatinine Ratio 24 (6-20) H Glucose Level 125 mg/dL (70-99) H Calcium Level 8.6 mg/dL (8.5-10.1) Total Bilirubin 0.3 mg/dL (0.2-1.0) Aspartate Amino Transferase (AST) 16 U/L (15-37) Alanine Aminotransferase (ALT) 25 U/L (14-59) Alkaline Phosphatase 37 U/L (46-116) L Total Protein 6.8 g/dL (6.4-8.2) Albumin 3.2 g/dL (3.4-5.0) L Albumin/Globulin Ratio 0.9 (1.0-1.7) L Laboratory Tests 04/16/20 04:45 Laboratory Tests 04/16/20 04:45 Meds Current Medications Medications (Trade) Dose Ordered Sig/Ollie Route PRN Reason Start Time Stop Time Status Last Admin Dose Admin Enoxaparin Sodium (Lovenox 40mg Syringe) 40 mg Q24H SQ 04/15/20 21:00 04/15/20 20:40 Famotidine (Pepcid) 20 mg BID PO 04/15/20 21:00 04/15/20 20:40 Pantoprazole Sodium (Protonix) 40 mg DAILYAC PO 04/15/20 10:15 04/15/20 11:17 Fentanyl Citrate (Fentanyl 2ml Vial) 50 mcg PRN Q3HRS PRN IV PAIN 04/15/20 13:15 04/16/20 02:57 Assessment Assessment 1. Spontaneous right-sided pneumothorax, recurrent, this is #9. 2. Coronavirus disease-19 infection. 3. Asthma. 4. Gastroesophageal reflux disease. 5. Hypertension. PLAN: Consult Dr. Montee Tannaz for pulmonary evaluation and management. I discussed the case with her and the patient may need IR to place a chest tube tomorrow if the pneumothorax gets worse. Repeat x-rays tomorrow. Otherwise, the patient is clinically stable. Continue present treatment. Restart home medications as needed. Farmworker General is giving her high flow oxygen to see if this would help the pneumothorax. For details, please refer to the orders. Continue IV fentanyl for pain management. Hypokalemia-better. Plan Plan For more details regarding further plans, please refer to the orders. Justifications for Admission Other Justification JAMARCUS CRISOSTOMO MD Apr 16, 2020 06:56
[2020-04-16 07:00] VITALS: BP 101/59
--- NOTE | 2020-04-16 08:29 | PDOC ---
PULMONARY PROGRESS NOTES DATE: 04/16/20 TIME: 08:29 Subjective Patient feels about the same some chest discomfort not more short of air Vitals Vital Signs Date Time Temp Pulse Resp B/P (MAP) Pulse Ox O2 Delivery O2 Flow Rate FiO2 04/16/20 03:27 Nasal Cannula 04/16/20 03:04 97.8 68 14 116/60 (78) 99 2.0 97.8 Comments Patient seen doing the pandemic, on visual examination no paroxysmal breathing pattern patient not utilizing accessory muscles no increasing pedal edema ROS: No Nausea, No Abdominal Pain, No Increase Cough Labs Laboratory Tests Test 04/14/20 23:30 04/15/20 00:05 04/16/20 04:45 White Blood Count 6.4 x10^3/uL (4.0-11.0) 4.3 x10^3/uL (4.0-11.0) Red Blood Count 4.56 x10^6/uL (3.50-5.40) 4.15 x10^6/uL (3.50-5.40) Hemoglobin 13.4 g/dL (12.0-15.5) 12.0 g/dL (12.0-15.5) Hematocrit 39.1 % (36.0-47.0) 35.6 % (36.0-47.0) Mean Corpuscular Volume 86 fL (79-100) 86 fL (79-100) Mean Corpuscular Hemoglobin 29 pg (25-35) 29 pg (25-35) Mean Corpuscular Hemoglobin Concent 34 g/dL (31-37) 34 g/dL (31-37) Red Cell Distribution Width 14.0 % (11.5-14.5) 13.6 % (11.5-14.5) Platelet Count 253 x10^3/uL (140-400) 208 x10^3/uL (140-400) Neutrophils (%) (Auto) 45 % (31-73) 50 % (31-73) Lymphocytes (%) (Auto) 47 % (24-48) 42 % (24-48) Monocytes (%) (Auto) 6 % (0-9) 5 % (0-9) Eosinophils (%) (Auto) 2 % (0-3) 3 % (0-3) Basophils (%) (Auto) 1 % (0-3) 0 % (0-3) Neutrophils # (Auto) 2.9 x10^3/uL (1.8-7.7) 2.2 x10^3/uL (1.8-7.7) Lymphocytes # (Auto) 3.0 x10^3/uL (1.0-4.8) 1.8 x10^3/uL (1.0-4.8) Monocytes # (Auto) 0.4 x10^3/uL (0.0-1.1) 0.2 x10^3/uL (0.0-1.1) Eosinophils # (Auto) 0.1 x10^3/uL (0.0-0.7) 0.1 x10^3/uL (0.0-0.7) Basophils # (Auto) 0.0 x10^3/uL (0.0-0.2) 0.0 x10^3/uL (0.0-0.2) D-Dimer (Madsion) 0.81 ug/mlFEU (0.00-0.50) Maternal Serum HCG Beta Subunit 2 mIU/mL (0-5) Sodium Level 140 mmol/L (136-145) 138 mmol/L (136-145) Potassium Level 3.4 mmol/L (3.5-5.1) 3.8 mmol/L (3.5-5.1) Chloride Level 104 mmol/L (98-107) 103 mmol/L (98-107) Carbon Dioxide Level 27 mmol/L (21-32) 26 mmol/L (21-32) Anion Gap 9 (6-14) 9 (6-14) Blood Urea Nitrogen 10 mg/dL (7-20) 17 mg/dL (7-20) Creatinine 0.7 mg/dL (0.6-1.0) 0.7 mg/dL (0.6-1.0) Estimated GFR (Cockcroft-Gault) 110.0 110.0 BUN/Creatinine Ratio 14 (6-20) 24 (6-20) Glucose Level 117 mg/dL (70-99) 125 mg/dL (70-99) Calcium Level 8.9 mg/dL (8.5-10.1) 8.6 mg/dL (8.5-10.1) Total Bilirubin 0.3 mg/dL (0.2-1.0) 0.3 mg/dL (0.2-1.0) Aspartate Amino Transf (AST/SGOT) 15 U/L (15-37) 16 U/L (15-37) Alanine Aminotransferase (ALT/SGPT) 27 U/L (14-59) 25 U/L (14-59) Alkaline Phosphatase 36 U/L (46-116) 37 U/L (46-116) Creatine Kinase 66 U/L (26-192) Total Protein 7.8 g/dL (6.4-8.2) 6.8 g/dL (6.4-8.2) Albumin 3.6 g/dL (3.4-5.0) 3.2 g/dL (3.4-5.0) Albumin/Globulin Ratio 0.9 (1.0-1.7) 0.9 (1.0-1.7) Laboratory Tests Test 04/16/20 04:45 White Blood Count 4.3 x10^3/uL (4.0-11.0) Red Blood Count 4.15 x10^6/uL (3.50-5.40) Hemoglobin 12.0 g/dL (12.0-15.5) Hematocrit 35.6 % (36.0-47.0) Mean Corpuscular Volume 86 fL (79-100) Mean Corpuscular Hemoglobin 29 pg (25-35) Mean Corpuscular Hemoglobin Concent 34 g/dL (31-37) Red Cell Distribution Width 13.6 % (11.5-14.5) Platelet Count 208 x10^3/uL (140-400) Neutrophils (%) (Auto) 50 % (31-73) Lymphocytes (%) (Auto) 42 % (24-48) Monocytes (%) (Auto) 5 % (0-9) Eosinophils (%) (Auto) 3 % (0-3) Basophils (%) (Auto) 0 % (0-3) Neutrophils # (Auto) 2.2 x10^3/uL (1.8-7.7) Lymphocytes # (Auto) 1.8 x10^3/uL (1.0-4.8) Monocytes # (Auto) 0.2 x10^3/uL (0.0-1.1) Eosinophils # (Auto) 0.1 x10^3/uL (0.0-0.7) Basophils # (Auto) 0.0 x10^3/uL (0.0-0.2) Sodium Level 138 mmol/L (136-145) Potassium Level 3.8 mmol/L (3.5-5.1) Chloride Level 103 mmol/L (98-107) Carbon Dioxide Level 26 mmol/L (21-32) Anion Gap 9 (6-14) Blood Urea Nitrogen 17 mg/dL (7-20) Creatinine 0.7 mg/dL (0.6-1.0) Estimated GFR (Cockcroft-Gault) 110.0 BUN/Creatinine Ratio 24 (6-20) Glucose Level 125 mg/dL (70-99) Calcium Level 8.6 mg/dL (8.5-10.1) Total Bilirubin 0.3 mg/dL (0.2-1.0) Aspartate Amino Transf (AST/SGOT) 16 U/L (15-37) Alanine Aminotransferase (ALT/SGPT) 25 U/L (14-59) Alkaline Phosphatase 37 U/L (46-116) Total Protein 6.8 g/dL (6.4-8.2) Albumin 3.2 g/dL (3.4-5.0) Albumin/Globulin Ratio 0.9 (1.0-1.7) Medications Active Scripts Medications Dose Route/Sig Max Daily Dose Days Date Category [place] 5-325 Tablet (Acetaminophen/Hydrocodone Bitart) 1 Each Tablet 1 Tab PO PRN Q6HRS PRN 06/01/19 Rx Cyclobenzaprine Hcl 10 Mg Tablet 1 Tab PO TID 06/01/19 Rx Senna-Time S Tablet (Sennosides/Docusate Sodium) 1 Each Tablet 2 Tab PO DAILY 30 02/06/17 Rx Oxycodone Hcl Immed.release (Oxycodone Hcl) 5 Mg Tablet 10 Mg PO PRN Q4HRS PRN 5 02/06/17 Rx Famotidine 40 Mg Tablet 40 Mg PO HS 02/01/17 Reported Impression . IMPRESSION: 1. Acute respiratory failure. 2. Abnormal CT of the chest., Revealing small pneumothorax 3. Recurrent pneumothoraces. 4. Gastroesophageal reflux disease. 5. COVID-19. Tested positive approximately 10 days ago Plan . Continue oxygen supplementation Today's chest x-ray was reviewed there is slight increase in pneumothorax specifically at the lower base Patient not more short of air we will continue monitoring DVT prophylaxis GERRY PANDYA MD Apr 16, 2020 08:29
[2020-04-16] MEDS: FAMOTIDINE 20 MG TABLET. PO SCH ×2 (09:03→21:13)
[2020-04-16] MEDS: PANTOPRAZOLE 40 MG TABLET.DR. PO SCH (09:03)
--- NOTE | 2020-04-16 09:38 | RAD ---
EXAM: CHEST AP ONLY INDICATION: Reason: fu ptx / Spl. Instructions: / History: . TECHNIQUE: Single view COMPARISON: 04/14/2020 chest x-ray, CT chest 04/15/2020 with IV contrast FINDINGS: The heart size is normal. The great vessels appear unremarkable. Calcified right hilar lymph nodes are redemonstrated. Lungs show minimal atelectatic changes at the left lung base. Platelike atelectasis at the right lung base is new. No pleural effusion is apparent but a moderate right pneumothorax remains present measuring 1.8 cm at the right lung apex with more air apparent underneath the right lower lobe, above the diaphragm. There are no significant osseous abnormalities. IMPRESSION: Possible slight increase in right-sided pneumothorax without evidence of tension. Report telephoned to the inpatient floor where the patient's nurse Keren took the report at 9:35 AM on 04/16/2020. Electronically signed by: Cristo Ho MD (04/16/2020 9:35 AM) [id number]
[2020-04-16] MEDS: HYDROcodone/APAP 7.5/325MG 1 TAB TABLET PO PRN (15:40)
[2020-04-16] MEDS: ONDANSETRON PF 4 MG/2 ML VIAL. IVP PRN (15:43)
--- NOTE | 2020-04-16 17:15 | NUR ---
SW following for discharge planning. Spoke with RN and reviewed chart. Pt from home. Pt on room air, oral medications, regular diet, COVID positive. Pt to discharge home self-care, when stable. No anticipated SW needs at discharge. SW available as needed.
[2020-04-16 19:00] VITALS: BP 117/78
[2020-04-16] MEDS: ENOXAPARIN 40 MG/0.4 ML SYRINGE. SQ SCH (21:14)
[2020-04-16 23:00] VITALS: BP 101/60
[2020-04-17 03:00] VITALS: BP 114/56
[2020-04-17] MEDS: ONDANSETRON PF 4 MG/2 ML VIAL. IVP PRN ×3 (04:36→17:07)
[2020-04-17] MEDS: fentaNYL PF VIAL 100 MCG/2 ML VIAL IV PRN ×2 (04:36→20:50)
[2020-04-17 07:00] VITALS: BP 109/65
--- NOTE | 2020-04-17 08:23 | PDOC ---
PULMONARY PROGRESS NOTES DATE: 04/17/20 TIME: 08:23 Subjective Patient feels better, not more short of air. Vitals Vital Signs Date Time Temp Pulse Resp B/P (MAP) Pulse Ox O2 Delivery O2 Flow Rate FiO2 04/17/20 07:00 97.9 81 17 109/65 (80) 97 Room Air 97.9 04/17/20 04:36 2.0 Comments Patient seen doing the , on visual examination no paroxysmal breathing pattern patient not utilizing accessory muscles no increasing pedal edema ROS: No Nausea, No Abdominal Pain, No Increase Cough Labs Laboratory Tests Test 04/16/20 04:45 White Blood Count 4.3 x10^3/uL (4.0-11.0) Red Blood Count 4.15 x10^6/uL (3.50-5.40) Hemoglobin 12.0 g/dL (12.0-15.5) Hematocrit 35.6 % (36.0-47.0) Mean Corpuscular Volume 86 fL (79-100) Mean Corpuscular Hemoglobin 29 pg (25-35) Mean Corpuscular Hemoglobin Concent 34 g/dL (31-37) Red Cell Distribution Width 13.6 % (11.5-14.5) Platelet Count 208 x10^3/uL (140-400) Neutrophils (%) (Auto) 50 % (31-73) Lymphocytes (%) (Auto) 42 % (24-48) Monocytes (%) (Auto) 5 % (0-9) Eosinophils (%) (Auto) 3 % (0-3) Basophils (%) (Auto) 0 % (0-3) Neutrophils # (Auto) 2.2 x10^3/uL (1.8-7.7) Lymphocytes # (Auto) 1.8 x10^3/uL (1.0-4.8) Monocytes # (Auto) 0.2 x10^3/uL (0.0-1.1) Eosinophils # (Auto) 0.1 x10^3/uL (0.0-0.7) Basophils # (Auto) 0.0 x10^3/uL (0.0-0.2) Sodium Level 138 mmol/L (136-145) Potassium Level 3.8 mmol/L (3.5-5.1) Chloride Level 103 mmol/L (98-107) Carbon Dioxide Level 26 mmol/L (21-32) Anion Gap 9 (6-14) Blood Urea Nitrogen 17 mg/dL (7-20) Creatinine 0.7 mg/dL (0.6-1.0) Estimated GFR (Cockcroft-Gault) 110.0 BUN/Creatinine Ratio 24 (6-20) Glucose Level 125 mg/dL (70-99) Calcium Level 8.6 mg/dL (8.5-10.1) Total Bilirubin 0.3 mg/dL (0.2-1.0) Aspartate Amino Transf (AST/SGOT) 16 U/L (15-37) Alanine Aminotransferase (ALT/SGPT) 25 U/L (14-59) Alkaline Phosphatase 37 U/L (46-116) Total Protein 6.8 g/dL (6.4-8.2) Albumin 3.2 g/dL (3.4-5.0) Albumin/Globulin Ratio 0.9 (1.0-1.7) Medications Active Scripts Medications Dose Route/Sig Max Daily Dose Days Date Category [place] 5-325 Tablet (Acetaminophen/Hydrocodone Bitart) 1 Each Tablet 1 Tab PO PRN Q6HRS PRN 06/01/19 Rx Cyclobenzaprine Hcl 10 Mg Tablet 1 Tab PO TID 06/01/19 Rx Senna-Time S Tablet (Sennosides/Docusate Sodium) 1 Each Tablet 2 Tab PO DAILY 30 02/06/17 Rx Oxycodone Hcl Immed.release (Oxycodone Hcl) 5 Mg Tablet 10 Mg PO PRN Q4HRS PRN 5 02/06/17 Rx Famotidine 40 Mg Tablet 40 Mg PO HS 02/01/17 Reported Impression . IMPRESSION: 1. Acute respiratory failure. 2. Abnormal CT of the chest., Revealing small pneumothorax 3. Recurrent pneumothoraces. 4. Gastroesophageal reflux disease. 5. COVID-19. Tested positive approximately 10 days ago Plan . Repeat chest x-ray. If no change on chest x-ray today in the a.m. patient discharged home Continue oxygen supplementation Patient not more short of air we will continue monitoring DVT prophylaxis GERRY PANDYA MD Apr 17, 2020 08:23
[2020-04-17] MEDS: FAMOTIDINE 20 MG TABLET. PO SCH ×2 (08:44→20:40)
[2020-04-17] MEDS: PANTOPRAZOLE 40 MG TABLET.DR. PO SCH (08:44)
[2020-04-17] MEDS: HYDROcodone/APAP 7.5/325MG 1 TAB TABLET PO PRN ×2 (08:45→15:42)
--- NOTE | 2020-04-17 09:22 | PDOC ---
IM PROGRESS NOTES- Subjective Subjective Has right-sided chest pain. Requiring IV fentanyl. Morphine was not helping. Objective Vitals/I&O Vital Signs Date Time Temp Pulse Resp B/P (MAP) Pulse Ox O2 Delivery O2 Flow Rate FiO2 04/17/20 08:45 Room Air 04/17/20 07:00 97.9 81 17 109/65 (80) 97 97.9 04/17/20 04:36 2.0 I & O 04/16/20 04/16/20 04/17/20 15:00 23:00 07:00 Intake Total 500 ml 400 ml Output Total 0 ml Balance 500 ml 400 ml Physical Exam Physical Exam General appearance -alert,ill appearing, and in no distress and oriented to person, place, and time Mental Status -sleepy Chest -decreased breath sounds worse on the right side. Heart - S1 and S2 normal Abdomen - soft, non tender Extremities - no pedal edema Meds Current Medications Medications (Trade) Dose Ordered Sig/Ollie Route PRN Reason Start Time Stop Time Status Last Admin Dose Admin Acetaminophen/ Hydrocodone Bitart (Lortab 7.5/325) 1 tab PRN Q6HRS PRN PO MODERATE-SEVERE PAIN 04/16/20 14:45 04/17/20 08:45 Ondansetron HCl (Zofran) 4 mg PRN Q6HRS PRN IVP NAUSEA/VOMITING 04/16/20 15:45 04/17/20 08:57 Assessment Assessment 1. Spontaneous right-sided pneumothorax, recurrent, this is #9. 2. Coronavirus disease-19 infection. 3. Asthma. 4. Gastroesophageal reflux disease. 5. Hypertension. PLAN: Consult Dr. Yoan Juares for pulmonary evaluation and management. I discussed the case with her and the patient may need IR to place a chest tube tomorrow if the pneumothorax gets worse. Repeat x-rays tomorrow. Otherwise, the patient is clinically stable. Continue present treatment. Restart home medications as needed. Retail Area Manager is giving her high flow oxygen to see if this would help the pneumothorax. For details, please refer to the orders. Continue IV fentanyl for pain management. Hypokalemia-better. Recurrent right pneumothorax-chest x-ray yesterday showed slight increase in pneumothorax but patient is not more short of breath. Continue observation. Clinically slowly improving. Continue hydrocodone and fentanyl for pain control. Plan Plan For more details regarding further plans, please refer to the orders. Justifications for Admission Other Justification JAMARCUS CRISOSTOMO MD Apr 17, 2020 09:22
[2020-04-17 11:00] VITALS: BP 111/60
--- NOTE | 2020-04-17 11:21 | NUR ---
SW following for discharge planning. Spoke with RN and reviewed chart. Pt remains on room air, oral medications, regular diet, COVID positive. Discharge plan remains home, self-care. SW attempted to call into pt's room, no answer. No anticipated SW needs at discharge. SW available as needed.
[2020-04-17 15:00] VITALS: BP 90/60
--- NOTE | 2020-04-17 15:26 | RAD ---
PORTABLE CHEST 1V Clinical Indication: Reason: ptx Comparison: AP chest, prior day. Findings: The cardiomediastinal silhouette is normal. Right pneumothorax is mildly larger. Pleural separation at the apex has increased and there is a component right inferior lateral. Basilar right lung consolidation is unchanged. There is new linear opacity in the right upper lung. No pleural effusion is appreciated. No acute bone abnormality. IMPRESSION: 1. Right pneumothorax is mildly larger. 2. There is new linear opacity in the right upper lung. Right basilar opacity is unchanged. Electronically signed by: Mark Anthony MD (04/17/2020 3:23 PM) [id number]
[2020-04-17 19:00] VITALS: BP 130/63
[2020-04-17] MEDS: ENOXAPARIN 40 MG/0.4 ML SYRINGE. SQ SCH (20:41)
[2020-04-17 23:00] VITALS: BP 125/64
[2020-04-18] MEDS: HYDROcodone/APAP 7.5/325MG 1 TAB TABLET PO PRN ×3 (01:00→15:49)
[2020-04-18] MEDS: ONDANSETRON PF 4 MG/2 ML VIAL. IVP PRN (01:00)
[2020-04-18] MEDS: BENZONATATE 100 MG CAPSULE. PO PRN ×3 (01:00→15:46)
[2020-04-18 03:00] VITALS: BP_SYST 122; BP_SYST 176; BP_DIAS 68; BP_DIAS 77
[2020-04-18 07:00] VITALS: BP 111/58
[2020-04-18] MEDS: PANTOPRAZOLE 40 MG TABLET.DR. PO SCH (07:50)
[2020-04-18 08:33] VITALS: BP 111/58
[2020-04-18] MEDS: FAMOTIDINE 20 MG TABLET. PO SCH (08:52)
[2020-04-18] MEDS ORDERED: HYDR-2765 PO (09:01)
[2020-04-18] MEDS ORDERED: BENZ-8 PO (09:01)
--- NOTE | 2020-04-18 09:02 | DISCH ---
DISCHARGE INSTRUCTIONS Condition on Discharge Condition on Discharge: Stable Activity After Discharge Activity Instructions for Disc: Activity as tolerated Diet after Discharge Diet after Discharge: Regular Contacting the DRLianne after DC Call your doctor for: Concerns you may have Follow-Up Follow up with: Dr. Jamarcus Crisostomo in 5 days Follow Up With: Treatment/Equipment after DC Adaptive Equipment Issued: None JAMARCUS CRISOSTOMO MD Apr 18, 2020 09:02
--- NOTE | 2020-04-18 09:21 | PDOC ---
PULMONARY PROGRESS NOTES DATE: 04/18/20 TIME: 09:21 Subjective Patient feels about the same, Remains on 2 L nasal cannula Vitals Vital Signs Date Time Temp Pulse Resp B/P (MAP) Pulse Ox O2 Delivery O2 Flow Rate FiO2 04/18/20 08:33 96.9 60 18 111/58 (75) 97 Nasal Cannula 2.0 96.9 Comments Patient seen doing the COVID-19 pandemic, on visual examination no paroxysmal breathing pattern patient not utilizing accessory muscles no increasing pedal edema ROS: No Nausea, No Abdominal Pain, No Increase Cough Medications Active Scripts Medications Dose Route/Sig Max Daily Dose Days Date Category [place] 5-325 Tablet (Acetaminophen/Hydrocodone Bitart) 1 Each Tablet 1 Tab PO PRN Q6HRS PRN 06/01/19 Rx Cyclobenzaprine Hcl 10 Mg Tablet 1 Tab PO TID 06/01/19 Rx Senna-Time S Tablet (Sennosides/Docusate Sodium) 1 Each Tablet 2 Tab PO DAILY 30 02/06/17 Rx Oxycodone Hcl Immed.release (Oxycodone Hcl) 5 Mg Tablet 10 Mg PO PRN Q4HRS PRN 5 02/06/17 Rx Famotidine 40 Mg Tablet 40 Mg PO HS 02/01/17 Reported Impression . IMPRESSION: 1. Acute respiratory failure. 2. Abnormal CT of the chest., Revealing small pneumothorax 3. Recurrent pneumothoraces. 4. Gastroesophageal reflux disease. 5. COVID-19. Tested positive approximately 10 days ago Plan . I reviewed the x-ray no significant change from yesterday, I think it safe to discharge home, patient to follow-up with me next Thursday on the 3:30 PM I will obtain a chest x-ray prior to her coming to my office Discussed with GERRY BEST MD Apr 18, 2020 09:21
--- NOTE | 2020-04-18 09:25 | PDOC ---
IM PROGRESS NOTES- Subjective Subjective Has right-sided chest pain. Requiring IV fentanyl. Morphine was not helping. Cough is getting worse. Objective Vitals/I&O Vital Signs Date Time Temp Pulse Resp B/P (MAP) Pulse Ox O2 Delivery O2 Flow Rate FiO2 04/18/20 08:33 96.9 60 18 111/58 (75) 97 Nasal Cannula 2.0 96.9 I & O 04/17/20 04/17/20 04/18/20 15:00 23:00 07:00 Intake Total 400 ml 300 ml Output Total 0 ml Balance 400 ml 300 ml Physical Exam Physical Exam General appearance -alert,ill appearing, and in no distress and oriented to person, place, and time Mental Status -sleepy Chest -decreased breath sounds worse on the right side. Heart - S1 and S2 normal Abdomen - soft, non tender Extremities - no pedal edema Meds Current Medications Medications (Trade) Dose Ordered Sig/Ollie Route PRN Reason Start Time Stop Time Status Last Admin Dose Admin Benzonatate (Tessalon Perle) 100 mg PRN TID PRN PO COUGH 1ST CHOICE 04/18/20 00:30 04/18/20 08:52 Assessment Assessment 1. Spontaneous right-sided pneumothorax, recurrent, this is #9. 2. Coronavirus disease-19 infection. 3. Asthma. 4. Gastroesophageal reflux disease. 5. Hypertension. PLAN: Consult Dr. Yoan Juares for pulmonary evaluation and management. I discussed the case with her and the patient may need IR to place a chest tube tomorrow if the pneumothorax gets worse. Repeat x-rays tomorrow. Otherwise, the patient is clinically stable. Continue present treatment. Restart home medications as needed. [employer] Maker is giving her high flow oxygen to see if this would help the pneumothorax. For details, please refer to the orders. Continue IV fentanyl for pain management. Hypokalemia-better. Recurrent right pneumothorax-chest x-ray yesterday showed increase in pneumothorax . She has been coughing a lot. Started on Tessalon Perles. Continue hydrocodone and fentanyl for pain control. Follow-up chest x-ray this morning Plan Plan For more details regarding further plans, please refer to the orders. Justifications for Admission Other Justification JAMARCUS CRISOSTOMO MD Apr 18, 2020 09:25
--- NOTE | 2020-04-18 10:37 | RAD ---
Single view of the chest. 04/18/2020 9:00 AM Indication: Reason: PNEUMOTHORAX / Spl. Instructions: / History: Comparison: Chest radiograph, yesterday Findings: Overall the right-sided pneumothorax is grossly similar. Areas of right lung consolidation/atelectasis are similar Left lung is grossly clear. Heart size is normal. No acute osseous changes are noted in the interim. IMPRESSION: Grossly similar radiographic appearance of the chest with respect to yesterday's study. Electronically signed by: Pedro Rascon MD (04/18/2020 10:34 AM) [id number]
[2020-04-18 11:00] VITALS: BP 113/61
[2020-04-18 14:56] VITALS: BP 134/64
--- NOTE | 2020-04-18 15:58 | NUR ---
SW following for discharge planning. Spoke with RN and reviewed chart. Pt now on . Pt remains on IV pain medications. SW following. Addendum: 04/19/20 at 1015 by BETINA SOTO SW Pt discharged home, self-care on room air. No further SW needs at this time.
--- NOTE | 2020-04-18 17:01 | NUR ---
Pt left unit at 1700 by ambulation via private vehicle. IV removed with no complications, VSS. Discharge paperwork and follow-up discussed with pt. Additional concerns addressed.
--- NOTE | 2020-04-19 09:25 | PDOC3 ---
IM DISCHARGE SUMMARY Date of Admission Date of Admission Date of Admission: Apr 15, 2020 at 02:04 Date of Discharge Date of Discharge April 18, 2020 Primary Diagnosis Primary Diagnosis 1. Spontaneous right-sided pneumothorax, recurrent, this is #9. 2. Coronavirus disease-19 infection. 3. Asthma. 4. Gastroesophageal reflux disease. 5. Hypertension. Consults Consults Flash Willis MD; Blanquita Milton MD Brief hospital course Brief hospital course This 45-year-old female with a history of asthma and recurrent pneumothorax recently was diagnosed to have COVID-19 infection about 10 days ago. She has had cough that is dry. She denied any fever or chills. She had nausea, vomiting, diarrhea, but that has been improving. At the outset of the infection, I had called in Medrol Dosepak for her, but she did not take it at that time. This morning, she started having right-sided chest discomfort. Her cough has not changed. Because of the increased dyspnea and pain on the right side of the chest, the patient came to the Emergency Room. She was diagnosed to have a 10% pneumothorax in her right chest on CAT scan and it was slightly worse than her previous x-rays. She has had pneumothorax eight times and this is her ninth time. She has had pleurodesis previously. Because of the recurrent pneumothorax, the patient was admitted for further evaluation and management. For more details regarding the past history, family history, social history, surgical history and other details, please refer to History and Physical. Consult Dr. Yoan Juares for pulmonary evaluation and management. I discussed the case with her and the patient may need IR to place a chest tube tomorrow if the pneumothorax gets worse. Repeat x-rays tomorrow. Otherwise, the patient is clinically stable. Continue present treatment. Restart home medications as needed. Bin Filler is giving her high flow oxygen to see if this would help the pneumothorax. For details, please refer to the orders. Continue IV fentanyl for pain management. Hypokalemia-better. Recurrent right pneumothorax-chest x-ray yesterday showed increase in p neumothorax . She has been coughing a lot. Started on Tessalon Perles. Continue hydrocodone and fentanyl for pain control. Follow-up chest x-ray showed stable pneumothorax. Patient was discharged home. Patient did not need chest tube placed. Medications Medications reviewed and reconciled for discharge. Allergy Allergies Coded Allergies Type Severity Reaction Last Updated Verified Penicillins Allergy Intermediate "Swells" 11/04/13 Yes Follow up Follow-up with me in 5 days. Follow-up with Dr. Adams. DISPOSITION: Home Comments Discharge Management - 35 minutes. For other details please refer to discharge instructions Justicifation of Admission Dx: Justifications for Admission: Justification of Admission Dx: Yes JAMARCUS CRISOSTOMO MD Apr 19, 2020 09:25
== END 2020-04-18 16:58 | disposition home or self-care (01) | DRG 199 ==
LOC: ER 20:23 → ED HOLD 04-15 02:04 → 6 SOUTH 04-15 03:04
PROVIDERS: ADMIT Internal Medicine; ATTEND Internal Medicine
DX: J93.83 Other pneumothorax (principal); U07.1 COVID-19; J96.00 Acute respiratory failure, unspecified whether with hypoxia or hypercapnia; J98.11 Atelectasis; E87.6 Hypokalemia; I10 Essential (primary) hypertension; J45.909 Unspecified asthma, uncomplicated; K21.9 Gastro-esophageal reflux disease without esophagitis; Z90.711 Acquired absence of uterus with remaining cervical stump; Z88.0 Allergy status to penicillin; Z83.3 Family history of diabetes mellitus; Z82.49 Family history of ischemic heart disease and other diseases of the circulatory system; Z82.3 Family history of stroke
CPT/HCPCS: 36415; 71045; 71275; 80053; 82550; 84702; 85025; 85379; 93005; 96374; 96375; J1650; J1885; J2270; J2405; J3010; Q9967; 99285-25; G0378

== ENCOUNTER → 2020-04-24 | Outpatient (CLI) | payer BC ==
[2020-04-18 14:56] VITALS: BP 134/64
[~2020-04-24] MED LIST changes: +BENZ-8 PO; +BUDE10.22 IH; +HYDR-2765 PO; +LISI10TA2 PO
--- NOTE | 2020-04-24 16:05 | KCIC ---
INDICATION: Follow-up of pneumothorax COMPARISON: April 18, 2020 FINDINGS: Single view of chest obtained. Cardiac silhouette is similar to prior. Repeat demonstration of a right-sided pneumothorax with both apical as well as basilar component. Appears moderate in size. Focal opacity within the right lower lung is again seen. IMPRESSION: * Repeat demonstration of a right-sided pneumothorax with both basilar as well as apical component. This appears moderate in size and increased from prior. Report called to the ordering provider's office at 3:55 PM on date of exam. * Focal opacity within the right lung base again seen and could be from atelectasis or infiltrate. Electronically signed by: Derrell Sung MD (04/24/2020 4:02 PM) [id number]
== END ==
LOC: KCIC 11:34
PROVIDERS: ATTEND Internal Medicine Pulmonary Disease
DX: R07.9 Chest pain, unspecified (principal); M43.14 Spondylolisthesis, thoracic region; R06.02 Shortness of breath
CPT/HCPCS: 71046

== ENCOUNTER 2020-04-26 12:14 | Outpatient (CLI) | payer BC ==
[~2020-04-26] VITALS: Ht 167.6 cm; Wt 80.7 kg
[2020-04-26] VITALS (15 sets, daily range): BP systolic 105–143; BP diastolic 54–99
[~2020-04-26 12:14] MED LIST changes: -BUDE10.22 IH; -LISI10TA2 PO
[2020-04-26] MEDS ORDERED: LIDOCAINE WITH 8.4% SOD BICARB 3 ML DISP.SYRIN. ONE (12:20)
[2020-04-26] MEDS ORDERED: BUDE10.22 IH (13:13)
[2020-04-26] MEDS ORDERED: LISI10TA2 PO (13:13)
[2020-04-26] MEDS ORDERED: MIDAZOLAM HCL/PF 5 MG/5 ML VIAL. ONE (13:21)
[2020-04-26] MEDS ORDERED: fentaNYL PF VIAL 100 MCG/2 ML VIAL ONE ×2 (13:21→13:43)
[2020-04-26] MEDS ORDERED: LIDOCAINE WITH 8.4% SOD BICARB 3 ML DISP.SYRIN. IJ ONE (13:30)
[2020-04-26] MEDS ORDERED: fentaNYL PF VIAL 100 MCG/2 ML VIAL IV ONE (13:30)
[2020-04-26] MEDS ORDERED: MIDAZOLAM HCL/PF 5 MG/5 ML VIAL. IV ONE (13:30)
[2020-04-26] MEDS ORDERED: HYDROcodone/APAP 5/325MG 1 TAB TABLET PO ONE (15:15)
--- NOTE | 2020-04-27 11:17 | RAD ---
CT-guided chest tube right chest tube placement. 04/27/2020 9:12 AM Indication: RIGHT PNEUMOTHORAX Discussion: The risks and benefits of the procedure, including but not limited to, bleeding and infection were discussed patient. Informed consent was obtained. The patient was brought to the CT scanner and placed in the supine position. Timeout procedure was performed. CT imaging redemonstrates a large right pneumothorax. No anterior chest was prepped and draped using sterile barrier technique. 1% lidocaine was measured for local anesthesia. The pleural space was accessed with a 5 Serbian sheathed needle, and air freely aspirated. A guidewire was advanced into the pleural space over which following dilatation 8 Serbian pigtail drain was placed. Position was confirmed with CT. Pneumothorax was aspirated. The catheter was connected to the Heimlich valve. Catheter was secured in place. Sterile dressings were applied. Repeat CT demonstrates near total resolution of pneumothorax. The procedure was performed under conscious sedation including continuous cardiopulmonary monitoring via dedicated sedation nurse. [id number] sedation time was 25 minutes Impression: CT-guided right thoracostomy tube placement PQRS Compliance Statement: One or more of the following individualized dose reduction techniques were utilized for this examination: 1. Automated exposure control 2. Adjustment of the mA and/or kV according to patient size 3. Use of iterative reconstruction technique
== END 2020-04-26 16:00 | disposition home or self-care (01) ==
LOC: INTRAD 12:14
PROVIDERS: ATTEND Internal Medicine Pulmonary Disease
DX: J93.9 Pneumothorax, unspecified (principal); K21.9 Gastro-esophageal reflux disease without esophagitis; F41.9 Anxiety disorder, unspecified; F32.9 Major depressive disorder, single episode, unspecified; Z90.49 Acquired absence of other specified parts of digestive tract; Z98.890 Other specified postprocedural states; Z79.899 Other long term (current) drug therapy; Z88.0 Allergy status to penicillin; Z82.49 Family history of ischemic heart disease and other diseases of the circulatory system; Z83.3 Family history of diabetes mellitus
CPT/HCPCS: 32557; 99152; 99153; A4215; C1729; C1892; C1894; J2250; J3010; J3490

== ENCOUNTER → 2020-05-02 | Outpatient (CLI) | payer BC ==
[2020-04-26 15:25] VITALS: BP 110/70
[~2020-05-02] MED LIST changes: +BUDE10.22 IH; +LISI10TA2 PO
--- NOTE | 2020-05-02 16:29 | KCIC ---
CHEST PA LATERAL History: Reason: R/O PNEUMONIA / Spl. Instructions: Pt had a chest tube placed 6 days ago. Follow up CXR. / History: Comparison: AP chest April 24, 2020. Findings: There is right anterior and medial pleural space pigtail catheter. The cardiomediastinal silhouette is normal. Mild elevation right hemidiaphragm. There are linear airspace opacities in the right midlung that may be discoid atelectasis or scarring. Mild atelectasis in the right lung base. The left lung is clear. Trace bilateral pleural effusions. No appreciable pneumothorax. There is no acute bone abnormality. IMPRESSION: 1. Right pleural space pigtail catheter. No appreciable pneumothorax. 2. Discoid atelectasis or scarring in the right midlung. Mild right basilar atelectasis. 3. Trace bilateral pleural effusions. Electronically signed by: Mark Anthony MD (05/02/2020 4:26 PM) [facility]
== END ==
LOC: KCIC 12:46
PROVIDERS: ATTEND Internal Medicine Pulmonary Disease
DX: J98.11 Atelectasis (principal)
CPT/HCPCS: 71046

== ENCOUNTER → 2020-05-15 | Outpatient (CLI) | payer BC ==
[2020-04-26 15:25] VITALS: BP 110/70
--- NOTE | 2020-05-15 14:40 | KCIC ---
AP and Lateral Views of the Chest 05/15/2020 12:00 AM Indication: Reason: RIGHT SIDE PNEUMOTHORAX WITH CHEST TUBE / Spl. Instructions: / History: Comparison: Chest radiograph May 02, 2020. CT chest April 26, 2020 Findings: Elevation of the right hemidiaphragm noted. There is a right sided anterior chest tube. There is no pneumothorax. Left lung is clear. There is a right posterior basilar opacity consistent with the mineralized pleural-based mass is identified on prior CT scan. No acute osseous changes are seen. Heart size is normal. IMPRESSION: 1. Right-sided chest tube without pneumothorax 2. Elevation of the right hemidiaphragm 3. Right medial basilar opacity, consistent with a mineralized pleural-based mass seen on recent CT Electronically signed by: Pedro Rascon MD (05/15/2020 2:38 PM) [id number]
== END ==
LOC: KCIC 13:57
PROVIDERS: ATTEND Internal Medicine Pulmonary Disease
DX: J93.83 Other pneumothorax (principal)
CPT/HCPCS: 71046